=== PATIENT | female | born 1950 | race Caucasian/White ===

== ENCOUNTER 2017-03-19 12:45 | Inpatient (IN) | payer MEDICARE ==
[2017-03-19] MEDS ORDERED: oxyCODONE/Acetamin 5/325 MG* TAB PO ONE (13:41)
--- NOTE | 2017-03-19 14:34 | RAD ---
HISTORY: Bilateral lower extremity cellulitis COMPARISONS: None relevant TECHNIQUE: Multiple transverse and longitudinal ultrasound images were obtained of the bilateral lower extremities from the level of the common femoral vein inferiorly through to the infrapopliteal veins using grayscale, color Doppler, and spectral Doppler imaging with and without compression and with augmentation. FINDINGS: The study is limited by body habitus. This limits evaluation of the calf veins VEINS: The venous system of the bilateral lower extremities is compressible throughout its course, with normal flow on color Doppler imaging and normal response to augmentation on spectral Doppler imaging. SOFT TISSUES: Unremarkable. OTHER FINDINGS: None. IMPRESSION: 1. LIMITED STUDY. 2. NO RIGHT LOWER EXTREMITY DEEP VEIN THROMBOSIS. 3. NO LEFT LOWER EXTREMITY DEEP VEIN THROMBOSIS
[2017-03-19 14:44] LABS: Hematocrit 41 % (35-47); Hemoglobin 13.4 g/dl (12.0-16.0); Mean Corpuscular HGB Conc 33 g/dl (31-36); Mean Corpuscular Hemoglobin 32 pg (27-31); Mean Corpuscular Volume 97 fL (80-97); Mean Platelet Volume 9 um3 (7.4-10.4); Red Blood Count 4.21 10^6/ul (4.0-5.4); Red Cell Distribution Width 17 % (10.5-15); White Blood Count 6.1 10^3/ul (3.5-10.8)
[2017-03-19] MEDS ORDERED: Morphine INJ* 4 MG/ML 1 ML CARPUJECT SUBCUT ONE (14:47)
[2017-03-19] MEDS ORDERED: Morphine INJ* 4 MG/ML 1 ML CARPUJECT ONE (14:49)
[2017-03-19] MEDS ORDERED: Morphine INJ* 4 MG/ML 1 ML CARPUJECT IV ONE ×2 (14:51→16:49)
[2017-03-19 14:55] LABS: Albumin 3.9 g/dL (3.2-5.2); BUN/Creatinine Ratio 14.3 (8-20); C Reactive Protein 19.4 mg/L (< 5.00); Calcium 10.1 mg/dL (8.6-10.3); EGFR Non-African American 62.2 (>60); Potassium 3.3 mmol/L (3.5-5.0); Total Bilirubin 0.8 mg/dL (0.2-1.0); Total Protein 6.9 g/dL (6.4-8.9); Uric Acid 8.2 mg/dL (2.3-6.6)
[2017-03-19] MEDS ORDERED: cefTRIAXone(*) 1 GM in NS 0.9% 50 ML* 50 ML IVPB ONE (16:03)
[2017-03-19] MEDS ORDERED: Potassium Chlor TAB* 20 MEQ TAB.ER PO ONE (16:38)
--- NOTE | 2017-03-19 16:45 | ED ---
Magda Fraga Gabriel scribed for Charly Cm MD on 03/19/17 at 1307 . Complex/Multi-Sys Presentation - HPI Summary HPI Summary: This patient is a 66 year old F BIBA to [facility] with a chief complaint of cellulitis bilateral in both LE. The patient rates the pain 10/10 in severity. Patient reports chronic pain in her upper back, legs, and arms. She also reports SOB while lying down and itching on LE. Patient is able to ambulate with a walker. - History Of Current Complaint Time Seen by Provider: 03/19/17 12:53 Hx Obtained From: Patient Onset/Duration: Still Present Timing: Constant Associated Signs And Symptoms: Positive: SOB, Other - chronic pain in her upper back, legs, and arms. Itching in LE - Allergies/Home Medications Allergies/Adverse Reactions: Allergies Allergy/AdvReac Type Severity Reaction Status Date / Time Iodine Allergy Rash Verified 02/22/17 12:35 Povidone Iodine Allergy Rash Verified 02/22/17 12:35 [From Betadine] hormones Allergy See Comment Uncoded 02/22/17 12:35 PMH/Surg Hx/FS Hx/Imm Hx Previously Healthy: No Cardiovascular History: Reports: Hx Deep Vein Thrombosis, Hx Hypertension Respiratory History: Reports: Hx Chronic Bronchitis, Hx Pulmonary Embolism - 2X Musculoskeletal History: Reports: Hx Back Problems Sensory History: Reports: Hx Contacts or Glasses Denies: Hx Hearing Aid Opthamlomology History: Reports: Hx Contacts or Glasses Psychiatric History: Reports: Hx Anxiety, Hx Eating Disorder, Hx Depression - Cancer History Cancer Type, Location and Year: breast ca Hx Chemotherapy: - unk Hx Radiation Therapy: - unk - Surgical History Surgery Procedure, Year, and Place: hysterectomy, "chest wall replacement," bilateral mastectomy - Family History Known Family History: Positive: Blood Disorder - myelodysplasia (father) - Social History Alcohol Use: None Hx Substance Use: No Substance Use Type: Reports: None Smoking Status (MU): Heavy Every Day Tobacco Smoker Type: Cigarettes Amount Used/How Often: 1 ppd Have You Smoked in the Last Year: Yes Review of Systems Positive: Shortness Of Breath - while lying Positive: Other - chronic pain in her upper back, legs, and arms Positive: Other - Itching in LE All Other Systems Reviewed And Are Negative: Yes Physical Exam - Summary Physical Exam Summary: VITAL SIGNS: Reviewed. GENERAL: ~Patient is an obese female who is lying comfortable in the stretcher with no distress. ~Patient is not in any acute respiratory distress. HEAD AND FACE: No signs of trauma. ~No ecchymosis, hematomas or skull depressions. No sinus tenderness. EYES: PERRLA, EOMI x 2, No injected conjunctiva, no nystagmus. EARS: Hearing grossly intact. Ear canals and tympanic membranes are within normal limits. MOUTH: Oropharynx within normal limits. NECK: Supple, trachea is midline, no adenopathy, no JVD, no carotid bruit, no c- spine tenderness, neck with full ROM. CHEST: Symmetric, no tenderness at palpation LUNGS: Clear to auscultation bilaterally. No wheezing or crackles. CVS: Regular rate and rhythm, S1 and S2 present, no murmurs or gallops appreciated. ABDOMEN: Soft, non-tender. No signs of distention. No rebound no guarding, and no masses palpated. Bowel sounds are normal. EXTREMITIES: FROM in all major joints, no cyanosis or clubbing. There is bilateral 2+ edema extending from her pelvis to her feet. There is also bilateral LE erythema with a wound on her right lemus NEURO: Alert and oriented x 3. No acute neurological deficits. Speech is normal and follows commands. SKIN: Dry and warm Triage Information Reviewed: Yes Vital Signs On Initial Exam: Initial Vitals Temp Pulse Resp BP Pulse Ox 97.6 F 80 14 106/61 98 03/19/17 12:58 03/19/17 12:58 03/19/17 12:58 03/19/17 12:58 03/19/17 12:58 Vital Signs Reviewed: Yes Diagnostics - Vital Signs Vital Signs Temp Pulse Resp BP Pulse Ox 03/19/17 14:53 20 03/19/17 14:33 20 03/19/17 14:20 86 21 106/84 97 03/19/17 14:00 94 19 65/50 86 03/19/17 13:30 82 16 98/64 99 03/19/17 13:03 87 14 98 03/19/17 13:01 106/61 03/19/17 12:58 97.6 F 80 14 106/61 98 - Laboratory Lab Results: Lab Results 03/19/17 03/19/17 03/19/17 Range/Units 14:31 14:31 14:31 WBC 6.1 (3.5-10.8) 10^3/ul RBC 4.21 (4.0-5.4) 10^6/ul Hgb 13.4 (12.0-16.0) g/dl Hct 41 (35-47) % MCV 97 (80-97) fL MCH 32 H (27-31) pg MCHC 33 (31-36) g/dl RDW 17 H (10.5-15) % Plt Count 177 (150-450) 10^3/ul MPV 9 (7.4-10.4) um3 Neut % (Auto) 65.4 (38-83) % Lymph % (Auto) 18.6 L (25-47) % Porter % (Auto) 10.0 H (1-9) % Eos % (Auto) 4.8 (0-6) % Baso % (Auto) 1.2 (0-2) % Absolute Neuts (auto) 4.0 (1.5-7.7) 10^3/ul Absolute Lymphs (auto) 1.1 (1.0-4.8) 10^3/ul Absolute Monos (auto) 0.6 (0-0.8) 10^3/ul Absolute Eos (auto) 0.3 (0-0.6) 10^3/ul Absolute Basos (auto) 0.1 (0-0.2) 10^3/ul Absolute Nucleated RBC 0 10^3/ul Nucleated RBC % 0.1 Sodium 142 (133-145) mmol/L Potassium 3.3 L (3.5-5.0) mmol/L Chloride 105 (101-111) mmol/L Carbon Dioxide 30 (22-32) mmol/L Anion Gap 7 (2-11) mmol/L BUN 13 (6-24) mg/dL Creatinine 0.91 (0.51-0.95) mg/dL Est GFR ( Amer) 80.0 (>60) Est GFR (Non-Af Amer) 62.2 (>60) BUN/Creatinine Ratio 14.3 (8-20) Glucose 93 (70-100) mg/dL Lactic Acid 1.2 (0.5-2.0) mmol/L Uric Acid 8.2 H (2.3-6.6) mg/dL Calcium 10.1 (8.6-10.3) mg/dL Total Bilirubin 0.80 (0.2-1.0) mg/dL AST 15 (13-39) U/L ALT 7 (7-52) U/L Alkaline Phosphatase 126 H (34-104) U/L C-Reactive Protein 19.40 H (< 5.00) mg/L B-Natriuretic Peptide ( - 100) pg/mL Total Protein 6.9 (6.4-8.9) g/dL Albumin 3.9 (3.2-5.2) g/dL Globulin 3.0 (2-4) g/dL Albumin/Globulin Ratio 1.3 (1-3) // Range/Units 14:31 WBC (3.5-10.8) 10^3/ul RBC (4.0-5.4) 10^6/ul Hgb (12.0-16.0) g/dl Hct (35-47) % MCV (80-97) fL MCH (27-31) pg MCHC (31-36) g/dl RDW (10.5-15) % Plt Count (150-450) 10^3/ul MPV (7.4-10.4) um3 Neut % (Auto) (38-83) % Lymph % (Auto) (25-47) % Porter % (Auto) (1-9) % Eos % (Auto) (0-6) % Baso % (Auto) (0-2) % Absolute Neuts (auto) (1.5-7.7) 10^3/ul Absolute Lymphs (auto) (1.0-4.8) 10^3/ul Absolute Monos (auto) (0-0.8) 10^3/ul Absolute Eos (auto) (0-0.6) 10^3/ul Absolute Basos (auto) (0-0.2) 10^3/ul Absolute Nucleated RBC 10^3/ul Nucleated RBC % Sodium (133-145) mmol/L Potassium (3.5-5.0) mmol/L Chloride (101-111) mmol/L Carbon Dioxide (22-32) mmol/L Anion Gap (2-11) mmol/L BUN (6-24) mg/dL Creatinine (0.51-0.95) mg/dL Est GFR ( Amer) (>60) Est GFR (Non-Af Amer) (>60) BUN/Creatinine Ratio (8-20) Glucose (70-100) mg/dL Lactic Acid (0.5-2.0) mmol/L Uric Acid (2.3-6.6) mg/dL Calcium (8.6-10.3) mg/dL Total Bilirubin (0.2-1.0) mg/dL AST (13-39) U/L ALT (7-52) U/L Alkaline Phosphatase (34-104) U/L C-Reactive Protein (< 5.00) mg/L B-Natriuretic Peptide 60 ( - 100) pg/mL Total Protein (6.4-8.9) g/dL Albumin (3.2-5.2) g/dL Globulin (2-4) g/dL Albumin/Globulin Ratio (1-3) Result Diagrams: 03/19/17 14:31 03/19/17 14:31 Lab Statement: Any lab studies that have been ordered have been reviewed, and results considered in the medical decision making process. - Additional Comments Diagnostic Additional Comments: Venous Doppler study reveals, per radiologist, 1. LIMITED STUDY. 2. NO RIGHT LOWER EXTREMITY DEEP VEIN THROMBOSIS. 3. NO LEFT LOWER EXTREMITY DEEP VEIN THROMBOSIS ED physician has reviewed this radiology report and agrees Complex Multi-Symp Course/Dx Assessment/Plan: In the ED course an IV access was obtained. Patient was placed in a threat monitoring analyst. Labs without any significant abnormality except for K+ 33 for which she was given potassium chloride. CRP is 19.4. Troponin #1: and Troponin # 2 (4 hours later): EKG shows a NSR at w/o ST elevations. CXR impression: No acute pathology. B/L LE U/S impression: 1. LIMITED STUDY. 2. NO RIGHT LOWER EXTREMITY DEEP VEIN THROMBOSIS. 3. NO LEFT LOWER EXTREMITY DEEP VEIN THROMBOSIS. Patient was started in Ceftriaxone for B/L LE cellulitis. I discuss my physical exam, findings and test results with Dr. Mata from the hospitalist services and she agrees to admit patient to his services. Patient is hemodynamically stable alert and oriented x 3. - Diagnoses Provider Diagnoses: Cellulitis of lower extremity, Edema of both lower legs due to peripheral venous insufficiency - Physician Notifications Discussed Care Of Patient With: Meka Mata Time Discussed With Above Provider: 16:16 Instructed by Provider To: Other - Discussed patient care with Dr. Mata, Hopitalist, who agreed to admit the patient Discharge - Discharge Plan Condition: Stable Disposition: ADMITTED TO [facility] Referrals: Dee BANEGAS,Orlando Todd [Primary Care Provider] - The documentation as recorded by the Magda her Gabriel accurately reflects the service I personally performed and the decisions made by me, Charly Cm MD.
[2017-03-19] MEDS ORDERED: Ondansetron INJ* 2 MG/ML VIAL IV PRN (16:53)
[2017-03-19] MEDS ORDERED: oxyCODONE/Acetamin 5/325 MG* TAB PO PRN (16:54)
[2017-03-19] MEDS ORDERED: Furosemide IV* 10 MG/ML VIAL (40 MG) IV SLOW PU ONE (17:01)
[2017-03-19] MEDS ORDERED: oxyCODONE TAB* 5 MG TAB PO PRN (17:03)
[2017-03-19 18:36] LABS: Urine Bacteria Absent (Absent); Urine Bilirubin Negative (Negative); Urine Glucose Negative (Negative); Urine Nitrite Negative (Negative)
--- NOTE | 2017-03-19 19:10 | HP ---
CC: Dr. Orlando Price HISTORY AND PHYSICAL: DATE OF ADMISSION: 03/19/17 TIME OF EVALUATION: 04:30 p.m. PRIMARY CARE PROVIDER: Dr. Orlando Price. CHIEF COMPLAINT: "My legs are swollen and then red." HISTORY OF PRESENT ILLNESS: Mrs. Hutton is a 66-year-old lady with a past medical history of morbid o besity, history of multiple DVTs and PEs, chronically anticoagulated on Coumadin, remote history of b reast cancer, chronic pain, depression, recent admission for right lower extremity cellulitis and acu te diastolic CHF exacerbation that presented to the emergency room with complaints of bilateral lower extremity edema and erythema. The patient was admitted to [facility] from February 22 to February 25. She was discharged home on furose mide 40 mg daily and Keflex. She states that her edema had improved and the right lower extremity er ythema was also improved, although she does have chronic skin changes. She states that she was tryin g to be compliant with medication and diet, but 5 days ago she started to notice worsening of the rashida ateral lower extremity edema with erythema that started on her feet and ascended all the way to mid t high. She denies fever, but she did have some chills and both legs became severely painful to the po int that she was not able to transfer or ambulate with her walker as usual. On her prior admission, the precipitant factor had been a cat scratch to her right leg, but this time she is not aware of any trauma. She actually thought that the right lower extremity wound was much improved from before. PAST MEDICAL HISTORY: 1. Morbid obesity. 2. History of multiple DVTs and PEs, on chronic anticoagulation on warfarin. 3. Remote history of breast cancer, status post bilateral mastectomy. 4. Chronic pain. 5. Depression. 6. Recent admission for right lower extremity cellulitis. 7. Newly diagnosed diastolic heart failure. MEDICATION LIST: 1. Cholecalciferol 50,000 units p.o. weekly. 2. Furosemide 40 mg p.o. b.i.d. 3. Lorazepam 0.5 mg p.o. at bedtime. 4. Mupirocin 2% ointment topical daily. 5. Nystatin powder topical daily p.r.n. for rash. 6. OxyContin 20 mg p.o. q.12 hours. 7. Oxycodone 10/325 mg 1 tablet p.o. t.i.d. p.r.n. pain. 8. Paroxetine 40 mg p.o. q.a.m. 9. Potassium chloride 20 mEq p.o. b.i.d. with meals. 10. Pramipexole 2 mg p.o. at bedtime. 11. Lyrica 75 mg p.o. t.i.d. 12. Warfarin 2.5 mg p.o. daily. ALLERGIES: With IODINE, the patient had the rash and when the patient was on HORMONES, she had a PE. FAMILY HISTORY: Reviewed and noncontributory. SOCIAL HISTORY: The patient smokes half a pack a day. No history of alcohol or drug use. Surrogate decision maker is her sister, Elaine Abel; phone number is [phone]. REVIEW OF SYSTEMS: A 14-point review of systems was performed and all the pertinent negative and pos itive findings are in the HPI. PHYSICAL EXAMINATION GENERAL: The patient is an elderly, morbidly obese lady, sitting up in the ED stretcher, in no acute distress. VITAL SIGNS: Temperature 97.6, heart rate is 86, respiratory rate is 20, oxygen saturation is 97% on room air, blood pressure is 106/84. HEENT: Pupils are equal. Moist mucous membranes. CHEST: Breath sounds present bilaterally with bibasilar rales. The patient is status post bilateral mastectomies. CVS: Normal S1, S2. Regular rate and rhythm. ABDOMEN: Obese with significant pannus and lymphedema, but no erythema. The patient has a moist lizette thematous rash to her inguinal folds. EXTREMITIES: Lower extremity edema. The patient has chronic lymphedema that appears to be worse at this time with edema extending from her feet all the way to mid thigh. This erythema does not extend to her upper thigh or genital/pannus area. NEUROLOGIC: She is alert, awake, and oriented x3. Able to move all 4 extremities. LABORATORY AND IMAGING DATA: Her CBC showed a WBC of 6.1, hemoglobin of 13.4, hematocrit of 41, abdoulaye telets of 177 with 65% neutrophils. INR is 1.8. Chemistry showed sodium of 142, potassium 3.3, chlo ride of 105, bicarb of 30, BUN of 13, creatinine 0.9, glucose of 93, lactic acid of 1.2, uric acid of 8.2, calcium of 10.1. LFTs are normal except for alk phos of 126. Lower extremity Doppler showed no DVT on both lower extremities. ASSESSMENT AND PLAN: Mrs. Hutton is a 66-year-old lady with a past medical history of morbid obesity, history of multiple DVTs and PEs, breast cancer, status post bilateral mastectomy, chronic pain, dep ression, tobacco abuse, who presents to the emergency room with complaints of bilateral lower extremi ty pain, edema, and erythema, found to have acute diastolic congestive heart failure exacerbation and bilateral lower extremity cellulitis. 1. Acute diastolic congestive heart failure exacerbation. This is certainly driving her bilateral l ower extremity edema. We are going to change her furosemide to IV, monitor I's and O's and daily mya ghts. 2. Bilateral lower extremity cellulitis. The patient will be treated with cefepime. She states josé luis t her right lower extremity wound is much improved from before. I am going to request a wound consul t. 3. Intertrigo. We are going to give her nystatin powder. 4. History of PE and DVT. We are going to continue her warfarin. INR is 1.8 at this time. If by t omorrow her INR is still below 2, she may need some bridging with Lovenox. 5. Hypokalemia. We will replete. 6. DVT prophylaxis. The patient has a score of 8 on the DVT Prophylaxis Risk Assessment Guide and s he is already anticoagulated with Coumadin, but SCDs are contraindicated due to her lower extremity i nfection. 7. Code status is full. TIME SPENT: Approximately 65 minutes were spent with the patient interview, medical records review, physical examination to complete this admission; more than half of this time was spent [id number] with the patient in coordination of care. [id number]/[facility] #: [id number]
[2017-03-19] MEDS: Warfarin TAB(*) 2.5 MG PO SCH (19:23)
[2017-03-19] MEDS: Potassium Chlor TAB* 20 MEQ TAB.ER PO SCH (19:25)
[2017-03-19] MEDS: Cefepime(*) 1 GM in NS 0.9% 50 ML* 50 ML IVPB SCH (19:25)
[2017-03-19] MEDS: Nystatin TOP POWDER* 15 GM BTL TOPICAL SCH (21:12)
[2017-03-19] MEDS: oxyCODONE SR TAB(*) 20 MG TAB.SR PO SCH (21:17)
[2017-03-19] MEDS: Pregabalin CAP(*) 25 MG PO SCH (21:17)
[2017-03-19] MEDS: Acetaminophen TAB* 325 MG PO PRN (21:18)
[2017-03-19] MEDS: Pramipexole TAB* 0.5 MG PO SCH (21:19)
[2017-03-19] MEDS: LORazepam TAB(*) 0.5 MG PO SCH (21:20)
[2017-03-20] MEDS: Acetaminophen TAB* 325 MG PO PRN (05:43)
[2017-03-20] MEDS: Cefepime(*) 1 GM in NS 0.9% 50 ML* 50 ML IVPB SCH (06:00)
[2017-03-20] MEDS: oxyCODONE TAB* 5 MG TAB PO PRN ×4 (06:07→22:44)
[2017-03-20] MEDS: oxyCODONE/Acetamin 5/325 MG* TAB PO PRN ×3 (06:07→22:45)
[2017-03-20 07:31] LABS: Calcium 9.2 mg/dL (8.6-10.3); EGFR Non-African American 61.5 (>60); Potassium 3.7 mmol/L (3.5-5.0)
[2017-03-20] MEDS ORDERED: Furosemide IV* 10 MG/ML VIAL (40 MG) IV SLOW PU ONE (07:37)
[2017-03-20] MEDS ORDERED: Furosemide IV* 10 MG/ML VIAL (40 MG) ONE (07:41)
[2017-03-20] MEDS: Potassium Chlor TAB* 20 MEQ TAB.ER PO SCH ×2 (07:44→17:04)
[2017-03-20] MEDS: Pregabalin CAP(*) 25 MG PO SCH ×3 (07:45→22:46)
[2017-03-20] MEDS: PARoxetine HCL TAB* 40 MG PO SCH (07:45)
[2017-03-20] MEDS: oxyCODONE SR TAB(*) 20 MG TAB.SR PO SCH ×2 (07:45→22:45)
[2017-03-20 08:28] LABS: Hematocrit 36 % (35-47); Hemoglobin 11.6 g/dl (12.0-16.0); Mean Corpuscular HGB Conc 33 g/dl (31-36); Mean Corpuscular Hemoglobin 32 pg (27-31); Mean Corpuscular Volume 98 fL (80-97); Mean Platelet Volume 9 um3 (7.4-10.4); Red Blood Count 3.64 10^6/ul (4.0-5.4); Red Cell Distribution Width 16 % (10.5-15); White Blood Count 5.2 10^3/ul (3.5-10.8)
[2017-03-20] MEDS ORDERED: Cefepime(*) 1 GM in D5W 50 ML BAG* 50 ML IVPB SCH (08:45)
--- NOTE | 2017-03-20 09:56 | PN ---
Subjective Date of Service: 03/20/17 Interval History: HOSPITALIST PROGRESS NOTE Patient seen and examined at bedside. She offers no new complaints today, getting ready to work with PT. Family History: Unchanged from Admission Social History: Unchanged from Admission Past Medical History: Unchanged from Admission Objective Active Medications: Acetaminophen (Tylenol Tab*) 650 mg PO Q6H PRN PRN Reason: pain/fever Last Admin: 03/20/17 05:43 Dose: 650 mg Cefepime HCl 1 gm/ Dextrose 50 mls @ 100 mls/hr IVPB 0600,1800 [facility] Lorazepam (Ativan Tab(*)) 0.5 mg PO BEDTIME [facility] Last Admin: 03/19/17 21:20 Dose: 0.5 mg Nystatin (Nystatin Top Powder*) 1 applic TOPICAL TID [facility] Last Admin: 03/19/17 21:12 Dose: 1 applic Ondansetron HCl (Zofran Inj*) 4 mg IV Q6H PRN PRN Reason: NAUSEA Oxycodone HCl (Oxycontin(*)) 20 mg PO Q12HR [facility] Last Admin: 03/20/17 07:45 Dose: 20 mg Oxycodone HCl (Roxycodone Tab*) 5 mg PO Q6H PRN PRN Reason: PAIN Last Admin: 03/20/17 06:07 Dose: 5 mg Oxycodone/Acetaminophen (Percocet 5/325 Tab*) 1 tab PO Q6H PRN PRN Reason: PAIN Last Admin: 03/20/17 06:07 Dose: 1 tab Paroxetine HCl (Paxil Tab*) 40 mg PO QAM [facility] Last Admin: 03/20/17 07:45 Dose: 40 mg Potassium Chloride (Klor Con Er Tab*) 20 meq PO BID WITH MEALS [facility] Last Admin: 03/20/17 07:44 Dose: 20 meq Pramipexole Dihydrochloride (Mirapex Tab*) 2 mg PO BEDTIME [facility] Last Admin: 03/19/17 21:19 Dose: 2 mg Pregabalin (Lyrica Cap(*)) 75 mg PO TID [facility] Last Admin: 03/20/17 07:45 Dose: 75 mg Warfarin Sodium (Coumadin Tab(*)) 2.5 mg PO DAILY@1700 [facility] PRN Reason: Protocol Last Admin: 03/19/17 19:23 Dose: 2.5 mg Vital Signs 03/19/17 03/20/17 03/20/17 23:51 00:09 03:53 Temperature 98.5 F 98.7 F Pulse Rate 92 91 Respiratory 20 18 20 Rate Blood Pressure 94/54 92/56 (mmHg) O2 Sat by Pulse 92 93 Oximetry Oxygen Devices in Use Now: None Appearance: Elderly morbid obese lady sitting up in bed in NAD. Eyes: No Scleral Icterus Ears/Nose/Mouth/Throat: Mucous Membranes Moist Neck: Trachea Midline Respiratory: Symmetrical Chest Expansion and Respiratory Effort, - - BS+ bilaterally with bibasilar rales Cardiovascular: RRR - Normal S1 and S2 Extremities: - - Bilateral LE edema chronic lymphedema, with erythema, less intense than yesterday Neurological: Alert and Oriented x 3, NL Muscle Strength and Tone Result Diagrams: 03/20/17 08:20 03/20/17 05:51 Assess/Plan/Problems-Billing Assessment: Mrs. Hutton is a 66yo F with PMH of morbid obesity with BMI 44, multiple PE/DVTs , remote h/o breast CA s/p bilateral mastectomies, chronic pain, depression, diastolic CHF, who presented to ED with worsening edema/erythema of bilateral LE , found to have bilateral LE cellulitis and CHF exacerbation. - Patient Problems (1) Acute diastolic CHF (congestive heart failure) Comment: - Continue diuresis with Furosemide, monitor I/Os and daily weights. (2) Cellulitis Comment: - No purulence, probable strep infection. - Continue Cefepime. - Wound consult requested. (3) Intertrigo Comment: - Continue Nystatin powder. (4) History of pulmonary embolus (PE) Comment: - INR is 2.2. - Continue Warfarin. (5) DVT prophylaxis Comment: - Warfarin. (6) Full code status (7) Physical deconditioning Comment: - PT evaluation. Status and Disposition: Inpatient.
[2017-03-20] MEDS: Nystatin TOP POWDER* 15 GM BTL TOPICAL SCH ×3 (11:20→23:28)
[2017-03-20] MEDS: Cefepime(*) 1 GM in D5W 50 ML BAG* 50 ML IVPB SCH (17:04)
[2017-03-20] MEDS: Lidocaine PATCH 5%* 1 PATCH TRANSDERM SCH (17:04)
[2017-03-20] MEDS: Warfarin TAB(*) 2.5 MG PO SCH (17:05)
[2017-03-20] MEDS: Pramipexole TAB* 0.5 MG PO SCH (22:46)
[2017-03-20] MEDS: LORazepam TAB(*) 0.5 MG PO SCH (22:46)
[2017-03-20] MEDS: Lidocaine Patch REMOVE* 1 NOTE MISC SCH (22:47)
[2017-03-21] MEDS: Cefepime(*) 1 GM in D5W 50 ML BAG* 50 ML IVPB SCH ×2 (06:55→17:20)
[2017-03-21] MEDS: Lidocaine PATCH 5%* 1 PATCH TRANSDERM SCH (07:55)
[2017-03-21] MEDS: Pregabalin CAP(*) 25 MG PO SCH ×3 (07:56→22:18)
[2017-03-21] MEDS: oxyCODONE/Acetamin 5/325 MG* TAB PO PRN ×2 (07:56→14:41)
[2017-03-21] MEDS: oxyCODONE TAB* 5 MG TAB PO PRN ×2 (07:56→14:41)
[2017-03-21] MEDS: PARoxetine HCL TAB* 40 MG PO SCH (07:57)
[2017-03-21] MEDS: oxyCODONE SR TAB(*) 20 MG TAB.SR PO SCH ×2 (07:57→22:18)
[2017-03-21] MEDS: Potassium Chlor TAB* 20 MEQ TAB.ER PO SCH ×2 (07:57→17:20)
[2017-03-21 08:09] LABS: BUN/Creatinine Ratio 15.4 (8-20); Calcium 8.9 mg/dL (8.6-10.3); EGFR African American 68.6 (>60); EGFR Non-African American 53.3 (>60)
[2017-03-21] MEDS ORDERED: Furosemide IV* 10 MG/ML VIAL (40 MG) IV SLOW PU ONE (09:09)
[2017-03-21] MEDS: Nystatin TOP POWDER* 15 GM BTL TOPICAL SCH ×3 (11:40→22:16)
--- NOTE | 2017-03-21 14:45 | PN ---
Subjective Date of Service: 03/21/17 Interval History: HOSPITALIST PROGRESS NOTE Patient seen and examined at bedside. She offers no new complaints today. Breathing is easier, legs are less swollen and red. Family History: Unchanged from Admission Social History: Unchanged from Admission Past Medical History: Unchanged from Admission Objective Active Medications: Acetaminophen (Tylenol Tab*) 650 mg PO Q6H PRN PRN Reason: pain/fever Last Admin: 03/20/17 05:43 Dose: 650 mg Cefepime HCl 1 gm/ Dextrose 50 mls @ 100 mls/hr IVPB 0600,1800 REPLACED BY [facility] Last Admin: 03/21/17 06:55 Dose: 100 mls/hr Lidocaine (Lidoderm 5% Patch*) 1 patch TRANSDERM DAILY REPLACED BY [facility] Last Admin: 03/21/17 07:55 Dose: 1 patch Lorazepam (Ativan Tab(*)) 0.5 mg PO BEDTIME REPLACED BY [facility] Last Admin: 03/20/17 22:46 Dose: 0.5 mg Nystatin (Nystatin Top Powder*) 1 applic TOPICAL TID REPLACED BY [facility] Last Admin: 03/21/17 11:40 Dose: 1 applic Ondansetron HCl (Zofran Inj*) 4 mg IV Q6H PRN PRN Reason: NAUSEA Oxycodone HCl (Oxycontin(*)) 20 mg PO Q12HR REPLACED BY [facility] Last Admin: 03/21/17 07:57 Dose: 20 mg Oxycodone HCl (Roxycodone Tab*) 10 mg PO Q6H PRN PRN Reason: PAIN Last Admin: 03/21/17 07:56 Dose: 10 mg Oxycodone/Acetaminophen (Percocet 5/325 Tab*) 1 tab PO Q6H PRN PRN Reason: PAIN Last Admin: 03/21/17 07:56 Dose: 1 tab Paroxetine HCl (Paxil Tab*) 40 mg PO QAM REPLACED BY [facility] Last Admin: 03/21/17 07:57 Dose: 40 mg Pharmacy Profile Note (Lidocaine Patch Remove*) 1 note N/A 2100 REPLACED BY [facility] Last Admin: 03/20/17 22:47 Dose: 1 note Potassium Chloride (Klor Con Er Tab*) 20 meq PO BID WITH MEALS REPLACED BY [facility] Last Admin: 03/21/17 07:57 Dose: 20 meq Pramipexole Dihydrochloride (Mirapex Tab*) 2 mg PO BEDTIME REPLACED BY [facility] Last Admin: 03/20/17 22:46 Dose: 2 mg Pregabalin (Lyrica Cap(*)) 75 mg PO TID REPLACED BY [facility] Last Admin: 03/21/17 07:56 Dose: 75 mg Warfarin Sodium (Coumadin Tab(*)) 2.5 mg PO DAILY@1700 REPLACED BY [facility] PRN Reason: Protocol Last Admin: 03/20/17 17:05 Dose: 2.5 mg Vital Signs 03/21/17 03/21/17 03/21/17 07:57 08:00 08:11 Temperature 98.1 F Pulse Rate 86 Respiratory 16 16 16 Rate Blood Pressure 103/58 (mmHg) O2 Sat by Pulse 94 Oximetry Oxygen Devices in Use Now: None Appearance: Morbid obese lady sitting up in a recliner in NAD. Eyes: No Scleral Icterus Ears/Nose/Mouth/Throat: Mucous Membranes Moist Neck: Trachea Midline Respiratory: Symmetrical Chest Expansion and Respiratory Effort, - - BS+ bialterally decreased in bases Cardiovascular: RRR - Normal S1 and s2 Abdominal: NL Sounds; No Tenderness; No Distention - large pannus, but with no erythema Extremities: - - Bilateral LE lymphedema with chronic skin changes, erythema is improving Neurological: Alert and Oriented x 3, NL Muscle Strength and Tone Result Diagrams: 03/20/17 08:20 03/21/17 05:39 Assess/Plan/Problems-Billing Assessment: Mrs. Hutton is a 66yo F with PMH of morbid obesity with BMI 44, multiple PE/DVTs , remote h/o breast CA s/p bilateral mastectomies, chronic pain, depression, diastolic CHF, who presented to ED with worsening edema/erythema of bilateral LE , found to have bilateral LE cellulitis and CHF exacerbation. - Patient Problems (1) Acute diastolic CHF (congestive heart failure) Comment: - Continue diuresis with Furosemide, monitor I/Os and daily weights. (2) Cellulitis Comment: - No purulence, probable strep infection. - Continue Cefepime. - Wound consult requested. (3) Intertrigo Comment: - Continue Nystatin powder. (4) History of pulmonary embolus (PE) Comment: - INR is 2.2. - Continue Warfarin. (5) DVT prophylaxis Comment: - Warfarin. (6) SMILEY (obstructive sleep apnea) Comment: - Non compliant with CPAP at home, but willing to try it again in the hospital. (7) Full code status (8) Physical deconditioning Comment: - PT evaluation. Status and Disposition: Inpatient.
[2017-03-21] MEDS: Warfarin TAB(*) 2.5 MG PO SCH (17:20)
[2017-03-21] MEDS: LORazepam TAB(*) 0.5 MG PO SCH (22:17)
[2017-03-21] MEDS: Lidocaine Patch REMOVE* 1 NOTE MISC SCH (22:19)
[2017-03-21] MEDS: Pramipexole TAB* 0.5 MG PO SCH (22:19)
[2017-03-22] MEDS: oxyCODONE TAB* 5 MG TAB PO PRN ×4 (01:10→23:06)
[2017-03-22] MEDS: oxyCODONE/Acetamin 5/325 MG* TAB PO PRN ×3 (01:12→17:04)
[2017-03-22] MEDS: Cefepime(*) 1 GM in D5W 50 ML BAG* 50 ML IVPB SCH ×2 (05:19→17:04)
[2017-03-22 06:42] LABS: Hematocrit 35 % (35-47); Hemoglobin 11.6 g/dl (12.0-16.0); Mean Corpuscular HGB Conc 33 g/dl (31-36); Mean Corpuscular Hemoglobin 33 pg (27-31); Mean Corpuscular Volume 98 fL (80-97); Mean Platelet Volume 9 um3 (7.4-10.4); Red Blood Count 3.56 10^6/ul (4.0-5.4); Red Cell Distribution Width 16 % (10.5-15); White Blood Count 5.8 10^3/ul (3.5-10.8)
[2017-03-22 06:55] LABS: BUN/Creatinine Ratio 16.3 (8-20); Calcium 9.2 mg/dL (8.6-10.3); EGFR African American 68.6 (>60); EGFR Non-African American 53.3 (>60)
[2017-03-22] MEDS: Lidocaine PATCH 5%* 1 PATCH TRANSDERM SCH (08:08)
[2017-03-22] MEDS: Pregabalin CAP(*) 25 MG PO SCH ×3 (08:09→22:24)
[2017-03-22] MEDS: PARoxetine HCL TAB* 40 MG PO SCH (08:09)
[2017-03-22] MEDS: oxyCODONE SR TAB(*) 20 MG TAB.SR PO SCH ×2 (08:09→22:21)
[2017-03-22] MEDS: Potassium Chlor TAB* 20 MEQ TAB.ER PO SCH ×2 (08:10→17:03)
[2017-03-22] MEDS: Nystatin TOP POWDER* 15 GM BTL TOPICAL SCH ×3 (10:55→22:26)
[2017-03-22] MEDS ORDERED: Furosemide IV* 10 MG/ML 2 ML VIAL (20 MG) IV SLOW PU ONE (11:40)
--- NOTE | 2017-03-22 14:46 | PN ---
Subjective Date of Service: 03/22/17 Interval History: HOSPITALIST PROGRESS NOTE Patient seen and examined at bedside. She offers no new complaints today. Breathing is improved, but could not tolerated CPAP overnight. Family History: Unchanged from Admission Social History: Unchanged from Admission Past Medical History: Unchanged from Admission Objective Active Medications: Acetaminophen (Tylenol Tab*) 650 mg PO Q6H PRN PRN Reason: pain/fever Last Admin: 03/20/17 05:43 Dose: 650 mg Cefepime HCl 1 gm/ Dextrose 50 mls @ 100 mls/hr IVPB 0600,1800 [facility] Last Admin: 03/22/17 05:19 Dose: 100 mls/hr Lidocaine (Lidoderm 5% Patch*) 1 patch TRANSDERM DAILY [facility] Last Admin: 03/22/17 08:08 Dose: 1 patch Lorazepam (Ativan Tab(*)) 0.5 mg PO BEDTIME [facility] Last Admin: 03/21/17 22:17 Dose: 0.5 mg Nystatin (Nystatin Top Powder*) 1 applic TOPICAL TID [facility] Last Admin: 03/22/17 12:39 Dose: Not Given Ondansetron HCl (Zofran Inj*) 4 mg IV Q6H PRN PRN Reason: NAUSEA Oxycodone HCl (Oxycontin(*)) 20 mg PO Q12HR [facility] Last Admin: 03/22/17 08:09 Dose: 20 mg Oxycodone HCl (Roxycodone Tab*) 10 mg PO Q6H PRN PRN Reason: PAIN Last Admin: 03/22/17 08:09 Dose: 10 mg Oxycodone/Acetaminophen (Percocet 5/325 Tab*) 1 tab PO Q6H PRN PRN Reason: PAIN Last Admin: 03/22/17 08:10 Dose: 1 tab Paroxetine HCl (Paxil Tab*) 40 mg PO QAM [facility] Last Admin: 03/22/17 08:09 Dose: 40 mg Pharmacy Profile Note (Lidocaine Patch Remove*) 1 note N/A 2100 [facility] Last Admin: 03/21/17 22:19 Dose: 1 note Potassium Chloride (Klor Con Er Tab*) 20 meq PO BID WITH MEALS [facility] Last Admin: 03/22/17 08:10 Dose: 20 meq Pramipexole Dihydrochloride (Mirapex Tab*) 2 mg PO BEDTIME [facility] Last Admin: 03/21/17 22:19 Dose: 2 mg Pregabalin (Lyrica Cap(*)) 75 mg PO TID [facility] Last Admin: 03/22/17 12:39 Dose: 75 mg Warfarin Sodium (Coumadin Tab(*)) 2.5 mg PO DAILY@1700 [facility] PRN Reason: Protocol Last Admin: 03/21/17 17:20 Dose: 2.5 mg Vital Signs 03/22/17 03/22/17 03/22/17 04:41 07:56 08:00 Temperature 97.7 F Pulse Rate 68 Respiratory 18 20 16 Rate Blood Pressure 95/51 (mmHg) O2 Sat by Pulse 96 Oximetry Oxygen Devices in Use Now: None Appearance: Morbid obese lady sitting up in a recliner in NAD. Eyes: No Scleral Icterus Ears/Nose/Mouth/Throat: Mucous Membranes Moist Neck: Trachea Midline Respiratory: Symmetrical Chest Expansion and Respiratory Effort, - - BS+ bilaterally with bibasilar rales Cardiovascular: RRR - Normal S1 and S2 Abdominal: NL Sounds; No Tenderness; No Distention - with large pannus Extremities: - - Bilateral LE edema, with improvement of erythema Neurological: Alert and Oriented x 3, NL Muscle Strength and Tone Result Diagrams: 03/22/17 06:24 03/22/17 06:25 Assess/Plan/Problems-Billing Assessment: Mrs. Hutton is a 66yo F with PMH of morbid obesity with BMI 44, multiple PE/DVTs , remote h/o breast CA s/p bilateral mastectomies, chronic pain, depression, diastolic CHF, who presented to ED with worsening edema/erythema of bilateral LE , found to have bilateral LE cellulitis and CHF exacerbation. - Patient Problems (1) Acute diastolic CHF (congestive heart failure) Comment: - Continue diuresis with Furosemide, monitor I/Os and daily weights. (2) Cellulitis Comment: - No purulence, probable strep infection. - Continue Cefepime. - Wound consult requested. (3) Intertrigo Comment: - Continue Nystatin powder. (4) History of pulmonary embolus (PE) Comment: - INR is 3.05. - Hold Warfarin tonight. (5) DVT prophylaxis Comment: - Warfarin. (6) SMILEY (obstructive sleep apnea) Comment: - Non compliant with CPAP at home, but willing to try it again in the hospital. (7) Full code status (8) Physical deconditioning Comment: - PT evaluation appreciated. - Lengthy conversation with patient about SNF placement for rehab. She states she had bad experiences in SNFs before and will never go again. Her plan is to go home with assistance. Status and Disposition: Inpatient.
[2017-03-22] MEDS: LORazepam TAB(*) 0.5 MG PO SCH (22:20)
[2017-03-22] MEDS: Pramipexole TAB* 0.5 MG PO SCH (22:22)
[2017-03-22] MEDS: Lidocaine Patch REMOVE* 1 NOTE MISC SCH (22:26)
[2017-03-23] MEDS: oxyCODONE/Acetamin 5/325 MG* TAB PO PRN ×2 (04:09→16:07)
[2017-03-23 04:19] VITALS: BP 97/60
[2017-03-23] MEDS: Cefepime(*) 1 GM in D5W 50 ML BAG* 50 ML IVPB SCH (05:13)
[2017-03-23 06:44] LABS: BUN/Creatinine Ratio 18.5 (8-20); Calcium 9.1 mg/dL (8.6-10.3); EGFR Non-African American 61.5 (>60)
[2017-03-23] MEDS: Potassium Chlor TAB* 20 MEQ TAB.ER PO SCH (08:21)
[2017-03-23] MEDS: Lidocaine PATCH 5%* 1 PATCH TRANSDERM SCH (08:24)
[2017-03-23] MEDS: Nystatin TOP POWDER* 15 GM BTL TOPICAL SCH (08:25)
[2017-03-23] MEDS: oxyCODONE SR TAB(*) 20 MG TAB.SR PO SCH (08:25)
[2017-03-23] MEDS: PARoxetine HCL TAB* 40 MG PO SCH (08:27)
[2017-03-23] MEDS: Pregabalin CAP(*) 25 MG PO SCH ×2 (08:27→16:07)
[2017-03-23] MEDS: oxyCODONE TAB* 5 MG TAB PO PRN (16:08)
--- NOTE | 2017-03-24 02:09 | DS ---
DISCHARGE SUMMARY: DATE OF ADMISSION: 03/19/17 DATE OF DISCHARGE: 03/23/17 ADMITTING PROVIDER: Meka Luu MD ATTENDING PHYSICIANS: Meka Luu MD and Kaushik Godoy MD PRIMARY CARE PROVIDER: Dr. Orlando Price. CHIEF COMPLAINT: Swollen red legs. PRINCIPAL DIAGNOSIS: Congestive heart failure exacerbation and concern for cellulitis. PAST MEDICAL HISTORY: Morbid obesity, multiple DVT's and PE's on chronic anticoagulation with warfarin, breast cancer status post bilateral mastectomies , chronic pain, depression, diastolic heart failure (recently diagnosed), recent right lower extremity cellulitis. HISTORY OF PRESENT ILLNESS AND HOSPITAL COURSE: Mrs. Elidia Hutton is a 66-year- old female with PMH as above, recent admission for right lower extremity cellulitis and an acute diastolic CHF exacerbation, who presented with bilateral lower extremity edema and erythema. She was recently discharged on after admitted on 02/22/17 and discharged on Lasix 40 mg. She states that her edema and erythema on the right leg improved, stated that she is trying to be compliant with her medications and diet, but 5 days prior to admission, noticed worsening bilateral lower extremity edema and erythema, starting on the feet and ascending up to the mid thigh, denied any fevers. Did have some chills and both legs were extremely painful with any transfers or ambulation with her baseline walker. The patient was admitted for diastolic CHF exacerbation causing lower extremity edema and also treated for potential cellulitis bilaterally, although likely more related to her volume overload. She was started on cefepime 4 doses here, will be discharged on Keflex 5 additional days. She was diuresed with Lasix 40 mg IV for the first 2 days and 20 mg IV. She is unclear exactly what her diuretic dose is, states she has been taking it mostly, but has been having trouble going to the bathroom and planning on moving her bedside commode closer to her rising chair. We will be discharging her with Lasix, increasing Lasix to 40 mg p.o. twice a day from once a day and setting her up with tele medicine support, sending her weights daily to Dr. Price. Of note, she has had previous experience at [facility] facility ([facility]) and is absolutely refusing to go to any other [facility] facility, insisting on going home with home services. She does complain of baseline orthopnea, but is on room air here and insistent that she is leaving today. Documented weight on admission was 119.84 kilograms and on discharge 119.66 kilograms. The patient does not know her dry weight. BNP on admission was 60, very similar to the prior admission of 58. MEDICATIONS ON DISCHARGE: Include: 1. Keflex 500 mg p.o. b.i.d. 10 capsules. 2. Lasix 40 mg p.o. b.i.d. (increased from prior daily). 3. Warfarin 2.5 mg daily. 4. Nystatin topical b.i.d. p.r.n. 5. Mupirocin (Bactroban 2% ointment topical daily). 6. Cholecalciferol 5000 units p.o. weekly. 7. Lyrica 75 mg p.o. t.i.d. 8. Mirapex 2 mg p.o. q.h.s. 9. Potassium chloride 20 mEq p.o. b.i.d. with meals. 10. Paxil 40 mg p.o. q.a.m. 11. Percocet 1 tab p.o. t.i.d. p.r.n. 12. OxyContin 20 mg p.o. q.12 hours. 13. Ativan 0.5 mg p.o. q.h.s. DIET: Heart healthy, unchanged. ACTIVITY LEVEL: No changes at baseline, requiring walker. He is getting PT and OT as an outpatient. FOLLOWUP: Please follow up with Dr. Orlando Price within 3 to 5 days of discharge for evaluation and management of her CHF and bilateral lower extremity erythema. TIME SPENT: Time spent on discharge was 35 minutes. [id number]/[facility] #: [id number] [facility]OSPITALSandy
== END 2017-03-23 16:44 | disposition home or self-care (01) | DRG 602 ==
LOC: ED 12:45 → MEDTELE 16:49
PROVIDERS: ADMIT Internal Medicine; ATTEND Internal Medicine
PROC: 5A09357 Assistance with Respiratory Ventilation, Less than 24 Consecutive Hours, Continuous Positive Airway Pressure (ICD-10-PCS; principal; 2017-03-19)
DX: L03.115 Cellulitis of right lower limb (principal); I50.33 Acute on chronic diastolic (congestive) heart failure; E66.01 Morbid (severe) obesity due to excess calories; E11.610 Type 2 diabetes mellitus with diabetic neuropathic arthropathy; Z68.41 Body mass index [BMI] 40.0-44.9, adult; L03.116 Cellulitis of left lower limb; G89.29 Other chronic pain; F32.9 Major depressive disorder, single episode, unspecified; Z86.718 Personal history of other venous thrombosis and embolism; Z79.01 Long term (current) use of anticoagulants; Z86.711 Personal history of pulmonary embolism; Z85.3 Personal history of malignant neoplasm of breast; Z79.891 Long term (current) use of opiate analgesic; Z79.899 Other long term (current) drug therapy; Z88.8 Allergy status to other drugs, medicaments and biological substances; Z91.048 Other nonmedicinal substance allergy status; F17.210 Nicotine dependence, cigarettes, uncomplicated; E87.6 Hypokalemia; L30.4 Erythema intertrigo; G47.33 Obstructive sleep apnea (adult) (pediatric)
CPT/HCPCS: 36415; 80048; 80053; 81003; 81015; 83605; 83880; 84550; 85025; 85610; 86140; 87040; 87070; 87077; 87205; 87640; 87641; 93970; 94660; A9270-GY; J0692; J0696; J1940; J2270

== ENCOUNTER 2017-05-27 16:11 | Inpatient (IN) | payer MEDICARE ==
[2017-05-27] MEDS ORDERED: NS 0.9% 1000 ML* 2,000 ML IV ONE (16:57)
[2017-05-27] MEDS ORDERED: Ondansetron INJ* 2 MG/ML VIAL IV ONE (16:57)
[2017-05-27] MEDS ORDERED: Pramipexole TAB* 0.5 MG PO ONE (17:07)
[2017-05-27] MEDS ORDERED: NS 0.9% 1000 ML* 1,000 ML IV ONE (17:08)
[2017-05-27 18:03] LABS: ABS Basophils 0 10^3/ul (0-0.2); ABS Eosinophils 0 10^3/ul (0-0.6); ABS Lymphocytes 0.6 10^3/ul (1.0-4.8); ABS Monocytes 0.4 10^3/ul (0-0.8); ABS Neutrophils 4.8 10^3/ul (1.5-7.7); ABS Nucleated RBC 0 10^3/ul; Eosinophil % 0.5 % (0-6); Hematocrit 41 % (35-47); Hemoglobin 13.4 g/dl (12.0-16.0); Lymphocyte % 9.5 % (25-47); Mean Corpuscular HGB Conc 33 g/dl (31-36); Mean Corpuscular Hemoglobin 31 pg (27-31); Mean Corpuscular Volume 94 fL (80-97); Mean Platelet Volume 8 um3 (7.4-10.4); Nucleated Red Blood Cells % 0.1; Platelet Count 187 10^3/ul (150-450); Red Cell Distribution Width 17 % (10.5-15); White Blood Count 5.9 10^3/ul (3.5-10.8)
[2017-05-27 18:14] LABS: EGFR Non-African American 43.1 (>60)
--- NOTE | 2017-05-27 18:23 | RAD ---
INDICATION: Weakness. COMPARISON: Comparison is made with a prior chest x-ray study from February 22, 2017. TECHNIQUE: A portable view of the chest was obtained. FINDINGS: The heart appears mildly enlarged and unchanged from the prior exam. The lungs are underinflated. There is mild prominence of the interstitial markings which are unchanged. No focal infiltrate is seen. IMPRESSION: NO EVIDENCE FOR ACUTE FINDING.
[2017-05-27] MEDS ORDERED: IVPREMIX ONE (18:35)
[2017-05-27] MEDS ORDERED: KCL 10 MEQ/50 ML ONE (18:35)
[2017-05-27] MEDS: KCL 20 MEQ/100 ML IVPREMIX* 20 MEQ/100 ML BAG IV SCH ×2 (18:40→22:41)
--- NOTE | 2017-05-27 20:39 | RAD ---
INDICATION: Abdominal distention and vomiting. COMPARISON: Comparison is made with a prior study from February 22, 2016. TECHNIQUE: A CT scan of the abdomen and pelvis was performed without intravenous or oral contrast. Contiguous axial sections were obtained from the lung bases through the symphysis pubis. Images were reconstructed in the coronal and sagittal planes. The exam is limited due to noncontrast technique and the patient's arms by her sides which causes artifact in the upper abdomen. FINDINGS: There is mild dependent bilateral lower lobe subsegmental atelectasis. No pleural effusion is present. The liver and spleen are normal in size without significant focal abnormality on this noncontrast study. Note is made of multiple gallstones. No inflammatory changes are noted around the gallbladder. The pancreas appears atrophic and otherwise unremarkable. The adrenal glands and kidneys are normal in size. No renal calculi or hydronephrosis is seen. The aorta is normal in caliber with moderate calcific plaque present. No significant enlarged retroperitoneal lymph nodes are seen. The stomach, small and large bowel appear nondistended. The appendix appears within normal limits. There is mild descending and sigmoid diverticulosis without evidence for diverticulitis. The patient is status post hysterectomy. No free intraperitoneal air or fluid is seen. There is diffuse edema along the abdominal wall and pannus. The bones appear osteoporotic. The hips and acetabula appear dysplastic with bilateral erosive changes which appears similar to the prior exam. IMPRESSION: 1. NO EVIDENCE FOR ACUTE FINDING OR CAUSE FOR THE PATIENT'S ABDOMINAL PAIN IS SEEN. 2. CHOLELITHIASIS. 3. EDEMA IN THE ANTERIOR ABDOMINAL WALL AND PANNUS SIMILAR TO THE PRIOR STUDY. 4. BILATERAL DYSPLASTIC HIPS WITH SEVERE EROSIVE CHANGES. 5. LIMITED STUDY.
[2017-05-27] MEDS ORDERED: oxyCODONE/Acetamin 5/325 MG* TAB PO ONE (22:49)
[2017-05-28] MEDS: KCL premix 10MEQ/50 ML x 6 RUNS IV SCH ×4 (01:46→03:04)
[2017-05-28] MEDS: KCL 20 MEQ/100 ML IVPREMIX* 20 MEQ/100 ML BAG IV SCH (01:47)
[2017-05-28] MEDS ORDERED: Ondansetron INJ* 2 MG/ML VIAL IV PRN (03:17)
[2017-05-28] MEDS ORDERED: Mouth Piece, Nicotine* 1 EACH CARTRIDGE INH ONE (03:17)
[2017-05-28] MEDS ORDERED: Nicotine Inhaler* 10 MG AMP INH PRN (03:17)
[2017-05-28] MEDS ORDERED: CMCS: Melatonin (NF) 3 MG TAB PO PRN (03:17)
[2017-05-28] MEDS ORDERED: Albuterol 2.5 MG/3 ML NEB.SOL* (0.083%) INH PRN (03:17)
[2017-05-28] MEDS ORDERED: oxyCODONE/Acetamin 10/325(NF) TAB PO PRN (03:18)
[2017-05-28] MEDS ORDERED: NS 0.9% 1000 ML* 1,000 ML IV SCH (03:30)
[2017-05-28] MEDS ORDERED: oxyCODONE/Acetamin 5/325 MG* TAB PO PRN (03:42)
[2017-05-28] MEDS ORDERED: Metolazone TAB* 5 MG PO SCH (04:00)
--- NOTE | 2017-05-28 04:28 | ED ---
Brady Fraga Angela, scribed for Glen Peters MD on 05/27/17 at 2043 . Progress - Progress Note Progress Note: This pt was signed out by Dr. Black, pending disposition, awaiting CT abdomen/ pelvis. Pt is a 66 y/o female presenting to [facility] c/o abd pain, nausea, and vomiting that began yesterday. Pt states she was in [facility] yesterday and was given [address] Abdomen/Pelvis, as read by radiologist: IMPRESSION: 1. No evidence for acute finding or cause for the patient's abdominal pain is seen. 2. Cholelithiasis. 3. Edema in the anterior abdominal wall and pannus similar to the prior study. 4. 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 5. Limited study. Dr. Peters has reviewed this radiology report. Re-Evaluation - Re-Evaluation Second Eval Re-Evaluation Time: 23:11 Comment: Pt reports she is not feeling well with abd pain. Course/Dx - Diagnoses Provider Diagnoses: Vomiting, Hypokalemia - Provider Notifications Discussed Care Of Patient With: Jake Mathew Time Discussed With Above Provider: 23:29 Instructed by Provider To: Other - I discussed pt care with Dr. Mathew, hospitalist, who reports he will see the pt in the ED. The documentation as recorded by the Brady her Angela accurately reflects the service I personally performed and the decisions made by me, Glen Peters MD.
--- NOTE | 2017-05-28 05:27 | HP ---
H&P (Free Text) History and Physical: PCP: Ysabel Price MD Date/Time: 05/28/2017 0330 CC: fatigue, generalized weakness HPI: Mrs Hutton is a 66YO morbidly obese female HX multiple DVT/PE, diastolic HF , & breast CA presents with onset 05/27/2017 AM of abdominal discomfort associated with N/V and loose stools, but no chest pain, palpitations, black/ blood stool/emesis, F/C, sweats, B/U/F of urine, focal W/N/T, change in speech/ swallow, or other issues. She was seen yesterday at [place] [facility] where her potassium was found to be low and given PO replacement, but does not feel better. PMedHx diastolic HF HTN recurrent DVT/PEs on warfarin remote HX breast CA s/p B mastectomy chronic pain restless leg syndrome depression Ambulatory Orders oxyCODONE/Acetamin 10/325(NF) [Percocet 10/325 (NF)] 1 tab PO TID PRN MDD 3 tabs 02/22/16 Furosemide TAB* [Lasix TAB*] 40 mg PO BID 02/22/17 PARoxetine HCL TAB* [Paxil TAB*] 40 mg PO QAM 02/22/17 Potassium Chlor TAB* [Potassium Chlor TAB 20 MEQ*] 20 meq PO BID 02/22/17 Pramipexole TAB* [Mirapex TAB*] 2 mg PO BEDTIME 02/22/17 Pregabalin CAP(*) [Lyrica CAP(*)] 75 mg PO TID MDD 225 mg 02/22/17 oxyCODONE SR TAB(*) [Oxycontin 20 mg (*)] 20 mg PO Q12HR MDD 40 mg 02/22/17 Nystatin TOP POWDER* 1 applic TOPICAL BID PRN #1 btl 02/25/17 LORazepam TAB(*) [Ativan 0.5 MG TAB (*)] 0.5 mg PO BEDTIME 03/19/17 Warfarin TAB(*) [Coumadin TAB(*)] 1 mg PO DAILY 03/19/17 Cholecalciferol TAB* [Vitamin D TAB*] 50,000 unit PO WEEKLY 05/27/17 Losartan TAB* [Cozaar TAB*] 37.5 mg PO DAILY 05/27/17 Metolazone TAB* [Zaroxolyn TAB*] 5 mg PO MOTUWETHFR 05/27/17 Nystatin SUSPENSION* [Nystatin*] 4 ml PO TID 05/27/17 Allergies MS Iodine [Iodine] Allergy (Verified 02/22/17 12:35) Rash MS Povidone Iodine [From Betadine] Allergy (Verified 02/22/17 12:35) Rash hormones Allergy (Uncoded 02/22/17 12:35) See Comment PE SocHx: 1/2 PPD hand-rolled cigarettes, denies alcohol & recreational drugs; lives alone; full code status FamHx: reviewed, non-contributory to presentation ROS: as above, otherwise reviewed and all were negative vitals: Vital Signs Temp 37.1 C 05/28/17 05:01 Pulse 95 05/28/17 05:01 Resp 18 05/28/17 05:01 BP 135/75 05/28/17 05:01 Pulse Ox 93 05/28/17 05:01 Intake & Output 05/27/17 05/27/17 05/28/17 11:59 23:59 11:59 Intake Total 100 100 Balance 100 100 Weight 104.326 kg Intake: IV Fluids 100 100 Constitutional: NAD, normally developed, morbidly obese elderly white female appearing much older than her reported age HEENM: atraumatic; sclera/conjunctiva: anicteric/clear; hearing: clinically intact; oropharynx: clear, mucosa tacky Neck: soft tissue: no nuchal rigidity; thyroid: normal Pulmonary: scant scattered crackles, no wheeze, fair to good aeration, no accessory muscle use CV: RR/RR, normal S1S2, no carotid bruit, no jugular venous distention, 2+ B DP/ PT, 1+ BLE edema Abdominal: soft, non-distended, non-tender, no rebound/guarding/rigidity, normoactive bowel sounds, no hepatosplenomegaly or masses, no costovertebral angle tenderness Musculoskeletal: general: grossly intact, non-tender with palpation Integumental: purplish venous stasis BLE Psychiatric orientation: AA&O to PPS affect: calm mood: cooperative eye contact: fair content: reliable responses: timely insight: fair Testing: Lab Results 05/27/17 05/27/17 05/27/17 Range/Units 17:20 17:20 17:20 WBC 5.9 (3.5-10.8) 10^3/ul RBC 4.30 (4.0-5.4) 10^6/ul Hgb 13.4 (12.0-16.0) g/dl Hct 41 (35-47) % MCV 94 (80-97) fL MCH 31 (27-31) pg MCHC 33 (31-36) g/dl RDW 17 H (10.5-15) % Plt Count 187 (150-450) 10^3/ul MPV 8 (7.4-10.4) um3 Neut % (Auto) 81.7 (38-83) % Lymph % (Auto) 9.5 L (25-47) % Brantley % (Auto) 7.6 (1-9) % Eos % (Auto) 0.5 (0-6) % Baso % (Auto) 0.7 (0-2) % Absolute Neuts (auto) 4.8 (1.5-7.7) 10^3/ul Absolute Lymphs (auto) 0.6 L (1.0-4.8) 10^3/ul Absolute Monos (auto) 0.4 (0-0.8) 10^3/ul Absolute Eos (auto) 0 (0-0.6) 10^3/ul Absolute Basos (auto) 0 (0-0.2) 10^3/ul Absolute Nucleated RBC 0 10^3/ul Nucleated RBC % 0.1 Sodium 145 (133-145) mmol/L Potassium 2.7 L* (3.5-5.0) mmol/L Chloride 102 (101-111) mmol/L Carbon Dioxide 32 (22-32) mmol/L Anion Gap 11 (2-11) mmol/L BUN 33 H (6-24) mg/dL Creatinine 1.25 H (0.51-0.95) mg/dL Est GFR ( Amer) 55.5 (>60) Est GFR (Non-Af Amer) 43.1 (>60) BUN/Creatinine Ratio 26.4 H (8-20) Glucose 112 H (70-100) mg/dL Lactic Acid 1.4 (0.5-2.0) mmol/L Calcium 10.2 (8.6-10.3) mg/dL Magnesium 2.6 (1.9-2.7) mg/dL Total Bilirubin 0.90 (0.2-1.0) mg/dL AST 15 (13-39) U/L ALT 9 (7-52) U/L Alkaline Phosphatase 90 (34-104) U/L Troponin I 0.03 (<0.04) ng/mL Total Protein 7.1 (6.4-8.9) g/dL Albumin 3.9 (3.2-5.2) g/dL Globulin 3.2 (2-4) g/dL Albumin/Globulin Ratio 1.2 (1-3) TSH 3.05 (0.34-5.60) mcIU/mL ECG, personally reviewed: NSR rate 85, no ischemia, QTc 507 CXR, personally reviewed: IMPRESSION: NO EVIDENCE FOR ACUTE FINDING. CT abd/pel WO, personally reviewed: IMPRESSION: 1. NO EVIDENCE FOR ACUTE FINDING OR CAUSE FOR THE PATIENT'S ABDOMINAL PAIN IS SEEN. 2. CHOLELITHIASIS. 3. EDEMA IN THE ANTERIOR ABDOMINAL WALL AND PANNUS SIMILAR TO THE PRIOR STUDY. 4. BILATERAL DYSPLASTIC HIPS WITH SEVERE EROSIVE CHANGES. 5. LIMITED STUDY. Impression: 66F presenting with fatigue found to be dehydrated with an early CINTHYA & hypoKalemia DIAGNOSIS & PLAN Primary CINTHYA 2nd dehydration : IVFs, monitor hypoKalemia : replace & recheck : given 30mEQ IV in ED N/V : antiemetics : supportive care fatigue/generalized weakness : PT evaluation Secondary diastolic HF : hold furosemide & metolazone for now : strict I&Os : daily weights HTN : hold losartan in setting of dehydration/early CINTHYA recurrent DVT/PEs : continue warfarin remote HX breast CA s/p B mastectomy : no acute issues chronic pain : continue oxycodoneAPAP, oxycodone SR, & pregabalin restless leg syndrome : continue pramipexole depression : continue lorazepam & paroxetine Admission Rational: observation for CINTHYA, dehydration, & hypoKalemia DVTp: SCDs & warfarin Code Status: full HCP: sisterElaine [phone]
[2017-05-28] MEDS: oxyCODONE TAB* 5 MG TAB PO PRN ×3 (06:22→19:59)
[2017-05-28] MEDS: Omeprazole CAP* 20 MG PO SCH (06:22)
[2017-05-28 06:45] LABS: Urine Appearance Clear; Urine Blood Negative (Negative); Urine Color Yellow; Urine Ketones Trace (Negative); Urine Protein Negative (Negative); Urine Specific Gravity 1.011 (1.010-1.030); Urine Urobilinogen Negative (Negative)
[2017-05-28] MEDS: Potassium Chlor TAB* 20 MEQ TAB.ER PO SCH ×2 (07:33→19:59)
[2017-05-28] MEDS: Docusate CAP* 100 MG PO SCH ×2 (07:33→19:59)
[2017-05-28] MEDS: PARoxetine HCL TAB* 40 MG PO SCH (07:33)
[2017-05-28] MEDS: oxyCODONE SR TAB(*) 20 MG TAB.SR PO SCH ×2 (07:34→20:00)
[2017-05-28] MEDS: Pregabalin CAP(*) 25 MG PO SCH ×3 (07:34→20:00)
[2017-05-28 08:17] LABS: Hematocrit 37 % (35-47); Hemoglobin 12.4 g/dl (12.0-16.0); Mean Corpuscular HGB Conc 33 g/dl (31-36); Mean Corpuscular Hemoglobin 31 pg (27-31); Mean Corpuscular Volume 95 fL (80-97); Mean Platelet Volume 8 um3 (7.4-10.4); Platelet Count 156 10^3/ul (150-450); Red Blood Count 3.96 10^6/ul (4.0-5.4); Red Cell Distribution Width 17 % (10.5-15); White Blood Count 5.9 10^3/ul (3.5-10.8)
[2017-05-28 08:39] LABS: EGFR Non-African American 52.2 (>60)
[2017-05-28] MEDS ORDERED: Losartan TAB* 25 MG PO SCH (09:00)
[2017-05-28] MEDS ORDERED: KCL 10 MEQ/50 ML IV ONE (11:00)
[2017-05-28] MEDS ORDERED: IVPREMIX IV ONE (11:00)
--- NOTE | 2017-05-28 11:02 | PN ---
Hospitalist Progress Note Date of Service: 05/28/17 I have seen and examined Ms. Hutton and assume her care today. She was admitted for "dehydration" and hypokalemia, but upon detailed conversation with her, she has gained 12 pounds in the past month. She records her weights daily and reports them to [facility], and they just increased her metolazone to every day 4 days ago. She has JVP elevation with abdominal wall edema, and I believe she is actually in decompensated heart failure and needs diuresis. The hypokalemia can be explained by recent increases in her diuretic. I am repleting her K+, stopping her IVF, and increasing her lasix.
[2017-05-28] MEDS: KCL 10 MEQ/50 ML IVPREMIX* 10 MEQ/50 ML BAG IV SCH ×4 (11:54→18:08)
[2017-05-28] MEDS: Acetaminophen TAB* 325 MG PO PRN (12:05)
[2017-05-28 12:48] LABS: EGFR Non-African American 49.5 (>60)
[2017-05-28] MEDS: Furosemide IV* 10 MG/ML VIAL (40 MG) IV SLOW PU SCH (18:08)
[2017-05-28] MEDS: Pramipexole TAB* 0.5 MG PO SCH (19:58)
[2017-05-29] MEDS: Acetaminophen TAB* 325 MG PO PRN ×4 (00:55→21:43)
[2017-05-29] MEDS: Omeprazole CAP* 20 MG PO SCH (06:01)
[2017-05-29] MEDS: Furosemide IV* 10 MG/ML VIAL (40 MG) IV SLOW PU SCH (08:08)
[2017-05-29] MEDS: oxyCODONE SR TAB(*) 20 MG TAB.SR PO SCH ×2 (08:11→21:45)
[2017-05-29] MEDS: Pregabalin CAP(*) 25 MG PO SCH ×3 (08:25→21:44)
[2017-05-29] MEDS: PARoxetine HCL TAB* 40 MG PO SCH (08:25)
[2017-05-29] MEDS: Docusate CAP* 100 MG PO SCH ×2 (08:25→21:45)
[2017-05-29] MEDS: Potassium Chlor TAB* 20 MEQ TAB.ER PO SCH ×2 (08:25→21:46)
[2017-05-29 08:50] LABS: Hematocrit 35 % (35-47); Hemoglobin 11.6 g/dl (12.0-16.0); Mean Corpuscular HGB Conc 33 g/dl (31-36); Mean Corpuscular Hemoglobin 32 pg (27-31); Mean Corpuscular Volume 96 fL (80-97); Mean Platelet Volume 9 um3 (7.4-10.4); Platelet Count 132 10^3/ul (150-450); Red Blood Count 3.67 10^6/ul (4.0-5.4); Red Cell Distribution Width 17 % (10.5-15); White Blood Count 4.8 10^3/ul (3.5-10.8)
[2017-05-29 08:51] LABS: INR 2.89 (0.77-1.02)
[2017-05-29] MEDS ORDERED: NS 0.9% 500 ML* 500 ML IV ONE (09:10)
--- NOTE | 2017-05-29 09:12 | PN ---
Subjective Interval History: pain in right ankle and thigh. very tired BP down, MAP to 58. diuretics stopped, 500cc bolus with improved pressures. was never given a "dry weight" with PCP. has barely urinated since yesterday. bladder scan with 70cc. later ambulated on RA. Objective Active Medications: Acetaminophen (Tylenol Tab*) 650 mg PO Q6H PRN PRN Reason: FEVER/PAIN Last Admin: 05/29/17 06:01 Dose: 650 mg Albuterol (Ventolin 2.5 Mg/3 Ml Neb.Grace*) 2.5 mg INH Q2H PRN PRN Reason: SOB/WHEEZING Docusate Sodium (Colace Cap*) 200 mg PO BID [facility] Last Admin: 05/29/17 08:25 Dose: 200 mg Melatonin (Melatonin (Nf)) 3 mg PO BEDTIME PRN; Protocol PRN Reason: Sleep Nicotine (Nicotine Inhaler*) 10 mg INH Q2H PRN PRN Reason: CRAVING Omeprazole (Prilosec Cap*) 20 mg PO DAILY@0600 [facility] Last Admin: 05/29/17 06:01 Dose: 20 mg Ondansetron HCl (Zofran Inj*) 4 mg IV Q6H PRN PRN Reason: NAUSEA Oxycodone HCl (Oxycontin(*)) 20 mg PO Q12HR [facility] Last Admin: 05/29/17 08:11 Dose: Not Given Oxycodone HCl (Roxycodone Tab*) 5 mg PO TID PRN PRN Reason: PAIN Last Admin: 05/28/17 19:59 Dose: 5 mg Paroxetine HCl (Paxil Tab*) 40 mg PO QAM [facility] Last Admin: 05/29/17 08:25 Dose: 40 mg Potassium Chloride (Klor Con Er Tab*) 20 meq PO BID [facility] Last Admin: 05/29/17 08:25 Dose: 20 meq Pramipexole Dihydrochloride (Mirapex Tab*) 2 mg PO BEDTIME [facility] Last Admin: 05/28/17 19:58 Dose: 2 mg Pregabalin (Lyrica Cap(*)) 75 mg PO TID [facility] Last Admin: 05/29/17 08:25 Dose: 75 mg Warfarin Sodium (Coumadin Tab(*)) 1 mg PO 1700 [facility] PRN Reason: Protocol Vital Signs - 8 hr 05/29/17 05/29/17 05/29/17 02:38 07:36 08:23 Temperature 98.5 F 98.0 F Pulse Rate 74 71 Respiratory 16 16 Rate Blood Pressure 92/47 77/48 76/50 (mmHg) O2 Sat by Pulse 92 99 Oximetry 05/29/17 08:25 Temperature Pulse Rate Respiratory 16 Rate Blood Pressure (mmHg) O2 Sat by Pulse Oximetry Oxygen Devices in Use Now: Nasal Cannula Appearance: NAD, chronically ill appearing. Respiratory: Symmetrical Chest Expansion and Respiratory Effort, Clear to Auscultation Cardiovascular: - - JVD angle mandible Abdominal: NL Sounds; No Tenderness; No Distention, No Hepatosplenomegaly Extremities: No Edema Skin: - - hyperpigmentation rigtht lower calf/ankle. not warm Neurological: Alert and Oriented x 3, NL Muscle Strength and Tone Nutrition: Taking PO's Result Diagrams: 05/29/17 08:19 05/29/17 08:19 Additional Lab and Data: Laboratory Results - last 24 hr 05/29/17 05/29/17 05/29/17 08:19 08:19 08:19 WBC 4.8 RBC 3.67 L Hgb 11.6 L Hct 35 MCV 96 MCH 32 H MCHC 33 RDW 17 H Plt Count 132 L MPV 9 INR (Anticoag Therapy) 2.89 H Sodium 143 Potassium 3.8 Chloride 107 Carbon Dioxide 31 Anion Gap 5 BUN 25 H Creatinine 1.35 H Est GFR ( Amer) 50.8 Est GFR (Non-Af Amer) 39.5 BUN/Creatinine Ratio 18.5 Glucose 72 Calcium 9.1 Microbiology and Other Data: Microbiology 05/28/17 06:29 Urine Urine Culture - Final Strep Group B 05/28/17 04:50 Nasopharyngeal Influenza Types A,B Antigen ([facility]) - Final Specimen received for Influenza A/B Molecular testing Assess/Plan/Problems-Billing Assessment: 66 yo female PMH diastolic CHF, MO, DVT/PE on coumading, breast cancer p/w hypokalemia. - Patient Problems (1) Diastolic heart failure Current Visit: No Status: Acute Code(s): I50.30 - UNSPECIFIED DIASTOLIC ( CONGESTIVE) HEART FAILURE SNOMED Code(s): 093097482 Comment: Not clear that she is in acute exacerbation despite what looks like a JVD to [facility]. Her discharge weight 03/23 was 119kg, currently 108.9. LE edema has markedly improved since then. Getting hypotensive seems like every 3rd day on the metolazone. Hypotensive 2/3 needed 500cc bolus back. on room air. (2) Depression Current Visit: No Status: Chronic Priority: Medium Code(s): F32.9 - MAJOR DEPRESSIVE DISORDER, SINGLE EPISODE, UNSPECIFIED SNOMED Code(s): 48396357 Comment: Continue home paroxetine (3) History of pulmonary embolus (PE) Current Visit: No Status: Chronic Priority: Medium Code(s): Z86.711 - PERSONAL HISTORY OF PULMONARY EMBOLISM SNOMED Code(s): 923336659 Comment: INR daily (was 2.89), restart but reduced dose Warfarin to 2mg from home 2.5mg Status and Disposition: medicine, changed to inpatient. likely d/c 2/. Attending: Kaushik Godoy
[2017-05-29 09:52] LABS: EGFR Non-African American 39.5 (>60)
[2017-05-29] MEDS ORDERED: Warfarin TAB(*) 2 MG PO SCH (17:00)
[2017-05-29] MEDS ORDERED: Warfarin TAB(*) 1 MG PO SCH (17:00)
[2017-05-29] MEDS: Pramipexole TAB* 0.5 MG PO SCH (21:44)
[2017-05-29] MEDS: oxyCODONE TAB* 5 MG TAB PO PRN (21:45)
[2017-05-30] MEDS: Acetaminophen TAB* 325 MG PO PRN (04:12)
[2017-05-30] MEDS: Omeprazole CAP* 20 MG PO SCH (05:40)
[2017-05-30 06:31] LABS: INR 3.04 (0.77-1.02)
[2017-05-30] MEDS: Pregabalin CAP(*) 25 MG PO SCH (08:28)
[2017-05-30] MEDS: oxyCODONE SR TAB(*) 20 MG TAB.SR PO SCH (08:28)
[2017-05-30] MEDS: Docusate CAP* 100 MG PO SCH (08:28)
[2017-05-30] MEDS: Potassium Chlor TAB* 20 MEQ TAB.ER PO SCH (08:28)
[2017-05-30] MEDS: PARoxetine HCL TAB* 40 MG PO SCH (08:28)
[2017-05-30 10:21] VITALS: BP 98/56
--- NOTE | 2017-05-30 12:55 | ED ---
Turner Fraga Stephanie, scribed for Madhu Black MD on 05/27/17 at 1737 . Influenza-Like Illness - HPI Summary HPI Summary: The pt is a 66 y/o F presenting to the ED with c/o N/V that began yesterday. Symptoms include abd pain, decreased appetite and chills. The pt denies cough, fever, urinary frequency, hematuria, dysuria, diaphoresis and CP. The pt reports having loose BM throughout the night. The pt denies a hx of bowel obstruction. - History of Current Complaint Chief Complaint: EDFluSymptoms Time Seen by Provider: 05/27/17 16:55 Hx Obtained From: Patient Onset/Duration: Lasting Days - 1, Still Present - Allergy/Home Medications Allergies/Adverse Reactions: Allergies Allergy/AdvReac Type Severity Reaction Status Date / Time MS Iodine [Iodine] Allergy Rash Verified 02/22/17 12:35 MS Povidone Iodine Allergy Rash Verified 02/22/17 12:35 [From Betadine] hormones Allergy See Comment Uncoded 02/22/17 12:35 Home Medications: Home Medications Cholecalciferol TAB* [Vitamin D TAB*] 50,000 unit PO WEEKLY 05/27/17 [History Confirmed 05/27/17] Losartan TAB* [Cozaar TAB*] 37.5 mg PO DAILY 05/27/17 [History Confirmed ] Metolazone TAB* [Zaroxolyn TAB*] 5 mg PO MOTUWETHFR 05/27/17 [History Confirmed 05/27/17] Nystatin SUSPENSION* [Nystatin*] 4 ml PO TID 05/27/17 [History Confirmed ] PMH/Surg Hx/FS Hx/Imm Hx Cardiovascular History: Reports: Hx Deep Vein Thrombosis, Hx Hypertension Respiratory History: Reports: Hx Chronic Bronchitis, Hx Pulmonary Embolism - 2X Musculoskeletal History: Reports: Hx Back Problems Sensory History: Reports: Hx Contacts or Glasses Denies: Hx Hearing Aid Opthamlomology History: Reports: Hx Contacts or Glasses Psychiatric History: Reports: Hx Anxiety, Hx Eating Disorder, Hx Depression - Cancer History Cancer Type, Location and Year: breast ca Hx Chemotherapy: - unk Hx Radiation Therapy: - unk - Surgical History Surgery Procedure, Year, and Place: hysterectomy, "chest wall replacement," bilateral mastectomy - Immunization History Date of Influenza Vaccine: 01/2017 Immunizations Up to Date: Yes Infectious Disease History: No Infectious Disease History: Denies: Traveled Outside the [place] in Last 30 Days - Family History Known Family History: Positive: Blood Disorder - myelodysplasia (father) - Social History Occupation: Retired Lives: Alone Alcohol Use: Rare Hx Substance Use: No Substance Use Type: Reports: None Smoking Status (MU): Light Every Day Tobacco Smoker Type: Cigarettes Amount Used/How Often: 5 cigarettes per day Have You Smoked in the Last Year: Yes Review of Systems Positive: Chills. Negative: Fever Negative: Erythema Negative: Sore Throat Negative: Chest Pain Negative: Shortness Of Breath, Cough Positive: Abdominal Pain, Vomiting, Nausea, Other - decreased appetite. Negative: Diarrhea Negative: dysuria, hematuria Negative: Rash Neurological: Other - Negative: dizziness All Other Systems Reviewed And Are Negative: Yes Physical Exam - Summary Physical Exam Summary: Constitutional: Well-developed, Well-nourished, Alert. (-) Distressed Skin: Warm, Dry HENT: Normocephalic; Atraumatic, mucus membranes dry Eyes: Conjunctiva normal Neck: Musculoskeletal ROM normal neck. (-) JVD, (-) Stridor, (-) Tracheal deviation Cardio: Rhythm regular, rate normal, Heart sounds normal; Intact distal pulses; The pedal pulses are 2+ and symmetric. Radial pulses are 2+ and symmetric. (-) Murmur Pulmonary/Chest wall: Effort normal. (-) Respiratory distress, (-) Wheezes, (-) Rales Abd: mildly distended, (-) Tenderness, (-) Distension, (-) Guarding, (-) Rebound , obese Musculoskeletal: (-) Edema Lymph: (-) Cervical adenopathy Neuro: Alert, Oriented x3 Psych: Mood and affect Normal Triage Information Reviewed: Yes Vital Signs On Initial Exam: Initial Vitals Temp Pulse Resp BP Pulse Ox 98.7 F 87 19 131/77 96 05/27/17 16:19 05/27/17 16:19 05/27/17 16:19 05/27/17 16:19 05/27/17 16:19 Vital Signs Reviewed: Yes Diagnostics - Vital Signs Vital Signs Temp Pulse Resp BP Pulse Ox 05/27/17 16:19 98.7 F 87 19 131/77 96 - Laboratory Result Diagrams: 05/27/17 17:20 05/27/17 17:20 Lab Statement: Any lab studies that have been ordered have been reviewed, and results considered in the medical decision making process. - Radiology CXR Xray Interpretation: No Acute Changes Radiology Interpretation Completed By: Radiologist - NO EVIDENCE FOR ACUTE FINDING. - EKG 17:12 Cardiac Rate: NL EKG Rhythm: Sinus Rhythm - 85 BPM EKG Interpretation: No STEMI Flu Symptom Course/Dx - Course Course Of Treatment: ED physician presented the pt for admission to Dr. Magana. Hospital requests that ED physician reviews CT before admission. The pt will be a sign out to Dr. Peters. - Diagnoses Provider Diagnoses: Vomiting, Hypokalemia Critical Care Time: 30-74 min - 35 min Discharge - Discharge Plan Condition: Stable Disposition: OTHER Discharge Disposition Comment: Signed out to Dr. Peters at shift change. Referrals: Dee BANEGAS,Orlando Todd [Primary Care Provider] - The documentation as recorded by the Turner her Stephanie accurately reflects the service I personally performed and the decisions made by , Madhu Black MD.
--- NOTE | 2017-05-31 11:22 | DS ---
DISCHARGE SUMMARY: DATE OF ADMISSION: 05/28/17 DATE OF DISCHARGE: 05/30/17 ADMITTING PROVIDER: Jake Mathew MD ATTENDING PHYSICIAN: Kaushik Godoy MD and Jeane Lozada DO PRIMARY CARE PHYSICIAN: Dr. Price. CHIEF COMPLAINT: Fatigue, generalized weakness. PRINCIPAL DIAGNOSIS: Hypokalemia in the setting of increased outpatient diuretics for diastolic heart failure. HISTORY OF PRESENT ILLNESS AND HOSPITAL COURSE: Mrs. 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 Of note, she had been seen in the [facility] a day prior, her potassium was found to be low and was given p.o. replacement potassium. It is unclear what level that was. She had a CT of the abdomen and pelvis without contrast in [place] [facility] which showed no evidence for acute findings to cause the patient's abdominal pain; cholelithiasis, some edema in the anterior abdominal wall and pannus similar to prior study. 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 She was found to have a potassium of 2.7, her creatinine was up slightly to 1.25. She was admitted for hypokalemia and CINTHYA thought secondary to dehydration also in the setting of recently increased diuretic for her diastolic heart failure exacerbation to include 40 mg p.o. b.i.d., which has been stable but now increasing metolazone 5 mg daily. She had followed up with Dr. Price, her primary care doctor and additionally a supervisor home economics who she does not remember the name of. The patient's volume status is somewhat difficult given her large morbidly obese abdomen with thick pannus; however, this provider did take care of the patient on discharge back in February 2017 when she presented with cellulitis and diastolic heart failure exacerbation at that time and initial weights at that time had been on discharge 119.7 kg, 264 pounds. The patient actually meticulously had been recording her weights at home since May 05 when they had been 217 pounds but mostly in the mid 220s to low 230s. On presentation here, she was actually 104.3 kg (229 pounds) . She initially got some IV fluids and then some diuretics on hospital day #2 when she was thought to be volume overloaded; however, her pressures fell dramatically where she had been in the 130s to 140s on admission down to systolics 76/50. She got additional 500 cc bolus which improved her pressures to the high 90s over mid 60s where she stayed in this range throughout the duration of her hospital stay. It seems like her dry weight is potentially in the mid 230s and she is not hypoxic or short of breath at this level. Weight on discharge 109 (240 pounds). It was recommended that she continue the Lasix 40 mg p.o. daily but hold off on any metolazone 5 mg daily. Of note, she had been getting hypotensive as an outpatient with systolics in the 90s and had been holding her metolazone approximately every 3rd day as an outpatient. Given the hypotension, hypokalemia, and lack of symptoms of the diastolic heart failure, she is recommended to follow this course and will follow up with Dr. Price as an outpatient. Her Coumadin has been now restarted. Initially, she had been having elevated INRs at home in the 4s. Repeat on hospital day #3 was 2.9 and then 3.1. She is recommended to decrease to 1 mg daily to be started on May 31 and again follow with Dr. Price. She will continue her potassium supplementation. DISCHARGE MEDICATIONS: Include: 1. Warfarin 1 mg p.o. daily (changed). 2. Lyrica 75 mg p.o. t.i.d. 3. Mirapex 2 mg p.o. at bedtime. 4. Potassium chloride 20 mEq p.o. b.i.d. 5. Paxil 40 mg p.o. q.a.m. 6. Percocet 1 tab p.o. t.i.d. 7. Oxycodone sustained release 20 mg p.o. q. 12 hours. 8. Nystatin topical powder p.r.n. 9. Ativan 0.5 mg p.o. at bedtime. 10. Furosemide 40 mg p.o. b.i.d. 11. Cholecalciferol 50,000 units p.o. weekly. Of note, her losartan 37.5 mg p.o. daily was stopped given CINTHYA and low blood pressures. She was advised to continue to take her blood pressures at home. DISCHARGE DIET: Heart healthy. ACTIVITY LEVEL: No restrictions. He uses a walker at baseline. FOLLOWUP: The patient was instructed to follow up with Dr. Price within 5 days of discharge, recording her blood pressures, and home INR checks. She also desires to seek a different supervisor home economics as an outpatient as she was not happy with her previous interactions with the last one, which she cannot recall. TIME SPENT: On discharge, 40 minutes. [id number]/[facility] #: [id number] THANIA
== END 2017-05-30 14:50 | disposition home or self-care (01) | DRG 683 ==
LOC: ED 16:11 → MED 05-28 03:30 → OBSVTOIN 05-29 16:41
PROVIDERS: ADMIT Hospitalist; ATTEND Internal Medicine
DX: N17.9 Acute kidney failure, unspecified (principal); I50.32 Chronic diastolic (congestive) heart failure; I11.0 Hypertensive heart disease with heart failure; I95.9 Hypotension, unspecified; E87.5 Hyperkalemia; E66.01 Morbid (severe) obesity due to excess calories; Z68.42 Body mass index [BMI] 45.0-49.9, adult; E86.0 Dehydration; G89.29 Other chronic pain; G25.81 Restless legs syndrome; F32.9 Major depressive disorder, single episode, unspecified; F17.210 Nicotine dependence, cigarettes, uncomplicated; Z86.718 Personal history of other venous thrombosis and embolism; Z79.01 Long term (current) use of anticoagulants; Z86.711 Personal history of pulmonary embolism; Z85.3 Personal history of malignant neoplasm of breast; Z79.1 Long term (current) use of non-steroidal anti-inflammatories (NSAID); Z79.891 Long term (current) use of opiate analgesic; Z79.899 Other long term (current) drug therapy; Z88.8 Allergy status to other drugs, medicaments and biological substances; Z91.048 Other nonmedicinal substance allergy status
CPT/HCPCS: 36415; 71045; 74176; 80048; 80053; 81003; 81015; 83605; 83735; 84443; 84484; 85025; 85027; 85610; 87077; 87086; 87502; 93005; 94760; 96365; 96366; 99283; 99406; A9270-GY; G0378; G8978-GP-CK; G8979-GP-CI; G8990-GO-CK; G8991-GO-CI; G8992-GO-CI; J1940; J2405; J3480

== ENCOUNTER 2017-12-08 15:36 | Inpatient (IN) | payer MEDICARE ==
[2017-12-08] MEDS ORDERED: NS 0.9% 500 ML* 500 ML IV ONE ×2 (18:23→19:09)
--- NOTE | 2017-12-08 18:49 | HP ---
H&P (Free Text) History and Physical: History and Physical -- Critical Care HPI: 67y F w/pmhx of morbid obesity, multiple DVT/Pes on warfarin, LV diastolic heart failure, breast Ca, Depression, CKD4 (baseline low 1s); prior hospitalizations secondary to CHF exacerbation and cellulitis of LE; now presents to [facility] for complaints of right leg infection and drainage. She states she hurt her right leg 1 week ago, kept it dressed and with topical antibiotic coverage. Then two days ago it started draining more foul smelling and green material. She went to [facility]. She was being treated for cellulitus with IV zosyn. She developed hypotension to 60s today in the morning, responded to fluids initially. Temp was 94.6, tachycardia to 120s, increased shortness of breath+ and oxygen requirements, sats dropped to 88% on RA. Documented chest pain. She was also more confused as per records. She had a duplex of right lower ext which was negative for DVT. A CTA of chest was not performed due to Acute renal insufficiency with Cr 2.1. Her WBC was 6, negative LA, INR 2.2 She was deemed in more critical condition and transferred to [facility] [place] higher level of care. She is now in ICU, awake/alert. Able to give history, sometimes seems a bit confused as to time period but able to orient x3. Current vitals RR 20s, on 2 L NC sat 97%, HR 100s sinus, BP 70/40s MAP 50s, temp 98.6. Denies SOB now but did have some yesterday as per her. No chest pain. Chills+. No n/v/abd pain. LE swelling on and off. Takes Coumadin at home. Meds at [facility] vanco 1 gm q36h, zosyn 3.375 q8h, oxycodone, pregabalin 75 q6h, lovenox 120mg q12h SC, paroxetine 40mg qdaily, CXR 12/08 clear lungs, no congestion, cxr 12/07 mild pulm congestion ROS: negative except for pertinent positives mentioned above. PMHx/PSHx: morbid obesity, multiple DVT/Pes on warfarin, LV diastolic heart failure, breast Ca, Depression, bilateral dysplastic hips/erosive changes Family History: non-contributory Social History: Alcohol-none, Smoking-1/2 ppd, Drug use-none Allergies: Allergies Allergy/AdvReac Type Severity Reaction Status Date / Time iodine Allergy Rash Verified 12/08/17 18:34 povidone-iodine Allergy Rash Verified 12/08/17 18:34 hormones Allergy See Comment Uncoded 02/22/17 12:35 Home Medications: kcl 20meq daily, Lasix 40mg daily, lyrica 75mg qid, warfarin 1.5mg po qhs, Percocet 10/325 q6h prn pain, paroxetine 40mg daily, metolazone 5mg qud, losartan 12.5mg daily, Ativan 0.5mg pot id prn anxiety, oxycontin 20mg bid Tele: sinus tachy Vitals: Vital Signs Temp 98.5 F 12/08/17 17:30 Pulse 107 12/08/17 18:15 Resp 19 12/08/17 18:15 BP 75/58 12/08/17 18:15 Pulse Ox 96 12/08/17 18:15 Intake & Output 12/07/17 12/08/17 12/08/17 18:59 06:59 18:59 Weight 120.9 kg O2/Vent: 2 L NC Infusions: NS bolus Current Medications: Sodium Chloride (Ns 0.9% 500 Ml*) 500 mls @ 1,000 mls/hr IV ONCE ONE Stop: 12/08/17 18:52 Piperacillin Sod/Tazobactam (Sod 3.375 gm/ Sodium Chloride) 100 mls @ 25 mls/ hr IVPB Q8H [facility] Oxycodone/Acetaminophen (Percocet 5/325 Tab*) 1 tab PO Q6H PRN PRN Reason: PAIN Paroxetine HCl (Paxil Tab*) 40 mg PO DAILY [facility] Pharmacy Consult (Vancomycin Per Pharmacy*) 1 note FOLLOW UP .VANC PER PHARMACY [facility] Pharmacy Consult (Zosyn Per Pharmacy*) 1 note FOLLOW UP .ZOSYN PER PHARMACY [facility] Pramipexole Dihydrochloride (Mirapex Tab*) 2 mg PO QPM [facility] Pregabalin (Lyrica Cap(*)) 75 mg PO TID [facility] Physical Exam: General: awake, alert, no distress, no diaphoresis Head: normocephalic, atraumatic HEENT: no pallor, no icterus, moist mucous membranes Neck: soft, supple, no jvd, no stridor CVS: tachy, regular, no murmur Resp: bilateral air entry, no rhales, no wheeze, no rhonchi, no acc muscle use Abdomen: soft, obese, nontender, nondistended, chronic skin changes+, BS+; areas of redness under abd panus Ext: pulses+, warm; bilateral LE edema+; Right leg 3x3cm wound, dry appearing with scab, erythema+, no found drainage noted now, no crepitus noted Skin: intact, no breakdown, no dryness Neuro: awake, alert, orientedx3, moving all extremities, no gross focal deficit Labs: pending Imaging: pending Assessment: 67y F w/pmhx of morbid obesity, multiple DVT/PEs on warfarin, LV diastolic heart failure, breast Ca, Depression, CKD4 (baseline low 1s); prior hospitalizations secondary to CHF exacerbation and cellulitis of LE; now presents to [facility] for complaints of right leg infection and drainage. She states she hurt her right leg 1 week ago, kept it dressed and with topical antibiotic coverage. Then two days ago it started draining more foul smelling and green material. She went to [facility]. She was being treated for cellulitus with IV zosyn. She developed hypotension to 60s today in the morning, responded to fluids initially. Temp was 94.6, tachycardia to 120s, increased shortness of breath+ and oxygen requirements, sats dropped to 88% on RA. Documented chest pain. She was also more confused as per records. She had a duplex of right lower ext which was negative for DVT. Transferred to [facility] for higher level care. In ICU, on arrival, tachycardic, BP 70s, on 2 L NC, sats 97%, RR 20s. -Severe Sepsis -Right leg cellulitus -Acute hypoxic respiratory failure -?pulm congestion -CINTHYA on CKD4 h/o DVT/PE, on warfarin Diastolic CHF, stable Plan: Neuro- awake, alert. tired though. delirium prec. asp prec. CVS- hypotensive on arrival 70s, responding to IVF bolus, 500cc NS, repeat 500cc now x1. LE edema+, upper ext skin dry, lungs clear. Check BNP. IVF as needed. will hold full sepsis protocl IVF bolus given h/o recurrent CHF exaccerbation. check LA/procal. IV abx. would change lovenox to IV heparin given renal function, check INR first now. Resp- on 2 L NC, no distress now. CHeck CXR. IVF as needed. no cough. sputum culture if able. bronchodilators prn. ID- hypothermic, wbc normal. sepsis criteria+. Right leg cellulitus+. Started on Zosyn IV q8h (day#2), Vanco (day#1). check vanco random level now first. will f/u with miller about blood cultures. GI- cardiac diet. GI proph as needed. Renal- CINTHYA on CKD4; check CMP now. IVF as needed. george+ on arrival, check urinalysis. Heme- anemia baseline, 9s. check cbc now. will change to IV heparin for AC, check INR, will bridge back to warfarin. Endo- check hba1c and tsh. fingerstick achs. Musculsk- pressure ulcer prophylaxis. Bedrest. Wounds- none Nutrition- cardiac diet DVT prophylaxis: IV heparin GI prophylaxis: pepcid Central Line: no Arterial Line: no George Cathetor: yes, present on admission; keep for strict I/O Disposition: ICU Code Status: full code Total Critical Care time is 45 minutes, excluding procedures/teaching Vishnu Parsons MD Private Branch Exchange Service Adviser (Electronically Signed)
[2017-12-08] MEDS ORDERED: Vancomycin per Pharmacy* NOTE FOLLOW UP SCH (19:00)
[2017-12-08] MEDS ORDERED: Zosyn per Pharmacy* NOTE FOLLOW UP SCH (19:00)
[2017-12-08] MEDS ORDERED: NS 0.9% 1000 ML* 1,000 ML IV ONE (19:03)
--- NOTE | 2017-12-08 19:06 | RAD ---
INDICATION: Hypoxia COMPARISON: May 27, 2017 TECHNIQUE: An AP portable view obtained at 1845 hours is submitted. FINDINGS: Bones/Soft Tissues: There are no acute bony findings. Cardiomediastinal: The heart is normal in size. Central pulmonary vessels are prominent. Lungs: There are no acute infiltrates. There is diffuse interstitial prominence with vascular crowding due to the expiratory nature of the examination. Pleura: Small bilateral pleural effusions are suspected. Other: None IMPRESSION: SUSPECT MILD INTERSTITIAL CONGESTION
--- NOTE | 2017-12-08 19:07 | PN ---
Sepsis Event Evaluation Date of Evaluation: 12/08/17 Time of Evaluation: 19:00 Current Stage of Sepsis: Severe Sepsis Vital Signs - Last 12 Hours: Vital Signs - 12 hr Temp Pulse Resp BP Pulse Ox 12/08/17 18:15 107 19 75/58 96 12/08/17 18:05 109 9 86/57 98 12/08/17 18:01 108 30 96 12/08/17 18:00 107 16 96 12/08/17 17:56 112 18 73/34 96 12/08/17 17:54 110 31 79/55 95 12/08/17 17:49 111 27 73/48 95 12/08/17 17:46 110 16 216/189 94 12/08/17 17:43 110 18 200/165 96 12/08/17 17:35 16 12/08/17 17:30 98.5 F 105 8 191/167 95 12/08/17 17:27 16 - Cardiopulmonary Exam Capillary Refill: Immediate Respiratory: Symmetrical Chest Expansion and Respiratory Effort, Clear to Auscultation Cardiovascular: NL Sounds; No Murmurs; No JVD, - - edema+, tachycardic+ - Peripheral Pulse Exam Radial Pulses: Bilateral Normal - Skin Exam Skin Exam: Normal Turgor - dry skin upper ext, [place] Coma Scale Best Eye Response: 4 - Spontaneous Best Motor Response: 6 - Obeys Commands Best Verbal Response: 5 - Oriented Coma Scale Total: 15 Assess/Plan/Problems-Billing Assessment:
[2017-12-08] MEDS: Norepinephrine 16MCG/ML IVPRE* 4,000 MCG/250 ML BAG IV SCH (19:50)
--- NOTE | 2017-12-08 19:55 | PN ---
Progress Note - Progress Note Date of Service: 12/08/17 Note: Central Line Procedure Note Indication: venous access Diagnosis: severe sepsis, cellulitus Performed by: Vishnu Parsons MD Consent: Informed ; placed in bedside chart Risks of procedure were explained if possible, all risks of pain/discomfort, bleeding, infection, PTX, Hemotx, need for chest tube, air/wire embolism, vessel injury, , and failed procedure disclosed and understanding verbalized [place] Protocol: Time-out was performed and the correct patient and site were verified - Prior labs/history was reviewed prior to procedure - Full sterile precautions with chlorhexidine/full drapes/gowns/gloves utilized - Right Internal jugular vein visualized with ultrasound - Vessel accessed under ultrasound guidance with return of nonpulsatile blood. A guidewire was passed into vessel and confirmed in vessel with ultrasound. 1 attempt was made to access vessel. Vessel was dilated and cathetor was passed over wire into vessel. All ports demonstrated good blood return and flushed. Catheter was sutured to site and dressing applied. Adequate hemostasis was achieved EBL <5 cc No immediate complications noted, patient tolerated procedure well. Post Procedure CXR: Pending Vishnu Parsons MD Risk Management Director (Electronically Signed)
--- NOTE | 2017-12-08 19:57 | PN ---
Progress Note - Progress Note Date of Service: 12/08/17 Note: patient has pulm congestion on CXR, will limit IVF bolus as per sepsis protocol given CHF exaccerbation central line placed IV pressors levophed as needed to maintian SBP>90 and MAP>65 blood cultures x1
[2017-12-08 20:14] LABS: INR 3.42 (0.77-1.02)
[2017-12-08 20:26] LABS: Hematocrit 15 % (35-47); Mean Corpuscular HGB Conc 32 g/dl (31-36); Mean Corpuscular Hemoglobin 30 pg (27-31); Mean Corpuscular Volume 93 fL (80-97); Mean Platelet Volume 9.9 um3 (7.4-10.4); Platelet Count 148 10^3/ul (150-450); Red Blood Count 1.63 10^6/ul (4.00-5.40); Red Cell Distribution Width 21 % (10.5-15); White Blood Count 14.3 10^3/ul (3.5-10.8)
[2017-12-08 21:09] LABS: ABS Basophils 0 10^3/ul (0-0.2); ABS Eosinophils 0.1 10^3/ul (0-0.6); ABS Lymphocytes 0.3 10^3/ul (1.0-4.8); ABS Monocytes 0.8 10^3/ul (0-0.8); ABS Nucleated RBC 0 10^3/ul; Eosinophil % 0.7 % (0-6); Lymphocyte % 2.2 % (25-47); Nucleated Red Blood Cells % 0
[2017-12-08 22:10] LABS: Hemoglobin 4.8 g/dl (12.0-16.0)
[2017-12-08] MEDS: Furosemide IV* 100 MG in NS 0.9% 100 ML* 90 ML IV SCH (22:10)
[2017-12-08] MEDS: Piperacillin/Tazobac ADVAN(*) 3.375 GM in NS 0.9% 100 ML* 100 ML IVPB SCH (22:29)
[2017-12-08] MEDS: Pregabalin CAP(*) 25 MG PO SCH (22:29)
[2017-12-08] MEDS: Pramipexole TAB* 0.5 MG PO SCH (22:30)
[2017-12-09] MEDS: Norepinephrine 16MCG/ML IVPRE* 4,000 MCG/250 ML BAG IV SCH (02:22)
[2017-12-09 02:57] LABS: Hematocrit 38 % (35-47); Hemoglobin 12.4 g/dl (12.0-16.0)
[2017-12-09 03:36] LABS: Mean Corpuscular HGB Conc 33 g/dl (31-36); Mean Corpuscular Hemoglobin 30 pg (27-31); Mean Corpuscular Volume 92 fL (80-97); Mean Platelet Volume 9.9 um3 (7.4-10.4); Platelet Count 165 10^3/ul (150-450); Red Blood Count 4.16 10^6/ul (4.00-5.40); Red Cell Distribution Width 20 % (10.5-15); White Blood Count 13.8 10^3/ul (3.5-10.8)
[2017-12-09 05:56] LABS: Hematocrit 37 % (35-47); Hemoglobin 12.2 g/dl (12.0-16.0); Mean Corpuscular HGB Conc 33 g/dl (31-36); Mean Corpuscular Hemoglobin 30 pg (27-31); Mean Corpuscular Volume 91 fL (80-97); Mean Platelet Volume 9.3 um3 (7.4-10.4); Platelet Count 153 10^3/ul (150-450); Red Blood Count 4.06 10^6/ul (4.00-5.40); Red Cell Distribution Width 20 % (10.5-15); White Blood Count 11.1 10^3/ul (3.5-10.8)
[2017-12-09] MEDS ORDERED: Vancomycin Random Level* NOTE FOLLOW UP ONE (06:00)
[2017-12-09 06:02] LABS: INR 3.24 (0.77-1.02)
[2017-12-09 06:20] LABS: EGFR Non-African American 32.6 (>60)
[2017-12-09] MEDS: Piperacillin/Tazobac ADVAN(*) 3.375 GM in NS 0.9% 100 ML* 100 ML IVPB SCH ×3 (06:33→20:49)
[2017-12-09] MEDS: Furosemide IV* 100 MG in NS 0.9% 100 ML* 90 ML IV SCH ×2 (06:35→20:15)
--- NOTE | 2017-12-09 07:01 | RAD ---
INDICATION: Central line placement. COMPARISON: Comparison is made with a prior study from approximately 2 hours earlier. TECHNIQUE: A portable view of the chest was obtained. FINDINGS: There is a central venous catheter entering from the right jugular approach. The catheter tip projects over the right atrium. The heart appears mildly enlarged and unchanged. There is mild prominence of the interstitial markings which appear unchanged. No pleural effusion is seen. There is no evidence for pneumothorax. IMPRESSION: 1. STATUS POST CENTRAL VENOUS CATHETER PLACEMENT, NO EVIDENCE FOR PNEUMOTHORAX. 2. POSSIBLE MILD INTERSTITIAL PULMONARY EDEMA, UNCHANGED.
[2017-12-09] MEDS: Famotidine TAB* 20 MG PO SCH (09:12)
[2017-12-09] MEDS: Pregabalin CAP(*) 25 MG PO SCH ×3 (09:12→20:10)
[2017-12-09] MEDS: KCL 20 MEQ/100 ML IVPREMIX* 20 MEQ/100 ML BAG IV SCH ×2 (09:13→11:02)
[2017-12-09] MEDS: PARoxetine HCL TAB* 40 MG PO SCH (10:00)
[2017-12-09] MEDS: Vancomycin(*) 750 MG in NS 0.9% 250 ML* 250 ML IVPB SCH ×2 (11:02→20:49)
--- NOTE | 2017-12-09 11:05 | PN ---
Progress Note - Progress Note Date of Service: 12/09/17 Note: Progress Note -- Critical Care 24 hour events -transferred yesterday; central line placed; started on levo; pulm elda+ -noted repeat hg with 4-5; given 2 prbc -started on lasix infusion for elevated CVP 24 -good urine output overnight -decreasing levo requirements -no arrythmias noted -awakens, alert, able to answer questions, some confusioin at times -afebrile overnight, no cough/sob/cp/n/v/headache -hungry now Tele: nsr Vitals: Vital Signs Temp 98.7 F 12/09/17 08:00 Pulse 83 12/09/17 10:01 Resp 13 12/09/17 10:01 BP 98/64 12/09/17 10:01 Pulse Ox 96 12/09/17 10:01 Intake & Output 12/08/17 12/09/17 12/09/17 18:59 06:59 18:59 Intake Total 1119 Output Total 4285 1025 Balance -3166 -1025 Weight 120.9 kg Intake: IV Fluids 95 NS (0.9%) 95 Medicated IV 457 CC - Norepinephrine/ 382 Levophed GEN - Furosemide/Lasix 75 Packed Cells 567 Output: Urine 3400 George 885 1025 O2/Vent: 2 L NC Infusions: levophed, lasix 10mg/hr Current Medications: Famotidine (Pepcid Tab*) 20 mg PO DAILY [facility] Last Admin: 12/09/17 09:12 Dose: 20 mg Piperacillin Sod/Tazobactam (Sod 3.375 gm/ Sodium Chloride) 100 mls @ 25 mls/ hr IVPB Q8H [facility] Last Admin: 12/09/17 06:33 Dose: 25 mls/hr Norepinephrine Bitartrate (Levophed 16 Mcg/Ml Premix Bag*) 4,000 mcg in 250 mls @ 18.75 mls/hr IV .INITIAL RATE [facility]NE; Protocol Last Admin: 12/09/17 02:22 Dose: 37.5 mls/hr Potassium Chloride (Potassium Chloride 20 Meq/100 Ml Ivpremix*) 20 meq in 100 mls @ 50 mls/hr IV Q2H [facility] Stop: 12/09/17 12:59 Last Admin: 12/09/17 09:13 Dose: 50 mls/hr Vancomycin HCl 750 mg/ Sodium (Chloride) 250 mls @ 166.667 mls/hr IVPB Q12H [facility] Furosemide 100 mg/ Sodium (Chloride) 100 mls @ 5 mls/hr IV Q10H [facility]; Protocol Oxycodone/Acetaminophen (Percocet 5/325 Tab*) 1 tab PO Q6H PRN PRN Reason: PAIN Paroxetine HCl (Paxil Tab*) 40 mg PO DAILY [facility] Pharmacy Consult (Vancomycin Per Pharmacy*) 1 note FOLLOW UP .VANC PER PHARMACY [facility] Pharmacy Consult (Zosyn Per Pharmacy*) 1 note FOLLOW UP .ZOSYN PER PHARMACY [facility] Pharmacy Profile Note (Vancomycin Trough Check) 1 note FOLLOW UP 929 ONE Stop: 12/11/17 09:31 Pramipexole Dihydrochloride (Mirapex Tab*) 2 mg PO QPM [facility] Last Admin: 12/08/17 22:30 Dose: 2 mg Pregabalin (Lyrica Cap(*)) 75 mg PO TID [facility] Last Admin: 12/09/17 09:12 Dose: 75 mg Physical Exam: General: awake, alert, no distress, no diaphoresis Head: normocephalic, atraumatic HEENT: no pallor, no icterus, moist mucous membranes Neck: soft, supple, no jvd, no stridor CVS: tachy, regular, no murmur Resp: bilateral air entry, scattered rhales+, no wheeze, no rhonchi, no acc muscle use Abdomen: soft, obese, nontender, nondistended, chronic skin changes+, BS+; areas of redness under abd panus Ext: pulses+, warm; bilateral LE edema+; Right leg 3x3cm wound, dry appearing with scab, erythema+, no found drainage noted now, no crepitus noted Skin: intact, no breakdown, no dryness Neuro: awake, alert, orientedx3, moving all extremities, no gross focal deficit Labs: Laboratory Results - last 24 hr 12/08/17 12/08/17 12/08/17 19:00 19:00 19:00 WBC Cancelled RBC Cancelled Hgb Cancelled Hct Cancelled MCV Cancelled MCH Cancelled MCHC Cancelled RDW Cancelled Plt Count Cancelled MPV Cancelled Neut % (Auto) Cancelled Lymph % (Auto) Cancelled [place] % (Auto) Cancelled Eos % (Auto) Cancelled Baso % (Auto) Cancelled Absolute Neuts (auto) Cancelled Absolute Lymphs (auto) Cancelled Absolute Monos (auto) Cancelled Absolute Eos (auto) Cancelled Absolute Basos (auto) Cancelled Absolute Nucleated RBC Cancelled CBC Comment Cancelled Nucleated RBC % Cancelled Diff Slide Review Cancelled Hypogranular Platelets Cancelled Clumped Platelets Cancelled Large Platelets Cancelled Giant Platelets Cancelled Hypochromasia Elliptocytes INR (Anticoag Therapy) VBG pH VBG pCO2 VBG pO2 VBG HCO3 VBG O2 Saturation VBG Base Excess Sodium Cancelled Potassium Cancelled Chloride Cancelled Carbon Dioxide Cancelled Anion Gap Cancelled BUN Cancelled Creatinine Cancelled Est GFR ( Amer) Cancelled Est GFR (Non-Af Amer) Cancelled BUN/Creatinine Ratio Cancelled Glucose Cancelled POC Glucose (mg/dL) Hemoglobin A1c Lactic Acid Cancelled Calcium Cancelled Total Bilirubin Cancelled AST Cancelled ALT Cancelled Alkaline Phosphatase Cancelled Total Creatine Kinase Cancelled Troponin I Cancelled B-Natriuretic Peptide Total Protein Cancelled Albumin Cancelled Globulin Cancelled Albumin/Globulin Ratio Cancelled Procalcitonin TSH Cancelled Random Vancomycin Cancelled Blood Type Antibody Screen Crossmatch 12/08/17 12/08/17 12/08/17 19:58 19:58 19:58 WBC 14.3 H RBC 1.63 L Hgb 4.8 L* Hct 15 L MCV 93 MCH 30 MCHC 32 RDW 21 H Plt Count 148 L MPV 9.9 Neut % (Auto) 91.4 H Lymph % (Auto) 2.2 L [place] % (Auto) 5.4 Eos % (Auto) 0.7 Baso % (Auto) 0.3 Absolute Neuts (auto) 13.0 H Absolute Lymphs (auto) 0.3 L Absolute Monos (auto) 0.8 Absolute Eos (auto) 0.1 Absolute Basos (auto) 0 Absolute Nucleated RBC 0 CBC Comment Nucleated RBC % 0 Diff Slide Review Hypogranular Platelets Clumped Platelets Large Platelets Giant Platelets Hypochromasia 1+ Elliptocytes 1+ INR (Anticoag Therapy) VBG pH VBG pCO2 VBG pO2 VBG HCO3 VBG O2 Saturation VBG Base Excess Sodium Potassium Chloride Carbon Dioxide Anion Gap BUN Creatinine Est GFR ( Amer) Est GFR (Non-Af Amer) BUN/Creatinine Ratio Glucose POC Glucose (mg/dL) Hemoglobin A1c Lactic Acid 1.2 Calcium Total Bilirubin AST ALT Alkaline Phosphatase Total Creatine Kinase Troponin I B-Natriuretic Peptide Total Protein Albumin Globulin Albumin/Globulin Ratio Procalcitonin 4.3 H TSH Random Vancomycin Blood Type Antibody Screen Crossmatch 12/08/17 12/08/17 12/08/17 19:58 19:58 19:58 WBC RBC Hgb Hct MCV MCH MCHC RDW Plt Count MPV Neut % (Auto) Lymph % (Auto) [place] % (Auto) Eos % (Auto) Baso % (Auto) Absolute Neuts (auto) Absolute Lymphs (auto) Absolute Monos (auto) Absolute Eos (auto) Absolute Basos (auto) Absolute Nucleated RBC CBC Comment Nucleated RBC % Diff Slide Review Hypogranular Platelets Clumped Platelets Large Platelets Giant Platelets Hypochromasia Elliptocytes INR (Anticoag Therapy) VBG pH VBG pCO2 VBG pO2 VBG HCO3 VBG O2 Saturation VBG Base Excess Sodium 143 Potassium 3.2 L Chloride 117 H Carbon Dioxide 19 L Anion Gap 7 BUN 20 Creatinine 1.46 H Est GFR ( Amer) 43.5 Est GFR (Non-Af Amer) 36.0 BUN/Creatinine Ratio 13.7 Glucose 71 POC Glucose (mg/dL) Hemoglobin A1c 5.4 Lactic Acid Calcium 7.1 L Total Bilirubin 0.60 AST 14 ALT 9 Alkaline Phosphatase 77 Total Creatine Kinase 37 Troponin I 0.01 B-Natriuretic Peptide 210 H Total Protein 4.8 L Albumin 2.7 L Globulin 2.1 Albumin/Globulin Ratio 1.3 Procalcitonin TSH 1.54 Random Vancomycin 11.8 Blood Type Antibody Screen Crossmatch 12/08/17 12/08/17 12/09/17 19:58 19:58 00:56 WBC RBC Hgb Hct MCV MCH MCHC RDW Plt Count MPV Neut % (Auto) Lymph % (Auto) [place] % (Auto) Eos % (Auto) Baso % (Auto) Absolute Neuts (auto) Absolute Lymphs (auto) Absolute Monos (auto) Absolute Eos (auto) Absolute Basos (auto) Absolute Nucleated RBC CBC Comment Nucleated RBC % Diff Slide Review Hypogranular Platelets Clumped Platelets Large Platelets Giant Platelets Hypochromasia Elliptocytes INR (Anticoag Therapy) 3.42 H VBG pH VBG pCO2 VBG pO2 VBG HCO3 VBG O2 Saturation VBG Base Excess Sodium Potassium Chloride Carbon Dioxide Anion Gap BUN Creatinine Est GFR ( Amer) Est GFR (Non-Af Amer) BUN/Creatinine Ratio Glucose POC Glucose (mg/dL) 87 Hemoglobin A1c Lactic Acid Calcium Total Bilirubin AST ALT Alkaline Phosphatase Total Creatine Kinase Troponin I B-Natriuretic Peptide Total Protein Albumin Globulin Albumin/Globulin Ratio Procalcitonin TSH Random Vancomycin Blood Type O Positive Antibody Screen Negative Crossmatch See Detail 12/09/17 12/09/17 12/09/17 02:30 02:30 05:30 WBC 13.8 H RBC 4.16 Hgb 12.4 Hct 38 MCV 92 MCH 30 MCHC 33 RDW 20 H Plt Count 165 MPV 9.9 Neut % (Auto) Lymph % (Auto) [place] % (Auto) Eos % (Auto) Baso % (Auto) Absolute Neuts (auto) Absolute Lymphs (auto) Absolute Monos (auto) Absolute Eos (auto) Absolute Basos (auto) Absolute Nucleated RBC CBC Comment Nucleated RBC % Diff Slide Review Hypogranular Platelets Clumped Platelets Large Platelets Giant Platelets Hypochromasia Elliptocytes INR (Anticoag Therapy) VBG pH VBG pCO2 VBG pO2 VBG HCO3 VBG O2 Saturation VBG Base Excess Sodium 143 Potassium 3.6 Chloride 113 H Carbon Dioxide 21 L Anion Gap 9 BUN 20 Creatinine 1.59 H Est GFR ( Amer) 39.4 Est GFR (Non-Af Amer) 32.6 BUN/Creatinine Ratio 12.6 Glucose 91 POC Glucose (mg/dL) Hemoglobin A1c Lactic Acid 1.6 Calcium 8.3 L Total Bilirubin AST ALT Alkaline Phosphatase Total Creatine Kinase Troponin I B-Natriuretic Peptide Total Protein Albumin Globulin Albumin/Globulin Ratio Procalcitonin TSH Random Vancomycin 9.7 Blood Type Antibody Screen Crossmatch 12/09/17 12/09/17 12/09/17 05:30 05:30 05:46 WBC 11.1 H RBC 4.06 Hgb 12.2 Hct 37 MCV 91 MCH 30 MCHC 33 RDW 20 H Plt Count 153 MPV 9.3 Neut % (Auto) Lymph % (Auto) [place] % (Auto) Eos % (Auto) Baso % (Auto) Absolute Neuts (auto) Absolute Lymphs (auto) Absolute Monos (auto) Absolute Eos (auto) Absolute Basos (auto) Absolute Nucleated RBC CBC Comment Nucleated RBC % Diff Slide Review Hypogranular Platelets Clumped Platelets Large Platelets Giant Platelets Hypochromasia Elliptocytes INR (Anticoag Therapy) 3.24 H VBG pH 7.30 L VBG pCO2 44 VBG pO2 44 VBG HCO3 20.8 L VBG O2 Saturation 79.4 VBG Base Excess -4.7 L Sodium Potassium Chloride Carbon Dioxide Anion Gap BUN Creatinine Est GFR ( Amer) Est GFR (Non-Af Amer) BUN/Creatinine Ratio Glucose POC Glucose (mg/dL) Hemoglobin A1c Lactic Acid Calcium Total Bilirubin AST ALT Alkaline Phosphatase Total Creatine Kinase Troponin I B-Natriuretic Peptide Total Protein Albumin Globulin Albumin/Globulin Ratio Procalcitonin TSH Random Vancomycin Blood Type Antibody Screen Crossmatch Imaging: cxr 12/08 - pulm congestion+; TLC in place Assessment: 67y F w/pmhx of morbid obesity, 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 She states she hurt her right leg 1 week ago, kept it dressed and with topical antibiotic coverage. Then two days ago it started draining more foul smelling and green material. She went to [facility]. She was being treated for cellulitus with IV zosyn. She developed hypotension to 60s today in the morning , responded to fluids initially. Temp was 94.6, tachycardia to 120s, increased shortness of breath+ and oxygen requirements, sats dropped to 88% on RA. Documented chest pain. She was also more confused as per records. She had a duplex of right lower ext which was negative for DVT. [place] [facility] [place] In [place], on arrival, tachycardic, BP 70s, on 2 L NC, sats 97% , RR 20s. -septic shock -acute on chronic decompensated diastolic heart failure -Right leg cellulitus -Acute hypoxic respiratory failure -pulm edema -CINTHYA on CKD4 h/o DVT/PE, on warfarin Diastolic CHF, stable SMILEY on cpap Plan: Neuro- awake, alert. tired though. delirium prec. asp prec. cont pramipexol for RLS. cont lyrica for neuropathy/pain. pain control for back prn. CVS- shock, more so septic but may be soem mixed component given elevated filling pressures now. CVP 15 now, down from 24. Dec lasix infusion to 5mg/hr, can prob d/c later today if CVP lower. No arrythmias noted. Replete IV KCL. Maintain negative balance. IV abx for cellulitus. Negative LA. TTE to eval LV function/RV function. Cont Warfarin, Target INR 2-3, INR therapeutic for DVT/PE tx. Resp- on 2 L NC, no distress now. CXR with pulm edema+. IV diuretics. no clear focal infiltrate indicative of pneumonia. bronchodilators prn. CPAP at night. ID- afebrile, hypothermia improved. WBC 14->11. Right leg cellulitus+. Blood cx in process. No clear infiltrate on pneumonia. Cont Zosyn IV q8h (day#3), Vanco ( day#2)(dosing per pharmacy). f/u miller blood cultures. GI- cardiac diet. GI proph. Renal- CINTHYA on CKD4, likely from septic ATN then CHF exacc and cardiorenal syndrome + hypotension; Cr fluctuating; hypokalemia, replete IV KCL. Nongap metabolic acidosis may be from CINTHYA. Dec lasix gtt to 5mg/hr, can d/c if improved filling pressures in evening. george+. Heme- hg levels on lab draws 4-5 yesterday, no signs of bleeding. unclear if all labs recurrently diluted. given 2 prbc 12/08. now hg 12. no further PRBC. check hg later tonight. cont warfarin, target inr 2-3, currently 3+, hold tonight, will have pharmacy manage dosing daily. Endo- fingerstick achs. Musculsk- pressure ulcer prophylaxis. Bedrest, oob to chair as tolerated Wounds- none Nutrition- cardiac diet DVT prophylaxis: warfarin GI prophylaxis: pepcid Central Line: no Arterial Line: no George Cathetor: yes, present on admission; keep for strict I/O Disposition: ICU Code Status: full code Total Critical Care time is 35 minutes, excluding procedures/teaching Vishnu Parsons MD [employer] Process [employer] (Electronically Signed)
[2017-12-09] MEDS ORDERED: Perflutren Lipid Microsphere* 3 ML VIAL ONE (11:59)
--- NOTE | 2017-12-09 14:14 | ECHO ---
Patient: ALEXSANDRA TATUM [facility] Rec#: [id number] : 1950 Date: 12/09/2017 Age: 67y Height: 152.4 cm / 60.0 in Weight: 120.66 kg / 265.9 lbs Sex: F BSA: 2.11 Room#: ICU-3 Admit Date#: 12/08/2017 Type: Inpatient Referring: Vishnu Parsons Reading: Oskar Esteban DO Medicaid Nurse: Sherron Riojas RDCS CC: Orlando Price MD Transthoracic Echocardiogram Indication: Shock, congestive heart failure. BP: 98/64 HR: 66 Rhythm: NSR Findings History: Morbid obesity, DVT and PE on warfarin, diastolic CHF, breast cancer s/p mastectomy, CKD IV. Technical Comments: The study is technically limited due to patient body habitus. Completed at 1300. Left Ventricle: The left ventricular chamber size is normal. Mild concentric left ventricular hypertrophy is observed. There is normal left ventricular systolic function. The estimated ejection fraction is 60-65%. Abnormal left ventricular diastolic function is observed. Left Atrium: The left atrium is moderately dilated. Right Ventricle: The right ventricle is mildly dilated. The right ventricular global systolic function is mildly reduced. Right Atrium: The right atrium is not well visualized. Aortic Valve: The aortic valve is trileaflet. The aortic valve leaflets are moderately thickened. Mild aortic leaflet calcification is visualized. There is evidence of aortic sclerosis without stenosis. There is mild aortic regurgitation. There is no evidence of aortic stenosis. Mitral Valve: Mild mitral annular calcification present. The mitral valve leaflets are mildly thickened. There is a trace of mitral regurgitation. There is mild mitral stenosis. non-rheumatic The mean gradient across the mitral valve is 5.25 mmHg. Tricuspid Valve: The tricuspid valve leaflets are normal. There is mild tricuspid regurgitation. The right ventricular systolic pressure is estimated at 35 mmHg. There is evidence of borderline pulmonary hypertension. There is no tricuspid stenosis. Pulmonic Valve: The pulmonic valve appears normal. There is trace to mild pulmonic regurgitation. There is no pulmonic stenosis. Pericardium: There is no significant pericardial effusion. Aorta: There is mild dilatation of the ascending aorta. There is no dilatation of the aortic arch. There is mild dilatation of the aortic root. Pulmonary Artery: The main pulmonary artery is not well visualized. Venous: The inferior vena cava is dilated. There is less than 50% respiratory change in the inferior vena cava dimension. Contrast: Definity was used to optimize study. 3 mL of diluted Definity was utilized. Intravenous contrast was used to enhance endocardial border definition. Conclusions The left ventricular chamber size is normal. Mild concentric left ventricular hypertrophy is observed. There is normal left ventricular systolic function. The estimated ejection fraction is 60-65%. The left atrium is moderately dilated. The right ventricle is mildly dilated. The right ventricular global systolic function is mildly reduced. There is evidence of aortic sclerosis without stenosis. Mild mitral annular calcification associated with mild non-rheumatic mitral stenosis is present There is mild tricuspid regurgitation. There is evidence of borderline pulmonary hypertension. There is no significant pericardial effusion. There is mild dilatation of the aortic root and ascending aorta Definity was used to optimize study. Compared to prior study from 01/2017, degree of tricuspid regurgitation is less Measurements Name Value Normal Range RVIDd (AP) 2D 3.5 cm (0.9 - 2.6) IVSd (2D) 1.1 cm (0.6 - 1) LVPWd (2D) 1.1 cm (0.6 - 1) LVIDd (2D) 4.2 cm (3.6 - 5.4) LVIDs (2D) 3 cm - LV FS (2D) 28 % (25 - 45) Aortic Annulus 1.7 cm (1.4 - 2.6) Ao root diameter (2D) 4 cm (2.1 - 3.5) Ascending Ao 4 cm (2.1 - 3.4) Aortic arch 1.9 cm (1.8 - 3.4) LA dimension (AP) 2D 3.2 cm (2.3 - 3.8) LAd ISD 4CH 6.4 cm (2.9 - 5.3) LA ISD 4CH W 4.6 cm (2.5 - 4.5) Name Value Normal Range LA ESV SP 4CH (A/L) 102 ml - LA ESV SP 2CH (A/L) 82 ml - LA ESV BP (A/L) 95 ml - LA ESV BP (A/L) index 45 ml/m2 - LA ESV SP 4CH (MOD) 93 ml - LA ESV SP 2CH (MOD) 76 ml - Name Value Normal Range MV E-wave Vmax 1.44 m/sec - MV deceleration time 305.9 msec - MV A-wave Vmax 1.6 m/sec - MV E:A ratio 0.9 ratio - LV septal e' Vmax 0.06 m/sec - LV lateral e' Vmax 0.08 m/sec - LV E:e' septal ratio 24 ratio - LV E:e' lateral ratio 18 ratio - Name Value Normal Range AV Vmax 1.42 m/sec - AV VTI 32 cm - AV peak gradient 8.14 mmHg - AV mean gradient 3.24 mmHg - LVOT diameter 2 cm - LVOT Vmax 0.92 m/sec - LVOT VTI 22 cm - LVOT peak gradient 3.43 mmHg - LVOT mean gradient 1.9 mmHg - AR PHT 253 msec - AR peak gradient 19.93 mmHg - CESAR Vmax 0.76 m/sec - Name Value Normal Range MV Vmax 1.74 m/sec - MV VTI 53.66 cm - MV peak gradient 12.1 mmHg - MV mean gradient 5.25 mmHg - MV PHT 59.8 msec - MVA (PHT) 3.67 cm2 - Name Value Normal Range TR Vmax 2.6 m/sec - TR peak gradient 27 mmHg - RAP 8 mmHg - RVSP 35 mmHg - IVC diameter 3.7 cm - Name Value Normal Range PV Vmax 0.7 m/sec - PV peak gradient 2 mmHg -
[2017-12-09] MEDS: Pramipexole TAB* 0.5 MG PO SCH (18:09)
[2017-12-09] MEDS: oxyCODONE/Acetamin 5/325 MG* TAB PO PRN (20:10)
[2017-12-09] MEDS ORDERED: Melatonin 3 MG TAB PO PRN (21:07)
[2017-12-10] MEDS: oxyCODONE/Acetamin 5/325 MG* TAB PO PRN ×3 (02:41→21:28)
[2017-12-10] MEDS ORDERED: Ondansetron INJ* 2 MG/ML VIAL IV PRN (02:55)
[2017-12-10] MEDS ORDERED: Ondansetron INJ* 2 MG/ML VIAL ONE (03:03)
[2017-12-10] MEDS: Piperacillin/Tazobac ADVAN(*) 3.375 GM in NS 0.9% 100 ML* 100 ML IVPB SCH ×3 (05:32→23:09)
[2017-12-10 05:58] LABS: Hematocrit 36 % (35-47); Mean Corpuscular HGB Conc 34 g/dl (31-36); Mean Corpuscular Hemoglobin 30 pg (27-31); Mean Corpuscular Volume 90 fL (80-97); Platelet Count 116 10^3/ul (150-450); Red Blood Count 3.97 10^6/ul (4.00-5.40); Red Cell Distribution Width 20 % (10.5-15); White Blood Count 5.7 10^3/ul (3.5-10.8)
[2017-12-10 06:03] LABS: INR 3.21 (0.77-1.02)
[2017-12-10 06:13] LABS: EGFR Non-African American 32.8 (>60)
[2017-12-10] MEDS: KCL 20 MEQ/100 ML IVPREMIX* 20 MEQ/100 ML BAG IV SCH ×2 (09:20→11:37)
[2017-12-10] MEDS: PARoxetine HCL TAB* 40 MG PO SCH (09:27)
[2017-12-10] MEDS: Pregabalin CAP(*) 25 MG PO SCH ×3 (09:27→20:08)
[2017-12-10] MEDS: Famotidine TAB* 20 MG PO SCH (09:27)
[2017-12-10] MEDS: Vancomycin(*) 750 MG in NS 0.9% 250 ML* 250 ML IVPB SCH ×2 (10:10→20:27)
--- NOTE | 2017-12-10 13:40 | PN ---
Progress Note - Progress Note Date of Service: 12/10/17 Note: Progress Note -- Critical Care 24 hour events -awake, alert. no distress. states she feels better. off pressors. on lasix infusion. afebril overnight. -BP upper 90s, not tachy. Tele: nsr Vitals: Vital Signs Temp 98.3 F 12/10/17 13:00 Pulse 97 12/10/17 10:00 Resp 20 12/10/17 11:30 BP 96/67 12/10/17 11:30 Pulse Ox 90 12/10/17 10:00 Intake & Output 12/09/17 12/10/17 12/10/17 18:59 06:59 18:59 Intake Total 811 1511 120 Output Total 3330 2450 1275 Balance -2519 -939 -1155 Weight 119.1 kg Intake: IV Fluids 15 628 KVO 314 NS (0.9%) 15 314 IVPB 390 NS (0.9%) 390 Medicated IV 406 76 CC - Norepinephrine/ 137 Levophed GEN - Furosemide/Lasix 74 76 potassium chloride 195 Oral 240 120 Packed Cells 567 Output: Urine 900 1050 George 3330 1550 225 O2/Vent: 2 L NC Infusions: lasix 5mg/hr Current Medications: Famotidine (Pepcid Tab*) 20 mg PO DAILY [facility] Last Admin: 12/10/17 09:27 Dose: 20 mg Piperacillin Sod/Tazobactam (Sod 3.375 gm/ Sodium Chloride) 100 mls @ 25 mls/ hr IVPB Q8H [facility] Last Admin: 12/10/17 05:32 Dose: 25 mls/hr Norepinephrine Bitartrate (Levophed 16 Mcg/Ml Premix Bag*) 4,000 mcg in 250 mls @ 18.75 mls/hr IV .INITIAL RATE [facility]NE; Protocol Last Admin: 12/09/17 02:22 Dose: 37.5 mls/hr Vancomycin HCl 750 mg/ Sodium (Chloride) 250 mls @ 166.667 mls/hr IVPB Q12H [facility] Last Admin: 12/09/17 20:49 Dose: 166.667 mls/hr Furosemide 100 mg/ Sodium (Chloride) 100 mls @ 5 mls/hr IV Q20H [facility]; Protocol Last Admin: 08/16/18 20:15 Dose: 5 mls/hr Melatonin (Melatonin) 3 mg PO BEDTIME PRN; Protocol PRN Reason: SLEEP Last Admin: 12/09/17 21:40 Dose: 3 mg Ondansetron HCl (Zofran Inj*) 4 mg IV Q6H PRN PRN Reason: NAUSEA Oxycodone/Acetaminophen (Percocet 5/325 Tab*) 1 tab PO Q6H PRN PRN Reason: PAIN Last Admin: 12/10/17 02:41 Dose: 1 tab Paroxetine HCl (Paxil Tab*) 40 mg PO DAILY [facility] Last Admin: 12/10/17 09:27 Dose: 40 mg Pharmacy Consult (Vancomycin Per Pharmacy*) 1 note FOLLOW UP .VANC PER PHARMACY [facility] Pharmacy Consult (Zosyn Per Pharmacy*) 1 note FOLLOW UP .ZOSYN PER PHARMACY [facility] Pharmacy Profile Note (Vancomycin Trough Check) 1 note FOLLOW UP 0930 ONE Stop: 12/11/17 09:31 Pharmacy Profile Note (Coumadin Per Pharmacy*) 1 note FOLLOW UP .PER PHARMACY [facility]; Protocol Pramipexole Dihydrochloride (Mirapex Tab*) 2 mg PO QPM [facility] Last Admin: 12/09/17 18:09 Dose: 2 mg Pregabalin (Lyrica Cap(*)) 75 mg PO TID [facility] Last Admin: 12/10/17 09:27 Dose: 75 mg Physical Exam: General: awake, alert, no distress, no diaphoresis Head: normocephalic, atraumatic HEENT: no pallor, no icterus, moist mucous membranes Neck: soft, supple, no jvd CVS: normal rate, regular, no murmur Resp: bilateral air entry, improved rhales, no wheeze, no rhonchi, no acc muscle use Abdomen: soft, obese, nontender, nondistended, chronic skin changes+, BS+; areas of redness under abd panus Ext: pulses+, warm; bilateral LE edema+; Right leg 3x3cm wound, noted some purulent drainage now, erthema+ Skin: intact; except for Right LE Neuro: awake, alert, orientedx3, moving all extremities, no gross focal deficit Labs: Laboratory Results - last 24 hr 12/09/17 12/09/17 12/09/17 12:25 17:49 22:39 WBC RBC Hgb Hct MCV MCH MCHC RDW Plt Count MPV INR (Anticoag Therapy) Sodium Potassium Chloride Carbon Dioxide Anion Gap BUN Creatinine Est GFR ( Amer) Est GFR (Non-Af Amer) BUN/Creatinine Ratio Glucose POC Glucose (mg/dL) 82 100 99 Calcium 12/10/17 12/10/17 12/10/17 05:45 05:45 05:45 WBC 5.7 RBC 3.97 L Hgb 12.0 Hct 36 MCV 90 MCH 30 MCHC 34 RDW 20 H Plt Count 116 L MPV 9.0 INR (Anticoag Therapy) 3.21 H Sodium 144 Potassium 3.4 L Chloride 111 Carbon Dioxide 23 Anion Gap 10 BUN 21 Creatinine 1.58 H Est GFR ( Amer) 39.7 Est GFR (Non-Af Amer) 32.8 BUN/Creatinine Ratio 13.3 Glucose 83 POC Glucose (mg/dL) Calcium 8.6 Imaging: cxr 12/08 - pulm congestion+; TLC in place Assessment: 67y F w/pmhx of morbid obesity, 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 She states she hurt her right leg 1 week ago, kept it dressed and with topical antibiotic coverage. Then two days ago it started draining more foul smelling and green material. She went to [facility]. She was being treated for cellulitus with IV zosyn. She developed hypotension to 60s today in the morning , responded to fluids initially. Temp was 94.6, tachycardia to 120s, increased shortness of breath+ and oxygen requirements, sats dropped to 88% on RA. Documented chest pain. She was also more confused as per records. She had a duplex of right lower ext which was negative for DVT. Transferred to [facility] for higher level care. In ICU, on arrival, tachycardic, BP 70s, on 2 L NC, sats 97% , RR 20s. -septic shock, resolved -acute on chronic decompensated diastolic heart failure -Sepsis 2/2 Right leg cellulitus -Acute hypoxic respiratory failure -pulm edema -CINTHYA on CKD4 h/o DVT/PE, on warfarin Diastolic CHF, stable SMILEY on cpap Plan: Neuro- awake, alert. delirium prec. asp prec. cont pramipexol for RLS. cont lyrica for neuropathy/pain. pain control for back prn. CVS- off pressors now. BP 90s, making urine. on lasix infusion, change to IV push BID lasix 20mg. CVP 12 today. No arrythmias noted. Replete IV KCL. Maintain negative balance. IV abx for cellulitus. -TTE to eval LV function/RV function -Cont Warfarin for DVT/PE tx, Target INR 2-3; currently supratherapeutic . Resp- on 2 L NC, no distress now. IV diuretics. bronchodilators prn. CPAP at night. ID- afebrile. WBC 5. Right leg cellulitus+. Blood cx neg at [facility] and neg x2 at [facility] 48hrs. MRSA neg swabs. may probably be able to swtich to IV Cefazolin for cellulitus, will swab wound today. Cont Zosyn IV q8h (day#4), Vanco (day#3)(dosing per pharmacy) GI- cardiac diet. GI proph. Renal- CINTHYA on CKD4, likely from septic ATN then CHF exacc and cardiorenal syndrome + hypotension; Cr mid 1s. Good urine output. Na 144 now. Change lasix to 20mg IV bid. hypokalemia, replete IV KCL. Nongap metabolic acidosis improved. george+. Heme- hg stable 12. cont warfarin, target inr 2-3, currently 3+, hold tonight, will have pharmacy manage dosing daily. Endo- fingerstick achs. Musculsk- pressure ulcer prophylaxis. Bedrest, oob to chair as tolerated Wounds- none Nutrition- cardiac diet DVT prophylaxis: warfarin GI prophylaxis: pepcid Central Line: no Arterial Line: no George Cathetor: yes, present on admission; keep for strict I/O Disposition: ICU Code Status: full code Vishnu Parsons MD [employer] (Electronically Signed)
[2017-12-10] MEDS: Furosemide IV* 100 MG in NS 0.9% 100 ML* 90 ML IV SCH (17:31)
[2017-12-10] MEDS: Pramipexole TAB* 0.5 MG PO SCH (19:09)
[2017-12-10] MEDS: Furosemide IV* 10 MG/ML 2 ML VIAL (20 MG) IV SLOW PU SCH (20:07)
[2017-12-11] MEDS ORDERED: Hemorrhoidal OINT TOPICAL PRN (01:37)
[2017-12-11 02:05] LABS: Urine Appearance Clear; Urine Blood 2+ (Negative); Urine Color Straw; Urine Ketones Negative (Negative); Urine Protein Negative (Negative); Urine Red Blood Cell 3+(>10/hpf) (Absent); Urine Specific Gravity 1.008 (1.010-1.030); Urine Urobilinogen Negative (Negative); Urine White Blood Cell Trace(0-5/hpf) (Absent)
[2017-12-11 05:05] LABS: Hematocrit 32 % (35-47); Hemoglobin 10.8 g/dl (12.0-16.0); Mean Corpuscular HGB Conc 34 g/dl (31-36); Mean Corpuscular Hemoglobin 31 pg (27-31); Mean Corpuscular Volume 91 fL (80-97); Mean Platelet Volume 9.2 um3 (7.4-10.4); Platelet Count 112 10^3/ul (150-450); Red Blood Count 3.55 10^6/ul (4.00-5.40); Red Cell Distribution Width 20 % (10.5-15); White Blood Count 4.5 10^3/ul (3.5-10.8)
[2017-12-11 05:10] LABS: INR 3.65 (0.77-1.02)
[2017-12-11] MEDS: oxyCODONE/Acetamin 5/325 MG* TAB PO PRN ×2 (05:11→13:22)
[2017-12-11] MEDS: Piperacillin/Tazobac ADVAN(*) 3.375 GM in NS 0.9% 100 ML* 100 ML IVPB SCH ×4 (05:11→23:21)
[2017-12-11 05:25] LABS: EGFR Non-African American 33.1 (>60)
[2017-12-11] MEDS: Furosemide IV* 10 MG/ML 2 ML VIAL (20 MG) IV SLOW PU SCH ×2 (07:55→19:42)
[2017-12-11] MEDS ORDERED: KCL 20 MEQ/100 ML IVPREMIX* 20 MEQ/100 ML BAG IV ONE (07:58)
[2017-12-11] MEDS ORDERED: Pramipexole TAB* 0.5 MG PO ONE (08:00)
[2017-12-11] MEDS: Pregabalin CAP(*) 25 MG PO SCH ×3 (08:42→19:45)
[2017-12-11] MEDS: Famotidine TAB* 20 MG PO SCH (08:42)
[2017-12-11] MEDS: PARoxetine HCL TAB* 40 MG PO SCH (08:43)
[2017-12-11] MEDS ORDERED: Potassium Chlor TAB* 20 MEQ TAB.ER PO SCH (09:00)
[2017-12-11] MEDS ORDERED: Vancomycin Trough Check NOTE FOLLOW UP ONE (09:30)
[2017-12-11] MEDS ORDERED: Potassium Chlor TAB* 10 MEQ TAB.ER PO SCH (09:45)
[2017-12-11] MEDS: Potassium Chlor TAB* 10 MEQ TAB.ER PO SCH ×2 (09:54→19:45)
[2017-12-11] MEDS: Vancomycin(*) 750 MG in NS 0.9% 250 ML* 250 ML IVPB SCH (10:11)
[2017-12-11] MEDS: oxyCODONE SR TAB(*) 20 MG TAB.SR PO SCH ×2 (10:16→21:43)
[2017-12-11] MEDS: Vancomycin(*) 500 MG in NS 0.9% 250 ML* 250 ML IVPB SCH (13:31)
[2017-12-11] MEDS: Pramipexole TAB* 0.5 MG PO SCH (17:06)
--- NOTE | 2017-12-11 17:22 | PN ---
Subjective Date of Service: 12/11/17 Interval History: Mrs. Hutton reports doing relatively better today. Her only complaints is bilateral leg pain, not any worse than her baseline. Denies fever or chills. No chest pain or SOB. Appetite is better, denies nausea or vomiting. INR remains supratheraputic, discussed labs with her. No new complaints today. Family History: Unchanged from Admission Social History: Unchanged from Admission Past Medical History: Unchanged from Admission Objective Active Medications: Famotidine (Pepcid Tab*) 20 mg PO DAILY [facility] Last Admin: 12/11/17 08:42 Dose: 20 mg Furosemide (Lasix Iv*) 20 mg IV SLOW PU BID [facility] Last Admin: 12/11/17 07:55 Dose: Not Given Piperacillin Sod/Tazobactam (Sod 3.375 gm/ Sodium Chloride) 100 mls @ 25 mls/ hr IVPB Q8H [facility] Last Admin: 12/11/17 16:08 Dose: 25 mls/hr Vancomycin HCl 500 mg/ Sodium (Chloride) 250 mls @ 166.667 mls/hr IVPB Q12H [facility] Last Admin: 12/11/17 13:31 Dose: 166.667 mls/hr Melatonin (Melatonin) 3 mg PO BEDTIME PRN; Protocol PRN Reason: SLEEP Last Admin: 12/09/17 21:40 Dose: 3 mg Ondansetron HCl (Zofran Inj*) 4 mg IV Q6H PRN PRN Reason: NAUSEA Oxycodone HCl (Oxycontin(*)) 20 mg PO BID [facility] Last Admin: 12/11/17 10:16 Dose: 20 mg Oxycodone/Acetaminophen (Percocet 5/325 Tab*) 1 tab PO Q6H PRN PRN Reason: PAIN Last Admin: 12/11/17 13:22 Dose: 1 tab Paroxetine HCl (Paxil Tab*) 40 mg PO DAILY [facility] Last Admin: 12/11/17 08:43 Dose: 40 mg Pharmacy Consult (Vancomycin Per Pharmacy*) 1 note FOLLOW UP .VANC PER PHARMACY [facility] Pharmacy Consult (Zosyn Per Pharmacy*) 1 note FOLLOW UP .ZOSYN PER PHARMACY [facility] Pharmacy Profile Note (Coumadin Per Pharmacy*) 1 note FOLLOW UP .PER PHARMACY [facility]; Protocol Pharmacy Profile Note (Vancomycin Trough Check) 1 note FOLLOW UP 1230 ONE Stop: 12/13/17 12:31 Phenyleph/Shark Oil/Min Oil/Petrol (Preparation H*) 1 applic TOPICAL Q6H PRN PRN Reason: HEMORRHOIDAL PAIN Potassium Chloride (Klor Con Er Tab*) 10 meq PO 0900,2100 [facility] Last Admin: 12/11/17 09:54 Dose: 10 meq Pramipexole Dihydrochloride (Mirapex Tab*) 2 mg PO QPM [facility] Last Admin: 12/11/17 17:06 Dose: 2 mg Pregabalin (Lyrica Cap(*)) 75 mg PO TID [facility] Last Admin: 12/11/17 14:54 Dose: 75 mg Vital Signs - 8 hr 12/11/17 12/11/17 12/11/17 10:16 10:19 11:12 Temperature Pulse Rate Respiratory 20 16 Rate Blood Pressure 99/65 (mmHg) O2 Sat by Pulse Oximetry 12/11/17 12/11/17 12/11/17 11:17 13:11 13:22 Temperature 97.4 F Pulse Rate 72 Respiratory 18 18 16 Rate Blood Pressure 91/54 (mmHg) O2 Sat by Pulse 97 Oximetry 12/11/17 12/11/17 12/11/17 14:54 15:52 16:36 Temperature Pulse Rate 73 Respiratory 18 18 Rate Blood Pressure 79/48 (mmHg) O2 Sat by Pulse Oximetry 12/11/17 12/11/17 16:42 17:15 Temperature Pulse Rate Respiratory Rate Blood Pressure 87/48 80/49 (mmHg) O2 Sat by Pulse Oximetry Oxygen Devices in Use Now: None Appearance: Morbidly obese older female, appears comfortable and in NAD Eyes: No Scleral Icterus, PERRLA Ears/Nose/Mouth/Throat: Clear Oropharnyx, Mucous Membranes Moist Neck: NL Appearance and Movements; NL JVP, Trachea Midline Respiratory: Symmetrical Chest Expansion and Respiratory Effort, Clear to Auscultation Cardiovascular: NL Sounds; No Murmurs; No JVD, RRR Abdominal: NL Sounds; No Tenderness; No Distention Extremities: - - Bilateral lower extremities with moderate edema and erythema noted, slightly worse on right side. A small superficial ulcer on medial aspect of R leg, just above ankle with minimal clear discharge noted. No purulent drainage or bleeding. N/V intact distally. Neurological: Alert and Oriented x 3 Nutrition: Taking PO's Result Diagrams: 12/11/17 04:57 12/11/17 04:57 Additional Lab and Data: . Microbiology and Other Data: Microbiology 12/10/17 14:00 Skin and Soft Tissue MRSA/MSSA (PCR - Final Leg Right Mrsa Negative S.aureus Negative Gram Stain - Final Wound Culture - Preliminary Corynebacterium Striatum 12/10/17 05:45 Aerobic Blood Culture - Preliminary Blood Venous No Growth Day 1 Anaerobic Blood Culture - Preliminary No Growth Day 1 12/09/17 05:30 Aerobic Blood Culture - Preliminary Blood Venous No Growth Day 2 Anaerobic Blood Culture - Preliminary No Growth Day 2 12/09/17 05:30 Nasal Screen MRSA (PCR) - Final Nasal Mrsa Not Detected 12/08/17 19:00 Nasal Screen MRSA (PCR) - Final Nasal Mrsa Not Detected Diagnostic Imaging: . EKG Data: . Assess/Plan/Problems-Billing Assessment: A 67 y/o female with multiple complex medical issues, including hx multiple DVTs /PEs, who was admitted with sever sepsis, bilateral lower extremities cellulitis that failed outpatient therapy, clinically improving - Patient Problems (1) Severe sepsis Current Visit: Yes Status: Acute Comment: - Clinically improving - On Zosyn and Vanco, continue antibiotics (2) Acute respiratory failure Current Visit: Yes Status: Acute Comment: - Breathing betterm continue bronchodilators as needed (3) CKD (chronic kidney disease) Current Visit: Yes Status: Acute Comment: - Likely worsened in setting of sepsis, better after IVF hydration - Monitor labs, replace lytes (4) Supratherapeutic INR Current Visit: Yes Status: Acute Comment: - INR 3.65 today - Hold Warfarin tonight, daily INR checks (5) Hypokalemia Current Visit: Yes Status: Acute Comment: - Replace K (6) Cellulitis Current Visit: No Status: Acute Comment: - No purulence - Continue Zosyn/Vanco - Wound consult requested (7) SMILEY (obstructive sleep apnea) Current Visit: No Status: Acute Comment: - Continue using CPAP (8) Depression Current Visit: No Status: Chronic Comment: - Continue home paroxetine (9) History of pulmonary embolus (PE) Current Visit: No Status: Chronic Comment: INR daily , resume Warfarin to maintain INR between 2-3 (10) DVT prophylaxis Current Visit: No Status: Acute Comment: - On Warfarin. (11) Full code status Current Visit: No Status: Acute Status and Disposition: Inpatient. Anticipate discharge when medically stable
[2017-12-12] MEDS: Vancomycin(*) 500 MG in NS 0.9% 250 ML* 250 ML IVPB SCH ×2 (00:58→13:37)
[2017-12-12] MEDS: Piperacillin/Tazobac ADVAN(*) 3.375 GM in NS 0.9% 100 ML* 100 ML IVPB SCH ×3 (05:50→22:49)
[2017-12-12 05:55] LABS: Hematocrit 32 % (35-47); Hemoglobin 10.6 g/dl (12.0-16.0); Mean Corpuscular HGB Conc 33 g/dl (31-36); Mean Corpuscular Hemoglobin 30 pg (27-31); Mean Corpuscular Volume 91 fL (80-97); Mean Platelet Volume 9.1 um3 (7.4-10.4); Platelet Count 117 10^3/ul (150-450); Red Blood Count 3.54 10^6/ul (4.00-5.40); Red Cell Distribution Width 20 % (10.5-15)
[2017-12-12 06:02] LABS: INR 2.73 (0.77-1.02)
[2017-12-12 08:17] LABS: EGFR Non-African American 32.3 (>60)
[2017-12-12] MEDS: oxyCODONE SR TAB(*) 20 MG TAB.SR PO SCH ×2 (08:29→22:39)
[2017-12-12] MEDS: PARoxetine HCL TAB* 40 MG PO SCH (08:29)
[2017-12-12] MEDS: Famotidine TAB* 20 MG PO SCH (08:30)
[2017-12-12] MEDS: Potassium Chlor TAB* 10 MEQ TAB.ER PO SCH ×2 (08:30→22:38)
[2017-12-12] MEDS: Furosemide IV* 10 MG/ML 2 ML VIAL (20 MG) IV SLOW PU SCH ×2 (09:37→22:37)
[2017-12-12] MEDS: Pregabalin CAP(*) 25 MG PO SCH ×3 (10:40→22:38)
--- NOTE | 2017-12-12 11:07 | PN ---
Subjective Date of Service: 12/12/17 Interval History: Mrs. Hutton reports doing better today. Her leg pain has improved taking her pain meds. Events noted from last night. Patient with transient SOB after she was leaning to her side while asleep, sats stable after position corrected. CPAP encouraged to be used at night, she can't sleep flat on her back due to large upper body habitus. Was able to get out of bed to use bedpan this AM. Tolerating diet, no nausea or vomiting. Denies fever or chills. Labs reviewed, INR down to 2.7 today. She has no new complaints today. Family History: Unchanged from Admission Social History: Unchanged from Admission Past Medical History: Unchanged from Admission Objective Active Medications: Famotidine (Pepcid Tab*) 20 mg PO DAILY [facility] Last Admin: 12/12/17 08:30 Dose: 20 mg Furosemide (Lasix Iv*) 20 mg IV SLOW PU BID [facility] Last Admin: 12/12/17 09:37 Dose: Not Given Heparin Sodium (Porcine) (Heparin Flush Picc/Ml/Cvc(*)) 1 - 3 ml FLUSH 0600, 1800 [facility]; Protocol Last Admin: 12/12/17 05:27 Dose: 3 ml Piperacillin Sod/Tazobactam (Sod 3.375 gm/ Sodium Chloride) 100 mls @ 25 mls/ hr IVPB Q8H [facility] Last Admin: 12/12/17 05:50 Dose: 25 mls/hr Vancomycin HCl 500 mg/ Sodium (Chloride) 250 mls @ 166.667 mls/hr IVPB Q12H [facility] Last Admin: 12/12/17 00:58 Dose: 166.667 mls/hr Melatonin (Melatonin) 3 mg PO BEDTIME PRN; Protocol PRN Reason: SLEEP Last Admin: 12/09/17 21:40 Dose: 3 mg Ondansetron HCl (Zofran Inj*) 4 mg IV Q6H PRN PRN Reason: NAUSEA Oxycodone HCl (Oxycontin(*)) 20 mg PO BID [facility] Last Admin: 12/12/17 08:29 Dose: 20 mg Oxycodone/Acetaminophen (Percocet 5/325 Tab*) 1 tab PO Q6H PRN PRN Reason: PAIN Last Admin: 12/11/17 13:22 Dose: 1 tab Paroxetine HCl (Paxil Tab*) 40 mg PO DAILY [facility] Last Admin: 12/12/17 08:29 Dose: 40 mg Pharmacy Consult (Vancomycin Per Pharmacy*) 1 note FOLLOW UP .VANC PER PHARMACY [facility] Pharmacy Consult (Zosyn Per Pharmacy*) 1 note FOLLOW UP .ZOSYN PER PHARMACY [facility] Pharmacy Profile Note (Coumadin Per Pharmacy*) 1 note FOLLOW UP .PER PHARMACY [facility]; Protocol Pharmacy Profile Note (Vancomycin Trough Check) 1 note FOLLOW UP 1230 ONE Stop: 12/13/17 12:31 Phenyleph/Shark Oil/Min Oil/Petrol (Preparation H*) 1 applic TOPICAL Q6H PRN PRN Reason: HEMORRHOIDAL PAIN Potassium Chloride (Klor Con Er Tab*) 10 meq PO 0900,2100 [facility] Last Admin: 12/12/17 08:30 Dose: 10 meq Pramipexole Dihydrochloride (Mirapex Tab*) 2 mg PO QPM [facility] Last Admin: 12/11/17 17:06 Dose: 2 mg Pregabalin (Lyrica Cap(*)) 75 mg PO TID [facility] Last Admin: 12/12/17 10:40 Dose: 75 mg Warfarin Sodium (Coumadin Tab(*)) 2.5 mg PO ONCE@1700 ONE; Protocol Stop: 12/12/17 17:01 Vital Signs - 8 hr 12/12/17 12/12/17 12/12/17 04:37 07:31 07:34 Temperature 97.4 F Pulse Rate 69 69 Respiratory 16 18 16 Rate Blood Pressure 84/55 96/49 (mmHg) O2 Sat by Pulse 97 98 Oximetry 12/12/17 12/12/17 08:29 10:40 Temperature Pulse Rate Respiratory 16 16 Rate Blood Pressure (mmHg) O2 Sat by Pulse Oximetry Oxygen Devices in Use Now: None Appearance: Comfortable in her bed, finished eating breakfast, in NAD. Eyes: No Scleral Icterus, PERRLA Ears/Nose/Mouth/Throat: Clear Oropharnyx, Mucous Membranes Moist Neck: NL Appearance and Movements; NL JVP, Trachea Midline Respiratory: Symmetrical Chest Expansion and Respiratory Effort, Clear to Auscultation Cardiovascular: NL Sounds; No Murmurs; No JVD, RRR Abdominal: NL Sounds; No Tenderness; No Distention Extremities: - - RLE with no changes on exam from yesterday. No calf tenderness noted. N/V intact. Neurological: Alert and Oriented x 3 Nutrition: Taking PO's Result Diagrams: 12/12/17 05:40 12/12/17 05:30 Additional Lab and Data: . Microbiology and Other Data: Diagnostic Imaging: . EKG Data: . Assess/Plan/Problems-Billing Assessment: A 67 y/o female with multiple complex medical issues, including hx multiple DVTs /PEs, who was admitted with sever sepsis, bilateral lower extremities cellulitis that failed outpatient therapy, clinically improving - Patient Problems (1) Severe sepsis Current Visit: Yes Status: Acute Comment: - Clinically improving - On Zosyn and Vanco, continue antibiotics - Bilateral leg cellulitis improving clinically. Continue wound care and await wound consult in AM. (2) Acute respiratory failure Current Visit: Yes Status: Acute Comment: - Breathing betterm continue bronchodilators as needed (3) CKD (chronic kidney disease) Current Visit: Yes Status: Acute Comment: - Likely worsened in setting of sepsis, better after IVF hydration - Monitor labs, replace lytes (4) Supratherapeutic INR Current Visit: Yes Status: Acute Comment: - INR 2.7 today - Will resume Warfarin starting tonight. Patient notes her usual dose at home was 2.5 mg (5) Hypokalemia Current Visit: Yes Status: Acute Comment: - Replace K (6) Cellulitis Current Visit: No Status: Acute Comment: - No purulence - Continue Zosyn/Vanco - Wound consult requested (7) SMILEY (obstructive sleep apnea) Current Visit: No Status: Acute Comment: - Continue using CPAP - Supportive care due to super morbid obesity (8) Depression Current Visit: No Status: Chronic Comment: - Continue home paroxetine (9) History of pulmonary embolus (PE) Current Visit: No Status: Chronic Comment: INR daily , resume Warfarin to maintain INR between 2-3 (10) DVT prophylaxis Current Visit: No Status: Acute Comment: - On Warfarin. (11) Full code status Current Visit: No Status: Acute Status and Disposition: Inpatient. Anticipate discharge when medically stable
[2017-12-12] MEDS: Pramipexole TAB* 0.5 MG PO SCH (16:14)
[2017-12-12] MEDS ORDERED: Warfarin TAB(*) 2.5 MG PO ONE (17:00)
[2017-12-13] MEDS: Vancomycin(*) 500 MG in NS 0.9% 250 ML* 250 ML IVPB SCH ×2 (01:41→15:06)
[2017-12-13] MEDS: Piperacillin/Tazobac ADVAN(*) 3.375 GM in NS 0.9% 100 ML* 100 ML IVPB SCH ×2 (05:18→14:43)
[2017-12-13 05:56] LABS: Hematocrit 33 % (35-47); Hemoglobin 10.9 g/dl (12.0-16.0); Mean Corpuscular HGB Conc 33 g/dl (31-36); Mean Corpuscular Hemoglobin 30 pg (27-31); Mean Corpuscular Volume 91 fL (80-97); Platelet Count 104 10^3/ul (150-450); Red Blood Count 3.63 10^6/ul (4.00-5.40); Red Cell Distribution Width 20 % (10.5-15); White Blood Count 4.6 10^3/ul (3.5-10.8)
[2017-12-13 06:08] LABS: INR 2.24 (0.77-1.02)
[2017-12-13 06:19] LABS: EGFR Non-African American 36.8 (>60)
[2017-12-13] MEDS: oxyCODONE/Acetamin 5/325 MG* TAB PO PRN ×2 (07:04→15:55)
[2017-12-13] MEDS: PARoxetine HCL TAB* 40 MG PO SCH (09:36)
[2017-12-13] MEDS: Famotidine TAB* 20 MG PO SCH (09:36)
[2017-12-13] MEDS: Pregabalin CAP(*) 25 MG PO SCH ×3 (09:37→21:51)
[2017-12-13] MEDS: Potassium Chlor TAB* 10 MEQ TAB.ER PO SCH ×2 (09:37→21:50)
[2017-12-13] MEDS: oxyCODONE SR TAB(*) 20 MG TAB.SR PO SCH ×2 (09:39→21:50)
[2017-12-13] MEDS ORDERED: Vancomycin Trough Check NOTE FOLLOW UP ONE (12:30)
--- NOTE | 2017-12-13 14:17 | PN ---
Subjective Date of Service: 12/13/17 Interval History: Patient seen and examined at bedside. Denies fever, chills, shortness of breath , chest discomfort, N/V. Pt states that she is having some loose stools. She reports injuring her right LE after "dropping her tablet on the leg". She reports that she didn't have a lymph node dissection on the left side with her mastectomy and that she had that side on electively and she is able to get BPs done on the left side. Per Pt she had significant hematuria yesterday, that is resolving today. She denies any "tugging" on her catheter. Per [facility] staff they report that the IV Lasix has been held all weekend d/t soft BP. Pt states that her baseline BP is about 110-120's. French states that she sleeps in a chair due to his chronic neck issues. She doesn' t use oxygen at home. Pt is very adamant that she will be returning to home at discharge. She states that she lives closer to [facility] and that would be easier for wound care. She also reports that [facility] will not see her because she is "medically too complex". Tele: Sinus rhythm, rate 60-70's. Family History: Unchanged from Admission Social History: Unchanged from Admission Past Medical History: Unchanged from Admission Objective Active Medications: Famotidine (Pepcid Tab*) 20 mg PO DAILY [facility] Furosemide (Lasix Iv*) 20 mg IV SLOW PU BID [facility] Heparin Sodium (Porcine) (Heparin Flush Picc/Ml/Cvc(*)) 1 - 3 ml FLUSH 0600, 1800 [facility]; Protocol Piperacillin Sod/Tazobactam (Sod 3.375 gm/ Sodium Chloride) 100 mls @ 25 mls/ hr IVPB Q8H [facility] Vancomycin HCl 500 mg/ Sodium (Chloride) 250 mls @ 166.667 mls/hr IVPB Q12H [facility] Melatonin (Melatonin) 3 mg PO BEDTIME PRN; Protocol Reason: SLEEP Ondansetron HCl (Zofran Inj*) 4 mg IV Q6H PRN Reason: NAUSEA Oxycodone HCl (Oxycontin(*)) 20 mg PO BID [facility] Oxycodone/Acetaminophen (Percocet 5/325 Tab*) 1 tab PO Q6H PRN Reason: PAIN Paroxetine HCl (Paxil Tab*) 40 mg PO DAILY [facility] Pharmacy Consult (Vancomycin Per Pharmacy*) 1 note FOLLOW UP .VANC PER PHARMACY [facility] Pharmacy Consult (Zosyn Per Pharmacy*) 1 note FOLLOW UP .ZOSYN PER PHARMACY [facility] Pharmacy Profile Note (Coumadin Per Pharmacy*) 1 note FOLLOW UP .PER PHARMACY PROTOC [facility]; Protocol Phenyleph/Shark Oil/Min Oil/Petrol (Preparation H*) 1 applic TOPICAL Q6H PRN Reason: HEMORRHOIDAL PAIN Potassium Chloride (Klor Con Er Tab*) 10 meq PO 0900,2100 [facility] Pramipexole Dihydrochloride (Mirapex Tab*) 2 mg PO QPM [facility] Pregabalin (Lyrica Cap(*)) 75 mg PO TID [facility] Warfarin Sodium (Coumadin Tab(*)) 2.5 mg PO ONCE ONE Stop: 12/13/17 17:01 Vital Signs - 8 hr 12/13/17 12/13/17 12/13/17 07:04 07:18 07:51 Temperature 97.9 F Pulse Rate 72 Respiratory 21 26 20 Rate Blood Pressure 90/58 (mmHg) O2 Sat by Pulse 99 Oximetry 12/13/17 12/13/17 12/13/17 09:37 09:39 09:44 Temperature Pulse Rate Respiratory 14 14 Rate Blood Pressure 88/61 (mmHg) O2 Sat by Pulse Oximetry 12/13/17 12/13/17 11:10 12:28 Temperature Pulse Rate 74 Respiratory 18 Rate Blood Pressure 103/66 (mmHg) O2 Sat by Pulse Oximetry Oxygen Devices in Use Now: Nasal Cannula - 2L Appearance: NAD, sitting up in a chair Ears/Nose/Mouth/Throat: Mucous Membranes Moist Neck: NL Appearance and Movements; NL JVP Respiratory: Symmetrical Chest Expansion and Respiratory Effort, Clear to Auscultation Cardiovascular: NL Sounds; No Murmurs; No JVD, RRR Abdominal: NL Sounds; No Tenderness; No Distention - , obese Extremities: - - 2+ bilateral LE edema Skin: - - Purplish colored bilateral LEs with wounds to the right lower leg. Pt also noted to have a skin tear to left UE. Neurological: Alert and Oriented x 3, NL Muscle Strength and Tone Lines/Tubes/Other Access: Clean, Dry and Intact Central Line - Right IJ, site benign Nutrition: Taking PO's Result Diagrams: 12/13/17 05:40 12/13/17 05:40 Additional Lab and Data: . Microbiology and Other Data: Diagnostic Imaging: . EKG Data: . Assess/Plan/Problems-Billing Assessment: Ms. Hutton is a 67 y/o female with multiple complex medical issues, including hx multiple DVTs/PEs, who was admitted with sever sepsis, bilateral lower extremities cellulitis that failed outpatient therapy, clinically improving. - Patient Problems (1) Severe sepsis Code(s): A41.9 - SEPSIS, UNSPECIFIED ORGANISM; R65.20 - SEVERE SEPSIS WITHOUT SEPTIC SHOCK SNOMED Code(s): 10217627 Comment: - Resolving (no leukocytosis, afebrile, no tachycardia, no tachypnea) - Bilateral leg cellulitis improving clinically - Blood cultures, no growth to date - Wound culture with Corynebacterium striatum - Continue wound care (see orders) - Continue Vanco (per [facility] ABX guide this is typically the most reliable ABX choice) and discontinue Zosyn - Will ask ID to consult in the AM (2) Cellulitis Code(s): L03.90 - CELLULITIS, UNSPECIFIED SNOMED Code(s): 705969668 Comment: - No purulence, afebrile, no leukocytosis - Wound culture with Corynebacterium striatum, ? if this is a contaminate - Continue wound care (see orders) - Continue Vanco (per [facility] ABX guide this is typically the most reliable ABX choice), day 6/7 and discontinue Zosyn - ID consult, pending (3) Acute respiratory failure SNOMED Code(s): 46431345 Comment: - Resolved, now on room air - Continue bronchodilators as needed (4) Hypokalemia Code(s): E87.6 - HYPOKALEMIA SNOMED Code(s): 14673326 Comment: - Will give replacement and recheck labs in the AM (5) Diastolic heart failure Code(s): I50.30 - UNSPECIFIED DIASTOLIC (CONGESTIVE) HEART FAILURE SNOMED Code (s): 316703561 Comment: - Not clear that she is in acute exacerbation despite - Hx clinical dx HFpEF - Bilateral LE edema - Daily weights and Strict I+O's - Continue IV Lasix (6) Supratherapeutic INR Code(s): R79.1 - ABNORMAL COAGULATION PROFILE SNOMED Code(s): 630435815 Comment: - Resolved (7) CKD (chronic kidney disease) Code(s): N18.9 - CHRONIC KIDNEY DISEASE, UNSPECIFIED SNOMED Code(s): 603720418 Comment: - Stage 3, appears to be near baseline - Continue to monitor labs (8) Chronic pain Code(s): G89.29 - OTHER CHRONIC PAIN SNOMED Code(s): 52866672 Comment: - Able to ambulate at home and take care of herself according to patient - Continue Oxycontin, oxycodone PRN, and lyrica (9) SMILEY (obstructive sleep apnea) Code(s): G47.33 - OBSTRUCTIVE SLEEP APNEA (ADULT) (PEDIATRIC) SNOMED Code(s): 85339049 Comment: - Continue CPAP (10) Physical deconditioning Code(s): R53.81 - OTHER MALAISE SNOMED Code(s): 56651744260746 Comment: - PT evaluation appreciated - Lengthy conversation with patient about SNF placement for rehab. She states she had bad experiences in SNFs before and will never go again. Her plan is to go home with assistance (11) Breast CA Code(s): C50.919 - MALIGNANT NEOPLASM OF UNSP SITE OF UNSPECIFIED FEMALE BREAST SNOMED Code(s): 794457192 Comment: - Right breast - History bilateral radical mastectomy (12) History of pulmonary embolus (PE) Code(s): Z86.711 - PERSONAL HISTORY OF PULMONARY EMBOLISM SNOMED Code(s): 293415146 Comment: - Continue Warfarin to maintain INR between 2-3 (13) DVT prophylaxis Code(s): EBN4670 - SNOMED Code(s): 075701502 Comment: - Continue Warfarin (14) Full code status Code(s): Z78.9 - OTHER SPECIFIED HEALTH STATUS SNOMED Code(s): 674378360 Status and Disposition: Inpatient. Anticipate discharge when medically stable. Pt may benefit from placement at discharge. Attending: Vaughn Grant
[2017-12-13] MEDS: Furosemide IV* 10 MG/ML 2 ML VIAL (20 MG) IV SLOW PU SCH ×2 (14:43→21:50)
[2017-12-13] MEDS: Collagenase 250 MG/GM OINT* 30 GM TOPICAL SCH (15:14)
--- NOTE | 2017-12-13 16:44 | RAD ---
Indication: Claudication. Ankle-brachial index on the right is 1.19. Ankle-brachial index on the left is 1.35. Doppler interrogation demonstrates triphasic flow in both posterior tibial artery and dorsalis pedis arteries. Passes mammography demonstrates adequate upstroke and vomiting. IMPRESSION: Normal ankle-brachial indices.
[2017-12-13] MEDS: Pramipexole TAB* 0.5 MG PO SCH (16:46)
[2017-12-13] MEDS ORDERED: Warfarin TAB(*) 2.5 MG PO ONE (17:00)
[2017-12-13] MEDS ORDERED: KCL 20 MEQ/100 ML IVPREMIX* 20 MEQ/100 ML BAG IV ONE (20:02)
[2017-12-13] MEDS ORDERED: Potassium Chlor TAB* 20 MEQ TAB.ER PO ONE (20:02)
[2017-12-14] MEDS: oxyCODONE/Acetamin 5/325 MG* TAB PO PRN ×2 (03:47→16:24)
[2017-12-14] MEDS: Vancomycin(*) 750 MG in NS 0.9% 250 ML* 250 ML IVPB SCH (06:17)
[2017-12-14 06:30] LABS: INR 2.42 (0.77-1.02)
[2017-12-14] MEDS: Pregabalin CAP(*) 25 MG PO SCH ×3 (07:57→20:19)
[2017-12-14] MEDS: Potassium Chlor TAB* 10 MEQ TAB.ER PO SCH ×2 (07:58→20:21)
[2017-12-14] MEDS: PARoxetine HCL TAB* 40 MG PO SCH (07:58)
[2017-12-14] MEDS: Famotidine TAB* 20 MG PO SCH (07:58)
[2017-12-14] MEDS: oxyCODONE SR TAB(*) 20 MG TAB.SR PO SCH ×2 (07:58→20:20)
[2017-12-14] MEDS ORDERED: Magnesium Sulfate IV* 3 GM in NS 0.9% 100 ML* 100 ML IVPB ONE (08:30)
[2017-12-14] MEDS: Collagenase 250 MG/GM OINT* 30 GM TOPICAL SCH (09:29)
--- NOTE | 2017-12-14 13:36 | PN ---
Subjective Date of Service: 12/14/17 Interval History: Patient seen and examined at bedside. Denies fever, chills, shortness of breath , chest discomfort, N/V/D. Pt states that she has been able to get up with staff but it is difficult since she is use to her lift chair at home. She states that her legs have been discolored for awhile since she started getting cellulitis. She feels that she would be ready to manage at home in the next 2-3 days. Tele: Sinus rhythm, rate 60-80's. Family History: Unchanged from Admission Social History: Unchanged from Admission Past Medical History: Unchanged from Admission Objective Active Medications: Collagenase (Santyl 250 Mg/Gm Oint*) 1 applic TOPICAL DAILY [facility] Famotidine (Pepcid Tab*) 20 mg PO DAILY [facility] Furosemide (Lasix Iv*) 20 mg IV SLOW PU BID [facility] Heparin Sodium (Porcine) (Heparin Flush Picc/Ml/Cvc(*)) 1 - 3 ml FLUSH 0600, 1800 [facility]; Protocol Vancomycin HCl 750 mg/ Sodium (Chloride) 250 mls @ 166.667 mls/hr IVPB Q24H [facility] Melatonin (Melatonin) 3 mg PO BEDTIME PRN; Protocol Reason: SLEEP Ondansetron HCl (Zofran Inj*) 4 mg IV Q6H PRN Reason: NAUSEA Oxycodone HCl (Oxycontin(*)) 20 mg PO BID [facility] Oxycodone/Acetaminophen (Percocet 5/325 Tab*) 1 tab PO Q6H PRN Reason: PAIN Paroxetine HCl (Paxil Tab*) 40 mg PO DAILY [facility] Pharmacy Consult (Vancomycin Per Pharmacy*) 1 note FOLLOW UP .VANC PER PHARMACY [facility] Pharmacy Profile Note (Coumadin Per Pharmacy*) 1 note FOLLOW UP .PER PHARMACY [facility]; Protocol Pharmacy Profile Note (Vancomycin Trough Check) 1 note FOLLOW UP 0600 ONE Stop: 12/16/17 06:01 Phenyleph/Shark Oil/Min Oil/Petrol (Preparation H*) 1 applic TOPICAL Q6H PRN Reason: HEMORRHOIDAL PAIN Potassium Chloride (Klor Con Er Tab*) 10 meq PO 0900,2100 [facility] Pramipexole Dihydrochloride (Mirapex Tab*) 2 mg PO QPM [facility] Pregabalin (Lyrica Cap(*)) 75 mg PO TID [facility] Warfarin Sodium (Coumadin Tab(*)) 2.5 mg PO ONCE@1700 ONE Stop: 12/14/17 17:01 Vital Signs - 8 hr 12/14/17 12/14/17 12/14/17 06:13 07:24 07:45 Temperature 97.3 F Pulse Rate 65 Respiratory 18 16 Rate Blood Pressure 76/50 80/46 (mmHg) O2 Sat by Pulse Oximetry 12/14/17 12/14/17 12/14/17 07:57 07:58 08:00 Temperature Pulse Rate Respiratory 18 18 18 Rate Blood Pressure (mmHg) O2 Sat by Pulse Oximetry 12/14/17 12/14/17 12/14/17 09:16 10:51 10:52 Temperature 97.8 F Pulse Rate 72 Respiratory 16 18 18 Rate Blood Pressure 88/43 (mmHg) O2 Sat by Pulse 100 Oximetry 12/14/17 12/14/17 11:05 11:10 Temperature 97.6 F Pulse Rate 72 69 Respiratory 18 Rate Blood Pressure 85/58 (mmHg) O2 Sat by Pulse 100 100 Oximetry Oxygen Devices in Use Now: Nasal Cannula - 2L Appearance: NAD, sitting up in bed Ears/Nose/Mouth/Throat: Mucous Membranes Moist Respiratory: Symmetrical Chest Expansion and Respiratory Effort, Clear to Auscultation - , diminished Cardiovascular: NL Sounds; No Murmurs; No JVD, RRR Abdominal: NL Sounds; No Tenderness; No Distention - , obsese ABD Extremities: - - 1-2 + bilateral LE edema Skin: - - Purplish discoloration to bilateral LEs. Right LE with mild erythema. Dressing to right LE clean and dry. Neurological: Alert and Oriented x 3, NL Muscle Strength and Tone Lines/Tubes/Other Access: Clean, Dry and Intact Central Line - right IJ, site benign Nutrition: Taking PO's Result Diagrams: 12/13/17 05:40 12/14/17 06:15 Additional Lab and Data: . Microbiology and Other Data: Diagnostic Imaging: . EKG Data: . Assess/Plan/Problems-Billing Assessment: Ms. Hutton is a 67 y/o female with multiple complex medical issues, including hx multiple DVTs/PEs, who was admitted with sever sepsis, bilateral lower extremities cellulitis that failed outpatient therapy, clinically improving. - Patient Problems (1) Severe sepsis Code(s): A41.9 - SEPSIS, UNSPECIFIED ORGANISM; R65.20 - SEVERE SEPSIS WITHOUT SEPTIC SHOCK SNOMED Code(s): 58479470 Comment: - Resolving (no leukocytosis, afebrile, no tachycardia, no tachypnea) - Bilateral leg cellulitis improving clinically - Blood cultures, no growth to date - Wound culture with Corynebacterium striatum - Continue wound care (see orders) - Continue Vanco, day 6/7 (2) Cellulitis Code(s): L03.90 - CELLULITIS, UNSPECIFIED SNOMED Code(s): 289309026 Comment: - No purulence, afebrile, no leukocytosis - Wound culture with Corynebacterium striatum, ? if this is a contaminate - Continue wound care (see orders) - Continue Vanco (per [facility] ABX guide this is typically the most reliable ABX choice), day 6/7 (3) Acute respiratory failure SNOMED Code(s): 49006995 Comment: - Resolved, now on room air - Continue bronchodilators as needed (4) Hypokalemia Code(s): E87.6 - HYPOKALEMIA SNOMED Code(s): 34609520 Comment: - Resolved (5) Hypomagnesemia Code(s): E83.42 - HYPOMAGNESEMIA SNOMED Code(s): 658876832 Comment: - Will give replacement today and recheck labs in the AM (6) Diastolic heart failure Code(s): I50.30 - UNSPECIFIED DIASTOLIC (CONGESTIVE) HEART FAILURE SNOMED Code (s): 588777580 Comment: - Not clear that she is in acute exacerbation despite - Hx clinical dx HFpEF - Bilateral LE edema - Daily weights and Strict I+O's - Continue IV Lasix (7) Wound of right leg Code(s): S81.801A - UNSPECIFIED OPEN WOUND, RIGHT LOWER LEG, INITIAL ENCOUNTER SNOMED Code(s): 328099271 Comment: - 5 wounds to right LE - States wounds occured from droping her "tablet" on her leg - ABIs are normal - Continue Sanytl to 2 wounds with slough and collegen to other 3 wounds - Consider Medigrip at discharge once cellulitis has resolved (8) Supratherapeutic INR Code(s): R79.1 - ABNORMAL COAGULATION PROFILE SNOMED Code(s): 500640093 Comment: - Resolved (9) CKD (chronic kidney disease) Code(s): N18.9 - CHRONIC KIDNEY DISEASE, UNSPECIFIED SNOMED Code(s): 647329498 Comment: - Stage 3, appears to be near baseline - Continue to monitor labs (10) Chronic pain Code(s): G89.29 - OTHER CHRONIC PAIN SNOMED Code(s): 50508434 Comment: - Able to ambulate at home and take care of herself according to patient - Continue Oxycontin, oxycodone PRN, and lyrica (11) SMILEY (obstructive sleep apnea) Code(s): G47.33 - OBSTRUCTIVE SLEEP APNEA (ADULT) (PEDIATRIC) SNOMED Code(s): 86876506 Comment: - Continue CPAP (12) Physical deconditioning Code(s): R53.81 - OTHER MALAISE SNOMED Code(s): 92352754974033 Comment: - PT evaluation appreciated - Lengthy conversation with patient about SNF placement for rehab. She states she had bad experiences in SNFs before and will never go again. Her plan is to go home with assistance (13) Breast CA Code(s): C50.919 - MALIGNANT NEOPLASM OF UNSP SITE OF UNSPECIFIED FEMALE BREAST SNOMED Code(s): 728399218 Comment: - Right breast - History bilateral radical mastectomy (14) History of pulmonary embolus (PE) Code(s): Z86.711 - PERSONAL HISTORY OF PULMONARY EMBOLISM SNOMED Code(s): 430959889 Comment: - Continue Warfarin to maintain INR between 2-3 (15) DVT prophylaxis Code(s): OJG1542 - SNOMED Code(s): 007155702 Comment: - Continue Warfarin (16) Full code status Code(s): Z78.9 - OTHER SPECIFIED HEALTH STATUS SNOMED Code(s): 508162645 Status and Disposition: Inpatient. Anticipate discharge when medically stable. Pt may benefit from placement at discharge. Attending: Vaughn Grant
[2017-12-14] MEDS: Furosemide IV* 10 MG/ML 2 ML VIAL (20 MG) IV SLOW PU SCH ×2 (15:39→20:21)
[2017-12-14] MEDS: Pramipexole TAB* 0.5 MG PO SCH (16:24)
[2017-12-14] MEDS ORDERED: Warfarin TAB(*) 2.5 MG PO ONE (17:00)
[2017-12-15] MEDS: oxyCODONE/Acetamin 5/325 MG* TAB PO PRN ×3 (02:42→17:49)
[2017-12-15] MEDS: Vancomycin(*) 750 MG in NS 0.9% 250 ML* 250 ML IVPB SCH (05:36)
[2017-12-15 06:05] LABS: EGFR Non-African American 37.7 (>60)
[2017-12-15] MEDS: PARoxetine HCL TAB* 40 MG PO SCH (08:48)
[2017-12-15] MEDS: Furosemide IV* 10 MG/ML 2 ML VIAL (20 MG) IV SLOW PU SCH (08:49)
[2017-12-15] MEDS: Famotidine TAB* 20 MG PO SCH (08:49)
[2017-12-15] MEDS: Potassium Chlor TAB* 10 MEQ TAB.ER PO SCH ×2 (08:49→20:07)
[2017-12-15] MEDS: oxyCODONE SR TAB(*) 20 MG TAB.SR PO SCH ×2 (08:49→20:03)
[2017-12-15] MEDS: Pregabalin CAP(*) 25 MG PO SCH ×3 (08:49→20:04)
[2017-12-15 10:10] LABS: INR 2.66 (0.77-1.02)
[2017-12-15] MEDS: Collagenase 250 MG/GM OINT* 30 GM TOPICAL SCH (11:27)
--- NOTE | 2017-12-15 14:21 | PN ---
Subjective Date of Service: 12/15/17 Interval History: Pt c/o pain in R leg. Pt was tearful when discussing [facility]. Her son at the hospital there 3 yrs ago and she is interested in other STR in the area. Family History: Unchanged from Admission Social History: Unchanged from Admission Past Medical History: Unchanged from Admission Objective Active Medications: Collagenase (Santyl 250 Mg/Gm Oint*) 1 applic TOPICAL DAILY [facility] Last Admin: 12/15/17 11:27 Dose: 1 applic Famotidine (Pepcid Tab*) 20 mg PO DAILY [facility] Last Admin: 12/15/17 08:49 Dose: 20 mg Furosemide (Lasix Iv*) 20 mg IV SLOW PU BID [facility] Last Admin: 12/15/17 08:49 Dose: 20 mg Heparin Sodium (Porcine) (Heparin Flush Picc/Ml/Cvc(*)) 1 - 3 ml FLUSH 0600, 1800 [facility]; Protocol Last Admin: 12/15/17 05:36 Dose: 2 ml Vancomycin HCl 750 mg/ Sodium (Chloride) 250 mls @ 166.667 mls/hr IVPB Q24H [facility] Last Admin: 12/15/17 05:36 Dose: 166.667 mls/hr Melatonin (Melatonin) 3 mg PO BEDTIME PRN; Protocol PRN Reason: SLEEP Last Admin: 12/09/17 21:40 Dose: 3 mg Ondansetron HCl (Zofran Inj*) 4 mg IV Q6H PRN PRN Reason: NAUSEA Oxycodone HCl (Oxycontin(*)) 20 mg PO BID [facility] Last Admin: 12/15/17 08:49 Dose: 20 mg Oxycodone/Acetaminophen (Percocet 5/325 Tab*) 1 tab PO Q6H PRN PRN Reason: PAIN Last Admin: 12/15/17 11:42 Dose: 1 tab Paroxetine HCl (Paxil Tab*) 40 mg PO DAILY [facility] Last Admin: 12/15/17 08:48 Dose: 40 mg Pharmacy Consult (Vancomycin Per Pharmacy*) 1 note FOLLOW UP .VANC PER PHARMACY [facility] Pharmacy Profile Note (Coumadin Per Pharmacy*) 1 note FOLLOW UP .PER PHARMACY PROTOC [facility]; Protocol Pharmacy Profile Note (Vancomycin Trough Check) 1 note FOLLOW UP 0600 ONE Stop: 12/16/17 06:01 Phenyleph/Shark Oil/Min Oil/Petrol (Preparation H*) 1 applic TOPICAL Q6H PRN PRN Reason: HEMORRHOIDAL PAIN Potassium Chloride (Klor Con Er Tab*) 10 meq PO 0900,2100 [facility] Last Admin: 12/15/17 08:49 Dose: 10 meq Pramipexole Dihydrochloride (Mirapex Tab*) 2 mg PO QPM [facility] Last Admin: 12/14/17 16:24 Dose: 2 mg Pregabalin (Lyrica Cap(*)) 75 mg PO TID [facility] Last Admin: 12/15/17 14:12 Dose: 75 mg Warfarin Sodium (Coumadin Tab(*)) 2.5 mg PO ONCE ONE Stop: 12/15/17 17:01 Vital Signs - 8 hr 12/15/17 12/15/17 12/15/17 07:20 07:44 08:00 Temperature 97.9 F Pulse Rate 75 Respiratory 16 16 Rate Blood Pressure 87/50 99/54 (mmHg) O2 Sat by Pulse 98 Oximetry 12/15/17 12/15/17 12/15/17 08:49 11:26 11:42 Temperature 97.9 F Pulse Rate 79 Respiratory 18 20 20 Rate Blood Pressure 96/58 (mmHg) O2 Sat by Pulse 96 Oximetry 12/15/17 14:12 Temperature Pulse Rate Respiratory 20 Rate Blood Pressure (mmHg) O2 Sat by Pulse Oximetry Oxygen Devices in Use Now: Nasal Cannula Appearance: 67 yo F in nAD, aAOx3 Eyes: No Scleral Icterus, PERRLA Ears/Nose/Mouth/Throat: NL Teeth, Lips, Gums, Mucous Membranes Moist Neck: NL Appearance and Movements; NL JVP, Trachea Midline Respiratory: Symmetrical Chest Expansion and Respiratory Effort, - - crackles at b/ bases Cardiovascular: NL Sounds; No Murmurs; No JVD, RRR Abdominal: NL Sounds; No Tenderness; No Distention Lymphatic: No Cervical Adenopathy Extremities: No Clubbing, Cyanosis, - - nonpitting peedal and calf edema b/l +2 with venous stasis disocloration on left leg. R leg with 3 wounds, rather superfcial but unstageable due to slugh on bottom ranging from 2-5 cm in diameter. Skin: No Nodules or Sclerosis, - - see above Neurological: Alert and Oriented x 3, NL Muscle Strength and Tone Result Diagrams: 12/13/17 05:40 12/15/17 03:30 Additional Lab and Data: . Microbiology and Other Data: Diagnostic Imaging: . EKG Data: . Assess/Plan/Problems-Billing Assessment: Ms. Hutton is a 67 y/o female with multiple complex medical issues, including hx multiple DVTs/PEs, who was admitted with sever sepsis, bilateral lower extremities cellulitis that failed outpatient therapy, clinically improving. - Patient Problems (1) Severe sepsis Comment: - Resolving (no leukocytosis, afebrile, no tachycardia, no tachypnea) - due to bilateral leg cellulitis improving clinically - Blood cultures, no growth to date - Wound culture with Corynebacterium striatum - Continue wound care (see orders) - Continue Vanco, day 6/7 (2) Cellulitis Comment: - No purulence, afebrile, no leukocytosis - Wound culture with Corynebacterium striatum, ? if this is a contaminate - Continue wound care (see orders) - Continue Vanco today day 7/7 (3) Acute respiratory failure Comment: - Resolved, now on room air - Continue bronchodilators as needed (4) CKD (chronic kidney disease) Comment: - Stage 3, appears to be near baseline - Continue to monitor labs (5) Diastolic heart failure Comment: - Hx clinical dx HFpEF, EF 65% - Bilateral LE edema - cont daily weights and Strict I+O's - IV Lasix will be switched to PO (6) History of pulmonary embolus (PE) Comment: - Continue Warfarin to maintain INR between 2-3 (7) DVT prophylaxis Comment: - Continue Warfarin Status and Disposition: Inpatient. Anticipate discharge tomorrow to [facility], pt aware that she may need psychiatry consult for competency if she refuses to go to [facility] or [facility] and is deemed unsafe to be discharged home as per PT eval.
[2017-12-15] MEDS ORDERED: Furosemide IV* 10 MG/ML 2 ML VIAL (20 MG) IV SLOW PU ONE (14:25)
[2017-12-15] MEDS ORDERED: Warfarin TAB(*) 2.5 MG PO ONE (17:00)
[2017-12-15] MEDS: Pramipexole TAB* 0.5 MG PO SCH (17:49)
[2017-12-15] MEDS: traMADol TAB* 50 MG PO PRN (23:32)
[2017-12-16] MEDS ORDERED: Vancomycin Trough Check NOTE FOLLOW UP ONE (06:00)
[2017-12-16 06:22] LABS: INR 2.88 (0.77-1.02)
[2017-12-16] MEDS: Vancomycin(*) 750 MG in NS 0.9% 250 ML* 250 ML IVPB SCH (07:20)
[2017-12-16] MEDS: Pregabalin CAP(*) 25 MG PO SCH ×3 (11:02→21:15)
[2017-12-16] MEDS: Potassium Chlor TAB* 10 MEQ TAB.ER PO SCH ×2 (11:03→21:14)
[2017-12-16] MEDS: oxyCODONE SR TAB(*) 20 MG TAB.SR PO SCH ×2 (11:03→21:14)
[2017-12-16] MEDS: PARoxetine HCL TAB* 40 MG PO SCH (11:03)
[2017-12-16] MEDS: Famotidine TAB* 20 MG PO SCH (11:03)
[2017-12-16] MEDS: Furosemide TAB* 20 MG PO SCH (11:03)
[2017-12-16] MEDS: Collagenase 250 MG/GM OINT* 30 GM TOPICAL SCH (11:04)
--- NOTE | 2017-12-16 13:51 | PN ---
Subjective Date of Service: 12/16/17 Interval History: Pt feels well. Anxious about the transfer to [facility] or [facility]. Family History: Unchanged from Admission Social History: Unchanged from Admission Past Medical History: Unchanged from Admission Objective Active Medications: Collagenase (Santyl 250 Mg/Gm Oint*) 1 applic TOPICAL DAILY [facility] Last Admin: 12/16/17 11:04 Dose: 1 applic Famotidine (Pepcid Tab*) 20 mg PO DAILY [facility] Last Admin: 12/16/17 11:03 Dose: 20 mg Furosemide (Lasix Tab*) 60 mg PO DAILY [facility] Last Admin: 12/16/17 11:03 Dose: 60 mg Heparin Sodium (Porcine) (Heparin Flush Picc/Ml/Cvc(*)) 1 - 3 ml FLUSH 0600, 1800 [facility]; Protocol Last Admin: 12/16/17 05:46 Dose: 3 ml Melatonin (Melatonin) 3 mg PO BEDTIME PRN; Protocol PRN Reason: SLEEP Last Admin: 12/09/17 21:40 Dose: 3 mg Ondansetron HCl (Zofran Inj*) 4 mg IV Q6H PRN PRN Reason: NAUSEA Oxycodone HCl (Oxycontin(*)) 20 mg PO BID [facility] Last Admin: 12/16/17 11:03 Dose: 20 mg Oxycodone/Acetaminophen (Percocet 5/325 Tab*) 1 tab PO Q6H PRN PRN Reason: PAIN Last Admin: 12/15/17 17:49 Dose: 1 tab Paroxetine HCl (Paxil Tab*) 40 mg PO DAILY [facility] Last Admin: 12/16/17 11:03 Dose: 40 mg Phenyleph/Shark Oil/Min Oil/Petrol (Preparation H*) 1 applic TOPICAL Q6H PRN PRN Reason: HEMORRHOIDAL PAIN Potassium Chloride (Klor Con Er Tab*) 10 meq PO 0900,2100 [facility] Last Admin: 12/16/17 11:03 Dose: 10 meq Pramipexole Dihydrochloride (Mirapex Tab*) 2 mg PO QPM [facility] Last Admin: 12/15/17 17:49 Dose: 2 mg Pregabalin (Lyrica Cap(*)) 75 mg PO TID [facility] Last Admin: 12/16/17 11:02 Dose: 75 mg Tramadol HCl (Ultram*) 50 mg PO Q6H PRN PRN Reason: PAIN Last Admin: 12/15/17 23:32 Dose: 50 mg Warfarin Sodium (Coumadin Tab(*)) 2 mg PO ONCE ONE Stop: 12/16/17 17:01 Vital Signs - 8 hr 12/16/17 12/16/17 12/16/17 05:58 07:17 11:02 Temperature 98.0 F Pulse Rate 72 Respiratory 18 18 20 Rate Blood Pressure 101/56 (mmHg) O2 Sat by Pulse 100 Oximetry 12/16/17 11:03 Temperature Pulse Rate Respiratory 20 Rate Blood Pressure (mmHg) O2 Sat by Pulse Oximetry Oxygen Devices in Use Now: Nasal Cannula Appearance: 67 yo F in nAD, aAOx3 Eyes: No Scleral Icterus, PERRLA Ears/Nose/Mouth/Throat: NL Teeth, Lips, Gums, Mucous Membranes Moist Neck: NL Appearance and Movements; NL JVP, Trachea Midline Respiratory: Symmetrical Chest Expansion and Respiratory Effort Cardiovascular: NL Sounds; No Murmurs; No JVD, RRR Abdominal: NL Sounds; No Tenderness; No Distention Lymphatic: No Cervical Adenopathy Extremities: No Clubbing, Cyanosis, - - b/l leg edema +1, R calf wounds not uncovered today. Skin: - - venous stasis discoloration in L distal LE. Neurological: Alert and Oriented x 3, NL Muscle Strength and Tone, - - deconditioned, needs help with repositioning in bed. Result Diagrams: 12/13/17 05:40 12/15/17 03:30 Additional Lab and Data: . Microbiology and Other Data: Diagnostic Imaging: . EKG Data: . Assess/Plan/Problems-Billing Assessment: Ms. Hutton is a 67 y/o female with multiple complex medical issues, including hx multiple DVTs/PEs, who was admitted with sever sepsis, bilateral lower extremities cellulitis that failed outpatient therapy, clinically improving. - Patient Problems (1) Severe sepsis Comment: - Resolving (no leukocytosis, afebrile, no tachycardia, no tachypnea) - due to bilateral leg cellulitis improving clinically - Blood cultures, no growth to date - Wound culture with Corynebacterium striatum - Continue wound care (see orders) - Vanc -7 days tx completed on 12/15/17 (2) Cellulitis Comment: - No purulence, afebrile, no leukocytosis - Wound culture with Corynebacterium striatum, ? if this is a contaminate - Continue wound care (see orders) (3) Acute respiratory failure Comment: - Resolved, now on room air - Continue bronchodilators as needed (4) CKD (chronic kidney disease) Comment: - Stage 3, appears to be near baseline - Continue to monitor labs (5) Diastolic heart failure Comment: - Hx clinical dx HFpEF, EF 65% - Bilateral LE edema - cont daily weights and Strict I+O's (6) History of pulmonary embolus (PE) Comment: - Continue Warfarin to maintain INR between 2-3 (7) DVT prophylaxis Comment: - Continue Warfarin, INR 2.88 today Status and Disposition: Inpatient. Pt is ready for d/c to [facility]
[2017-12-16] MEDS: oxyCODONE/Acetamin 5/325 MG* TAB PO PRN (14:25)
[2017-12-16] MEDS ORDERED: LORazepam TAB(*) 0.5 MG PO ONE (15:24)
[2017-12-16] MEDS ORDERED: Warfarin TAB(*) 2 MG PO ONE (17:00)
[2017-12-16] MEDS: Pramipexole TAB* 0.5 MG PO SCH (17:57)
[2017-12-16] MEDS: traMADol TAB* 50 MG PO PRN (19:43)
[2017-12-17] MEDS: oxyCODONE/Acetamin 5/325 MG* TAB PO PRN ×2 (00:31→13:11)
[2017-12-17 06:16] LABS: Hematocrit 31 % (35-47); Hemoglobin 10.2 g/dl (12.0-16.0); Mean Corpuscular HGB Conc 34 g/dl (31-36); Mean Corpuscular Hemoglobin 31 pg (27-31); Mean Corpuscular Volume 91 fL (80-97); Mean Platelet Volume 9.7 um3 (7.4-10.4); Platelet Count 106 10^3/ul (150-450); Red Blood Count 3.35 10^6/ul (4.00-5.40); Red Cell Distribution Width 20 % (10.5-15); White Blood Count 5.4 10^3/ul (3.5-10.8)
[2017-12-17 06:25] LABS: INR 3.3 (0.77-1.02)
[2017-12-17 06:32] LABS: EGFR Non-African American 44.7 (>60)
[2017-12-17 06:36] LABS: ABS Basophils 0.1 10^3/ul (0-0.2); ABS Eosinophils 0.3 10^3/ul (0-0.6); ABS Lymphocytes 0.7 10^3/ul (1.0-4.8); ABS Monocytes 0.5 10^3/ul (0-0.8); ABS Neutrophils 3.9 10^3/ul (1.5-7.7); ABS Nucleated RBC 0 10^3/ul; Eosinophil % 5.3 % (0-6); Lymphocyte % 12.1 % (25-47); Nucleated Red Blood Cells % 0
[2017-12-17] MEDS: oxyCODONE SR TAB(*) 20 MG TAB.SR PO SCH (09:14)
[2017-12-17] MEDS: Pregabalin CAP(*) 25 MG PO SCH ×3 (09:14→13:19)
[2017-12-17] MEDS: Collagenase 250 MG/GM OINT* 30 GM TOPICAL SCH (09:15)
[2017-12-17] MEDS: Potassium Chlor TAB* 10 MEQ TAB.ER PO SCH (09:15)
[2017-12-17] MEDS: Furosemide TAB* 20 MG PO SCH (09:15)
[2017-12-17] MEDS: Famotidine TAB* 20 MG PO SCH (09:15)
[2017-12-17] MEDS: PARoxetine HCL TAB* 40 MG PO SCH (09:15)
[2017-12-17 13:20] VITALS: BP 94/51
[2017-12-17] MEDS ORDERED: Warfarin TAB(*) 1 MG PO ONE (17:00)
--- NOTE | 2017-12-18 02:42 | DS ---
CC: Dr. Orlando Price; Dr. Avila, [facility] * HISTORY AND PHYSICAL/DISCHARGE SUMMARY: DATE OF ADMISSION: 12/08/17 DATE OF DISCHARGE: Transfer to swing bed status 12/17/17 Admission to swing bed status to our facility on the same day. DISCHARGE DIAGNOSES: 1. Severe sepsis with hypotension due to right lower extremity cellulitis. 2. Acute respiratory failure due to above. 3. Acute on chronic diastolic congestive heart failure. SECONDARY DIAGNOSES: 1. Morbid obesity. 2. History of breast cancer, status post bilateral mastectomy. 3. 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 4. History of chronic pain. 5. Depression. 6. History of diastolic heart failure. 7. History of ambulatory dysfunction. The patient's ambulation is limited at baseline. She uses a chair that helps the patient to get up from it and makes a few steps at a time with the use of a walker. Once again at baseline, the patient does not ambulate more than a few steps at a time. MEDICATIONS AT DISCHARGE: Include: 1. Lasix 40 mg daily. 2. Lorazepam 0.5 mg at night p.r.n. 3. Zaroxolyn 5 mg daily. 4. Oxycodone SR 20 mg b.i.d. 5. Paxil 40 mg daily. 6. Mirapex 2 mg at bedtime. 7. Lyrica 75 mg 3 times a day. 8. Santyl ointment applied to right lower extremity and wounds with dressings to be changed on a daily basis. 9. Hemorrhoidal ointment on a p.r.n. basis. 10. Heparin flushes to right internal jugular triple lumen IV access. 11. Oxycodone/acetaminophen 5/325 mg 1 tablet every 6 hours p.r.n. 12. Potassium chloride 20 mEq p.o. b.i.d. LABORATORY DATA AND STUDIES PERFORMED DURING THE HOSPITAL STAY: Included: On 12/17/17, sodium of 140, potassium 3.6, chloride 107, carbon dioxide 28, BUN 16 , creatinine 1.21. White blood cell count was 8.54, hemoglobin of 10.2, hematocrit of 31, and platelets of 106. Microbiology study shows corynebacterium striatum positive on wound cultures from the right leg. Blood cultures obtained during the patient's hospital stay were negative. Arterial study of bilateral lower extremities showed normal ankle brachial indices. Transthoracic echocardiogram obtained on 12/09/17 showed mild concentric LVH with normal left ventricular systolic function, EF of 60% to 65% with evidence of borderline pulmonary hypertension. Portable chest x-ray obtained on 12/08/17, impression, "Suspect mild interstitial congestion." HOSPITALIZATION COURSE: The patient is a 67-year-old female with history of obesity and bilateral lower extremity edema, which is chronic as well as ambulatory dysfunction who was transferred to our facility from [facility] where she was treated with Zosyn for right lower extremity cellulitis and wound. She was hypotensive and it appeared that she required higher level of care. She was admitted to the intensive care unit on 12/08/17. She suffered from acute respiratory failure and required oxygen. Her blood cultures did not show significant organism. Her wound cultures were positive for corynebacterium as mentioned above. The patient had problems with IVF and a central triple lumen in the right IJ was placed by Dr. Parsons on 12/09/17. The patient was transiently placed on pressors due to severe sepsis and then started on Lasix infusion for elevated CVP on 12/09/17. The patient has history of chronic renal insufficiency and suffered from acute kidney injury at admission likely for septic ATN. The patient was transferred out of intensive care unit on 12/10/17. During her hospital stay, she completed 7 days of intravenous vancomycin treatment. Wound care saw the patient in consultation and recommended Santyl dressings to right leg wounds. Over the course of patient's hospital stay, it became apparent that the patient is very deconditioned and requires help with ambulation. Although the patient continued to reassure the providers that were taking care of that her ambulation at baseline is very limited, she was not at her baseline by the time of her being medically cleared for discharge. At this point, she reluctantly agreed to be placed in [facility] swing bed status for further rehabilitation prior to discharge home. She is awaiting the swing bed transfer to [place], which is done on 12/20/17. Until that, she is going to be placed on swing bed status at our facility at [facility]. Please note that the patient's systolic pressures had been in the 90s and due to that, most of her hypertensives were held including losartan. She is, on the day of discharge, restarted on her Zaroxolyn as well as her home dose of Lasix. Weights are going to be continued on a daily basis. In regards to the patient's history of PE and DVT, the patient's INR on the day of discharge to swing status was 3.3. Coumadin is going to be continued to be adjusted as per pharmacy protocol. PHYSICAL EXAM: At the time of discharge, blood pressure of 92/47, heart rate of 79 and regular, respiratory rate 16, oxygen saturation of 100% on 2 L of oxygen nasal cannula, temperature 97.9. General: The patient is a very pleasant 67-year-old female who is in no acute distress. Alert, awake and oriented x3. HEENT: Head: Atraumatic, normocephalic. Eyes: Pupils are equal, reactive to light and accommodation. Oropharynx is clear. Mucosa moist. Neck : Supple. No JVD. No bruits bilaterally. Cardiovascular: Regular rate and rhythm. No murmurs. Respiratory: Fine bibasilar crackles, otherwise clear. Abdomen: Soft, nontender. Bowel sounds are present in all 4 quadrants. Extremities: There is venous stasis and edema in bilateral lower extremities at +2. The patient has venous stasis, brownish discoloration of her skin in the left lower extremity. The right lower extremity has what appears to be chronic erythema with several shallow ulcerations above the right ankle. There are at least 3 wounds measuring 2 to 3 cm in diameter, covered with slough and otherwise unstageable, but not very deep, depth approximately 2 to 5 mm. There is no evidence of cellulitis surrounding the area. Neuro evaluation: Speech clear. Cranial nerves II through XII are grossly intact. Motor strength is 5/5 bilaterally. The patient has significant ambulatory dysfunction, which is her baseline. Otherwise, neurologically, the patient is intact. Please note that this is a short summary of the patient's hospital stay. Please refer to further medical records for details. TIME SPENT: Approximately 45 minutes were spent on the patient's discharge. [id number]/CPS #: [id number] MTDD
== END 2017-12-17 15:00 | disposition swing bed (61) | DRG 871 ==
LOC: ICU 17:19 → MEDTELE 12-10 17:46
PROVIDERS: ADMIT Internal Medicine; ATTEND Internal Medicine
PROC: 05HM33Z Insertion of Infusion Device into Right Internal Jugular Vein, Percutaneous Approach (ICD-10-PCS; principal; 2017-12-08)
PROC: B543ZZA Ultrasonography of Right Jugular Veins, Guidance (ICD-10-PCS; 2017-12-08)
PROC: 3E043XZ Introduction of Vasopressor into Central Vein, Percutaneous Approach (ICD-10-PCS; 2017-12-08)
PROC: 30233N1 Transfusion of Nonautologous Red Blood Cells into Peripheral Vein, Percutaneous Approach (ICD-10-PCS; 2017-12-08)
DX: A41.9 Sepsis, unspecified organism (principal); J96.01 Acute respiratory failure with hypoxia; I50.33 Acute on chronic diastolic (congestive) heart failure; N17.0 Acute kidney failure with tubular necrosis; R65.21 Severe sepsis with septic shock; L03.115 Cellulitis of right lower limb; I13.0 Hypertensive heart and chronic kidney disease with heart failure and stage 1 through stage 4 chronic kidney disease, or unspecified chronic kidney disease; N18.4 Chronic kidney disease, stage 4 (severe); L03.116 Cellulitis of left lower limb; I47.2 Ventricular tachycardia; Z68.43 Body mass index [BMI] 50.0-59.9, adult; E66.01 Morbid (severe) obesity due to excess calories; G89.29 Other chronic pain; F32.9 Major depressive disorder, single episode, unspecified; I27.20 Pulmonary hypertension, unspecified; B96.89 Other specified bacterial agents as the cause of diseases classified elsewhere; F17.210 Nicotine dependence, cigarettes, uncomplicated; D64.9 Anemia, unspecified; T68.XXXA Hypothermia, initial encounter; G47.33 Obstructive sleep apnea (adult) (pediatric); E87.6 Hypokalemia; R79.1 Abnormal coagulation profile; R31.9 Hematuria, unspecified; R53.81 Other malaise; E83.42 Hypomagnesemia; S81.801A Unspecified open wound, right lower leg, initial encounter; X58.XXXA Exposure to other specified factors, initial encounter; Y92.9 Unspecified place or not applicable; Z85.3 Personal history of malignant neoplasm of breast; Z90.13 Acquired absence of bilateral breasts and nipples; Z86.718 Personal history of other venous thrombosis and embolism; Z86.711 Personal history of pulmonary embolism; Z88.8 Allergy status to other drugs, medicaments and biological substances
CPT/HCPCS: 36415; 71045; 80048; 80053; 80202; 81003; 81015; 82550; 82803; 83036; 83605; 83735; 83880; 84145; 84443; 84484; 85025; 85027; 85610; 86140; 86850; 86900; 86901; 86922; 87040; 87070; 87086; 87205; 87640; 87641; 93306; 93922; 94660; A9270-GY; C8929; G8978-GP-CM; G8979-GP-CJ; G8987-GO-CL; G8988-GO-CI; J1940; J2405; J2543; J3370; J3475; J3480; P9040

== ENCOUNTER 2017-12-17 14:46 | Inpatient (IN) | payer MEDICARE ==
[2017-12-17] MEDS ORDERED: Al Hydrox/Mg Hydrox/Simet LIQ* 30 ML UDC PO PRN (15:42)
[2017-12-17] MEDS ORDERED: Hemorrhoidal OINT TOPICAL PRN (15:46)
[2017-12-17] MEDS ORDERED: LORazepam TAB(*) 0.5 MG PO PRN (15:46)
[2017-12-17] MEDS ORDERED: Warfarin TAB(*) 1 MG PO ONE (17:00)
[2017-12-17] MEDS: Acetaminophen TAB* 325 MG PO PRN (17:46)
[2017-12-17] MEDS: oxyCODONE SR TAB(*) 20 MG TAB.SR PO SCH (20:41)
[2017-12-17] MEDS: Pregabalin CAP(*) 25 MG PO SCH (20:42)
[2017-12-17] MEDS: Pramipexole TAB* 0.5 MG PO SCH (20:42)
[2017-12-17] MEDS: Potassium Chlor TAB* 20 MEQ TAB.ER PO SCH (20:44)
[2017-12-17] MEDS: oxyCODONE/Acetamin 5/325 MG* TAB PO PRN (23:39)
[2017-12-18 06:59] LABS: INR 2.87 (0.77-1.02)
[2017-12-18] MEDS: Furosemide TAB* 40 MG PO SCH (08:41)
[2017-12-18] MEDS: Metolazone TAB* 5 MG PO SCH (08:41)
[2017-12-18] MEDS: oxyCODONE SR TAB(*) 20 MG TAB.SR PO SCH ×2 (08:41→20:24)
[2017-12-18] MEDS: Pregabalin CAP(*) 25 MG PO SCH ×3 (08:42→20:23)
[2017-12-18] MEDS: PARoxetine HCL TAB* 40 MG PO SCH (08:42)
[2017-12-18] MEDS: Potassium Chlor TAB* 20 MEQ TAB.ER PO SCH ×2 (08:42→20:25)
[2017-12-18] MEDS ORDERED: Losartan TAB* 25 MG PO SCH (09:00)
[2017-12-18] MEDS: oxyCODONE/Acetamin 5/325 MG* TAB PO PRN ×2 (11:53→19:11)
[2017-12-18] MEDS: Collagenase 250 MG/GM OINT* 30 GM TOPICAL SCH (14:17)
[2017-12-18] MEDS: Acetaminophen TAB* 325 MG PO PRN (16:49)
[2017-12-18] MEDS ORDERED: Warfarin TAB(*) 1 MG PO ONE (17:00)
[2017-12-18] MEDS: Pramipexole TAB* 0.5 MG PO SCH (20:22)
[2017-12-19 06:36] LABS: INR 2.89 (0.77-1.02)
[2017-12-19 06:48] LABS: EGFR Non-African American 41.5 (>60)
[2017-12-19] MEDS: PARoxetine HCL TAB* 40 MG PO SCH (08:12)
[2017-12-19] MEDS: Potassium Chlor TAB* 20 MEQ TAB.ER PO SCH ×2 (08:12→21:20)
[2017-12-19] MEDS: Collagenase 250 MG/GM OINT* 30 GM TOPICAL SCH (08:12)
[2017-12-19] MEDS: Pregabalin CAP(*) 25 MG PO SCH ×3 (08:13→22:19)
[2017-12-19] MEDS: Metolazone TAB* 5 MG PO SCH (08:13)
[2017-12-19] MEDS: oxyCODONE SR TAB(*) 20 MG TAB.SR PO SCH ×2 (08:14→21:19)
[2017-12-19] MEDS: Furosemide TAB* 40 MG PO SCH (08:14)
[2017-12-19] MEDS ORDERED: Polyethylene Glycol 3350* 17 GM PACKET PO STA (08:47)
[2017-12-19] MEDS: Docusate CAP* 100 MG PO SCH (09:53)
[2017-12-19] MEDS: Senna TAB PO SCH (09:53)
[2017-12-19] MEDS: oxyCODONE/Acetamin 5/325 MG* TAB PO PRN (16:41)
[2017-12-19] MEDS ORDERED: Warfarin TAB(*) 3 MG PO ONE (17:00)
[2017-12-19] MEDS ORDERED: diPHENhydraMINE PO* 25 MG PO ONE (20:08)
[2017-12-19] MEDS: Pramipexole TAB* 0.5 MG PO SCH (21:21)
[2017-12-20 05:47] LABS: INR 2.79 (0.77-1.02)
[2017-12-20] MEDS: Pregabalin CAP(*) 25 MG PO SCH ×2 (09:17→13:09)
[2017-12-20] MEDS: oxyCODONE SR TAB(*) 20 MG TAB.SR PO SCH (09:17)
[2017-12-20] MEDS: Docusate CAP* 100 MG PO SCH (09:18)
[2017-12-20] MEDS: Potassium Chlor TAB* 20 MEQ TAB.ER PO SCH (09:18)
[2017-12-20] MEDS: Furosemide TAB* 40 MG PO SCH (09:18)
[2017-12-20] MEDS: PARoxetine HCL TAB* 40 MG PO SCH (09:18)
[2017-12-20] MEDS: Metolazone TAB* 5 MG PO SCH (09:18)
[2017-12-20] MEDS: Senna TAB PO SCH (09:18)
[2017-12-20 11:24] VITALS: BP 83/49
[2017-12-20] MEDS: Collagenase 250 MG/GM OINT* 30 GM TOPICAL SCH (12:50)
[2017-12-20] MEDS: oxyCODONE/Acetamin 5/325 MG* TAB PO PRN (13:08)
--- NOTE | 2017-12-20 14:05 | DS ---
CC: Dr. Salinas; Dr. Price; Dr. Avila, [facility] * ADDENDUM TO DISCHARGE SUMMARY DICTATED BY DR. SAMARA SALINAS ON 12/17/2017 DATE OF ADMISSION: 12/18/2017. DATE OF DISCHARGE: 12/20/2017. This is an addendum to the discharge summary dictated by Dr. Salinas after the patient was placed in a swing status while awaiting a bed in the [facility]. ADDITION TO DISCHARGE DIAGNOSES: Constipation, likely iatrogenic. ADDENDUM TO HISTORY OF PRESENT ILLNESS: After the patient was placed to swing bed status on 12/17/2017, the patient has been doing well per nursing staff and was complaining of some constipation on 12/19/2017 and was give MiraLax as well as Senna and Colace, prompting patient to have at least one good bowel movement. Other than this, she has had an unremarkable stay since she was placed on swing status and currently the patient had a bed waiting for her at [facility]. REVIEW OF SYSTEMS: The patient denied any current headaches, dizziness, fevers , chills, nausea, vomiting, chest pain, shortness of breath, increased cough nor sputum production, abdominal pain, diarrhea, constipation, pain and/or increased frequency on urination, myalgias or arthralgias, throat pain or new skin lesions. The rest of the 14 point review of systems are otherwise unremarkable. PHYSICAL EXAMINATION: General appearance: The patient is awake, alert, and oriented times three. No in acute distress. The patient is severely obese. Vital Signs: The most recent blood pressure of record 83/49 from 100/60 from 82 /44, please note that this is the patient's baseline blood pressure and in fact was 87/48 and 90/50 on the , the same day that she was placed on a swing status. 16 per minute respiratory rate, saturating at 93 percent room air, 79 beats per minute heart rate. HEENT: Normocephalic, atraumatic. PERRLA. Extraocular muscles intact. Negative for icterus. Moist oral mucosa. Negative throat erythema. Neck: Soft, subtle with no cervical lymphadenopathy. Difficult to assess JVD given her body habitus. Heart: S1, S2 within normal limits. Regular rate and rhythm. No murmurs, rubs or gallops. Chest: Clear to auscultation bilaterally. Good air entry. No wheezes, rales or rhonchi. Abdomen: Soft, nondistended, nontender. Normoactive bowel sounds times four. Extremities: No cyanosis or clubbing. There are signs of venous stasis and edema in the bilateral lower extremities with edema of +2. Psychiatric: No active psychosis, depression, suicidal nor homicidal ideation. The total time spent evaluating the patient, reviewing pertinent data and appropriate documentation was less than 30 minutes. [id number]/[facility] #: [id number] [facility]
== END 2017-12-20 15:00 | DRG 603 ==
LOC: MEDTELE 15:01 → MED 16:21
PROVIDERS: ADMIT Internal Medicine; ATTEND Student in an Organized Health Care Education/Training Program
DX: L03.115 Cellulitis of right lower limb (principal); I50.32 Chronic diastolic (congestive) heart failure; Z68.43 Body mass index [BMI] 50.0-59.9, adult; L97.321 Non-pressure chronic ulcer of left ankle limited to breakdown of skin; L97.311 Non-pressure chronic ulcer of right ankle limited to breakdown of skin; I95.9 Hypotension, unspecified; E66.01 Morbid (severe) obesity due to excess calories; N18.9 Chronic kidney disease, unspecified; G89.29 Other chronic pain; F32.9 Major depressive disorder, single episode, unspecified; Z85.3 Personal history of malignant neoplasm of breast; Z86.718 Personal history of other venous thrombosis and embolism; Z79.01 Long term (current) use of anticoagulants; Z86.711 Personal history of pulmonary embolism; Z79.891 Long term (current) use of opiate analgesic; Z79.899 Other long term (current) drug therapy
CPT/HCPCS: 36415; 80048; 85610; A9270-GY

== ENCOUNTER 2018-02-05 12:57 | Inpatient (IN) | payer MEDICARE ==
[2018-02-05] MEDS ORDERED: Ondansetron INJ* 2 MG/ML VIAL IV PRN (14:32)
[2018-02-05] MEDS ORDERED: Acetaminophen TAB* 325 MG PO PRN (14:32)
[2018-02-05] MEDS ORDERED: Morphine VIAL* 4 MG/ML VIAL (1 ml vial) IV PRN (14:32)
[2018-02-05] MEDS ORDERED: LORazepam TAB(*) 0.5 MG PO PRN (15:26)
[2018-02-05] MEDS ORDERED: Melatonin 3 MG TAB PO PRN (15:26)
[2018-02-05] MEDS ORDERED: Hemorrhoidal OINT TOPICAL PRN (15:26)
[2018-02-05] MEDS ORDERED: oxyCODONE/Acetamin 5/325 MG* TAB PO PRN (15:26)
[2018-02-05 15:31] LABS: ABS Basophils 0.1 10^3/ul (0-0.2); ABS Eosinophils 0.1 10^3/ul (0-0.6); ABS Lymphocytes 0.8 10^3/ul (1.0-4.8); ABS Monocytes 0.7 10^3/ul (0-0.8); ABS Neutrophils 8.5 10^3/ul (1.5-7.7); ABS Nucleated RBC 0 10^3/ul; Eosinophil % 0.9 % (0-6); Hematocrit 41 % (35-47); Hemoglobin 13.4 g/dl (12.0-16.0); Lymphocyte % 7.8 % (25-47); Mean Corpuscular HGB Conc 33 g/dl (31-36); Mean Corpuscular Hemoglobin 30 pg (27-31); Mean Corpuscular Volume 93 fL (80-97); Mean Platelet Volume 9.2 um3 (7.4-10.4); Nucleated Red Blood Cells % 0.1; Platelet Count 185 10^3/ul (150-450); Red Blood Count 4.43 10^6/ul (4.00-5.40); Red Cell Distribution Width 18 % (10.5-15); White Blood Count 10.1 10^3/ul (3.5-10.8)
[2018-02-05 15:37] LABS: INR 2.63 (0.77-1.02)
[2018-02-05 15:49] LABS: EGFR Non-African American 46.9 (>60)
[2018-02-05] MEDS: Aspirin 81 mg CHEW TAB* 81 MG TAB.CHEW PO SCH (15:50)
[2018-02-05] MEDS: Metoprolol Tartrate TAB* 25 MG PO SCH ×2 (15:50→21:50)
[2018-02-05] MEDS: Pregabalin CAP(*) 25 MG PO SCH ×2 (15:50→21:50)
[2018-02-05] MEDS ORDERED: Furosemide TAB* 40 MG PO SCH (16:00)
[2018-02-05] MEDS ORDERED: Furosemide IV* 10 MG/ML VIAL (40 MG) IV SLOW PU ONE ×2 (16:02→17:26)
[2018-02-05] MEDS: cefTRIAXone(*) 1 GM in NS 0.9% 50 ML* 50 ML IVPB SCH (16:07)
[2018-02-05] MEDS ORDERED: Phytonadione Oral Solution* 5 MG/25 ML UDC PO ONE (16:07)
[2018-02-05] MEDS: NF:Umeclidin/Vilant 62.5 MDI 62.5/25 mcg 14 INH ELLIPTA DEVICE INH SCH (16:11)
--- NOTE | 2018-02-05 16:13 | PN ---
Hospitalist Progress Note Date of Service: 02/05/18 Addendum to H/P (dictated): Patient seen with Dr. Grant. Patient is in acute on chronic diastolic heart failure, as evidenced by JVD, expiratory rales, and dyspnea. She has acute hypoxic respiratory failure. Daily weights ordered. Patient given 80 mg furosemide total (40 mg PO and 40 mg IV). CXR pending. Continue oxygen support. Consider george catheter to better monitor urine output; patient had concern for nitrates, leukocyte esterase, and 4+ bacteria on UA at [place]. Will continue Ceftriaxone for presumed UTI. Also given 2.5 mg Vitamin K, as INR is 2.63 and goal is </= 1.5 for cardiac cath. Recheck INR tomorrow. Start heparin gtt when INR <2.0
[2018-02-05] MEDS ORDERED: Furosemide IV* 10 MG/ML VIAL (40 MG) ONE (16:18)
[2018-02-05] MEDS: Pramipexole TAB* 0.5 MG PO SCH (16:33)
[2018-02-05] MEDS: Nystatin TOP POWDER* 15 GM BTL TOPICAL SCH ×2 (16:33→21:53)
[2018-02-05] MEDS: Moisturizing CREAM* 120 GM JAR TOPICAL SCH ×2 (16:33→21:53)
--- NOTE | 2018-02-05 16:51 | RAD ---
Indication: Dyspnea, hypoxia. Single frontal view of the chest performed at 1615 hours was reviewed. Comparison is made with previous exam dated December 08, 2017. Cardiomegaly is noted. There appears to be a large hiatal hernia noted. Interstitial edema consistent with CHF is noted. IMPRESSION: CARDIOMEGALY. INTERSTITIAL EDEMA CONSISTENT WITH CHF. THERE APPEARS TO BE A LARGE HIATAL HERNIA NOTED.
[2018-02-05] MEDS ORDERED: Atorvastatin* 80 MG TAB PO SCH (17:00)
[2018-02-05] MEDS ORDERED: Albuterol/Ipratropium NEB.SOL* Albuterol 2.5 MG/Ipratropium 0.5 MG 3 ML INH ONE (17:27)
--- NOTE | 2018-02-05 18:07 | OP ---
Operative Report - Blank - Operative Report Date of Operation: 02/05/18 Note: Central Venous Catheter (CVC, Central Line) Placement Date: 02/05/18 Time: 600pm Indication: Hemodynamic monitoring/Intravenous access Attending: Mishel Nolasco time-out was completed verifying correct patient, procedure, site, positioning , and special equipment if applicable. The patient was placed in a dependent position appropriate for central line placement based on the vein to be cannulated. The patients right neck was prepped and draped in sterile fashion. 1% Lidocaine was used to anesthetize the surrounding skin area. A triple lumen 7 -[place]izen [place] catheter was introduced into the the internal jugular vein using the Seldinger technique and under ultrasound guidance. The catheter was threaded smoothly over the guide wire and appropriate blood return was obtained. Each lumen of the catheter was evacuated of air and flushed with sterile saline. The catheter was then sutured in place to the skin and a sterile dressing applied. Perfusion to the extremity distal to the point of catheter insertion was checked and found to be adequate. Estimated Blood Loss: None The patient tolerated the procedure well and there were no complications.
--- NOTE | 2018-02-05 18:39 | PN ---
Hospitalist Progress Note Date of Service: 02/05/18 Called to patient's bedside due to concern for worsening hypoxia - patient with O2 sats in 80s while on 15L of O2. ABG ordered. Patents Examiner consult requested; patient received IJ, as she lacked access. Patient placed on maximal vapotherm therapy with minimal change; escalated to BiPAP therapy with good effect. Dyspnea and hypoxia has improved; will continue close monitoring. NPO status at this time, given respiratory needs. Continue to evaluate.
[2018-02-05] MEDS ORDERED: Levalbuterol 1.25MG/0.5ML NEB INH SCH (19:00)
[2018-02-05] MEDS ORDERED: Levalbuterol 1.25MG/0.5ML NEB INH PRN (19:28)
--- NOTE | 2018-02-05 20:02 | CONS ---
CC: Dr. Evan Avila CARDIOLOGY CONSULTATION: DATE OF CONSULTATION: 02/05/18 REFERRING PHYSICIAN: Tiago Grant MD REASON FOR CARDIOLOGY CONSULTATION: Non-Q wave NC. HISTORY OF PRESENT ILLNESS: The patient notes that she had new chest pain on night (today is Wednesday of the same week), which kept her up at night and continued during the next day which was yesterday. She then went to the [facility] Emergency Room yesterday and was admitted to their hospital where she was found to have new T wave inversions anteriorly and elevated troponin of 0.8 so she has been transferred to [facility]. Currently, the patient is pain- free. She states she has never had chest pain in the past. PAST MEDICAL HISTORY: Includes: She had severe sepsis with hypotension due to right lower extremity cellulitis in November 2017 with acute respiratory failure due to that. She also had acute on chronic diastolic congestive heart failure, morbid obesity, breast cancer, multiple DVTs and PE, on chronic anticoagulation, history of chronic pain, depression, history of ambulatory dysfunction because of prior accident. She is not able to walk because of chronic back and leg pain. MEDICATIONS: Outpatient medication list is pending at the time of this dictation, which we are trying to obtain. The patient was transferred from [facility] today. ALLERGIES TO MEDICATIONS: Are IODINE, BETADINE and HORMONES. FAMILY HISTORY: Negative for cardiac disease. Her father with myelodysplasia. There is a family history of stroke in her mother and diabetes in maternal aunt. SOCIAL HISTORY: She smokes 5 cigarettes per day and has smoked for many years. She does not abuse alcohol. Never used illicit drugs. She is and lives with her dog. 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 REVIEW OF SYSTEMS: She does not able to do regular exercise because of her chronic pain. Other review of systems, she denies history of stroke. She has had prior cancer treated in 1999. She denies vomiting of blood, coughing of blood, but has noticed some blood in her stool, which can be sizeable and states she has not had a colonoscopy for many years. She feels the blood in her stool is from her hemorrhoids and Coumadin use. She denies renal calculi. She does have cholelithiasis, apparently asymptomatic. She denies asthma. She has emphysema. She has a history of pneumonia in the 1970s, unclear if she was hospitalized. She denies tuberculosis. She has a history of sleep apnea for which she uses CPAP intermittently. She denies diabetes, hypertension, prior NC , congestive heart failure, cardiac surgery. No clear palpitations. Further review of systems unable to obtain as the patient's states she is too tired as she has not slept overnight. PHYSICAL EXAMINATION: Height 5 feet, weight 225 pounds. Temperature 98.5 degrees Fahrenheit, blood pressure 116/79, O2 saturation 93%. On general exam, she is an obese lady, in no acute distress, lying fairly flat on the ICU bed. HEENT shows the cranium is normocephalic and atraumatic. She has moist mucosal membranes. Neck veins unable to assess due to obesity. No bruits. Visible skin is warm and perfused. Affect is appropriate. She appears oriented. Unable to assess her kyphoscoliosis. Lungs are clear to auscultation anteriorly. No wheezes. Cardiac Exam: S1, S2. Regular rate. No significant murmurs, rubs, or gallops. PMI is nondisplaced. Abdomen: Soft, obese, appears benign. Extremities: 1 to 2+ peripheral edema with chronic brawny changes. Pulses are diminished in the lower extremities but her lower extremities do appear perfused. DIAGNOSTIC STUDIES/LAB DATA: The patient had transthoracic echocardiogram on , which showed normal left ventricular ejection fraction 60 to 65% with moderate left atrial dilatation mildly reduced right ventricular function, mild aortic insufficiency, mild nonrheumatic mitral stenosis, borderline pulmonary hypertension, mild dilatation of the ascending aorta and aortic root. Labs are pending at our hospital. It was reported to me that her troponin was 0.8 by the transferring physician, Dr. Nye. The patient had CT of her chest per Dr. Nye, which did not show PEs. She has had several EKGs at [facility] including on 02/05/18 at 1 a.m., which shows sinus rhythm with questionable old inferior infarct with anterior T wave inversions that are reportedly new. IMPRESSION: Ms. Hutton is a 67-year-old woman with several cardiac risk factors including cigarette smoking, multiple pulmonary emboli, obesity, now admitted with non-Q wave myocardial infarction, consider LAD stenosis by EKG analysis. She is pain-free at this time. RECOMMENDATIONS: 1. We will plan for early invasive strategy with cardiac catheterization once INR less than 1.5 and this issue of potential GI bleeding has been evaluated. We would hold Coumadin for now and place her on heparin drip once INR less than 2 until troponins are peaked, I would als recommend she start aspirin, beta- jesus, statin therapy. 2. Echocardiogram. Other management per the hospitalist medicine service and I have discussed the case with Dr. Tiago Grant of . The above was discussed with the patient and her sister and they are in agreement with these recommendations. Dear Dr. Grant, many thanks for this kind cardiovascular consultation opportunity. Please do not hesitate to contact me if you have any questions or concerns regarding the patient's cardiovascular consultative care. [id number]/[facility] #: [id number] MTDSandy
--- NOTE | 2018-02-05 20:34 | HP ---
CC: Dr. Price* MEDICINE HISTORY AND PHYSICAL: DATE OF ADMISSION: 02/05/18 PROVIDER: Rod Gaming NP ATTENDING PHYSICIAN: Dr. Tiago Grant* (dictated by Rod Gaming NP). CONSULTING ONE PIECE EXPANSION MAKER HAND: Dr. Jose David Blood. PRIMARY CARE PHYSICIAN: Dr. Orlando Price. CHIEF COMPLAINT: NSTEMI. HISTORY OF PRESENT ILLNESS: Ms. Hutton is a 67-year-old female, who was transferred from [facility] today for further cardiac evaluation after being admitted on 02/05/18 with concern for shortness of breath. She initially presented to the hospital on 02/04/18 with concern for shortness of breath as well as left shoulder pain, chest pain, dyspnea with nausea and diarrhea. Ms. Hutton states that her symptoms started on and persisted until Wednesday where she felt prompted to go into the ER for further evaluation. Per the records from [place], her ER evaluation showed an elevated troponin at 0.876 and evidence of a urinary tract infection. She did have a CT of the chest that did not show a PE, but did show significant pulmonary hypertension. Of note, she has had previous history of PE and DVT. She had a CT of her abdomen, which showed gallstones that did not look impacted and the gallbladder did not appear inflamed. However, she did have an EKG that showed concern for significant changes, specifically T-wave inversions in leads V2 through V6 that were new, but persistent through 3 followup EKGs that she had over a 6-hour period. She is reported to still have dyspnea, but was able to have resolution of the chest pain and abdominal pain. Currently, she is still denying chest pain and abdominal pain and states that this has since subsided. Due to these findings, the hospital team at [place] contact Cardiology here and asked for transfer for further evaluation. Ms. Hutton is currently lying in the ICU bed. She is able to talk in complete sentences, but she does become notably dyspneic with extended conversation. I do note that in the record she was on 2 L of oxygen at [place], but appears to be on 6 L of oxygen here currently in the ICU. She is tachycardic, but again is denying any chest pain currently. She feels short of breath with conversation, but does improve with rest. She reports feeling cold a few days ago when she presented to the ER, but denies any further fever or chills. She does endorse fatigue. She does report a history of diastolic heart failure with occasional fluid overload. for which she does take furosemide and Zaroxolyn. She states that she plays around her Zaroxolyn dosing at home based on her symptoms, but does not take it every day. She does also report that she has had intermittent tarry stools with her most recent one yesterday. She states that it was of hard consistency and she notes that there was bright red blood per rectum with blood noted in the toilet bowl. She does endorse having hemorrhoids. Again, she currently denies abdominal pain, nausea, vomiting. She reports chronic neuropathic pain, restless legs syndrome. She denies any headache, dizziness, loss of consciousness. She does endorse chronic venous stasis dermatitis to the legs, but states that she had some wound infections previously to the legs, but they have since improved. She does also report some pain below the pannus area, which is chronic and secondary to yeast. No other acute concerns expressed. PAST MEDICAL HISTORY: Includes: 1. History of breast cancer, status post bilateral mastectomy. 2. History of PE. 3. History of DVT. 4. Diastolic heart failure. 5. Hypertension. 6. Chronic pain. 7. Restless legs syndrome. 8. Depression. 9. Nicotine dependence. 10. Venous stasis dermatitis. 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 Please also note that the patient has a previous diagnosis of respiratory failure from November, but states that she was not on home oxygen prior to admission. HOME MEDICATIONS: 1. Warfarin 1 to 2 mg daily as directed. 2. Anoro Ellipta 1 puff inhaled daily. 3. Percocet 5/325 one tab q.6 hours p.r.n. 4. OxyContin SR 20 mg b.i.d. 5. Senna 1 tab daily. 6. Pregabalin 75 mg t.i.d. 7. Pramipexole 2 mg q.a.m. 8. Potassium chloride 20 mEq b.i.d. 9. Paroxetine 40 mg q.a.m. 10. Zaroxolyn 5 mg daily p.r.n. 11. Melatonin 3 mg at bedtime p.r.n. 12. Lorazepam 0.5 mg at bedtime p.r.n. 13. Hemorrhoid ointment apply topically q.6 hours p.r.n. 14. Furosemide 40 mg daily. 15. Docusate 100 mg daily. ALLERGIES: Include POVIDONE IODINE/BETADINE and FLEXERIL. FAMILY HISTORY: Reviewed. Records show a father with history of MDS and a mother who of old age. SOCIAL HISTORY: She is a current smoker. She states that she is down to 5 cigarettes a day. She reports rare alcohol use. She denies any recreational drug use. She does live alone. Her sister, Elaine Abel, is her surrogate decision maker and can be reached at [phone]. REVIEW OF SYSTEMS: An 11-point review of systems was completed. All pertinent positives and negatives as per HPI. PHYSICAL EXAMINATION VITAL SIGNS: Temperature 98.5, heart rate 120, respiratory rate 22, blood pressure 117/89, and O2 saturation is 95% on 6 L nasal cannula. HEENT: Head is atraumatic, normocephalic. Face is symmetrical. Pupils are equal, round, and reactive to light. Extraocular movements are intact. Oral mucosa is somewhat dry. There are no oropharyngeal exudates or erythema noted. No mouth lesions noted. NECK: Supple. No lymphadenopathy appreciated. I do note JVD. LUNGS: There is fair air movement throughout all lung cornejo. I do note expiratory rales with right greater than left, particularly in the bilateral bases. Faint expiratory wheezing noted. She has no cough. Respiratory effort is somewhat labored. CARDIAC: Normal S1 and S2 heart sounds. Rate is tachycardic. I did not appreciate any murmurs, rubs, or gallops. There is 1 to 2+ peripheral lower extremity edema. Distal pulses are 1+ and symmetrical bilaterally to the lower extremities. ABDOMEN: Soft, obese, nontender. Bowel sounds are normoactive. MUSCULOSKELETAL: She is actively moving all extremities. I do not note any clubbing or cyanosis. NEURO: She is alert. She is oriented x3. She answers appropriately. No focal deficits noted. Speech is clear and fluent. PSYCH: She does not appear anxious or depressed. Affect is appropriate. SKIN: There are chronic venous stasis dermatitis changes to the bilateral lower extremities. I do note a dry ulceration to the right lower extremity on the medial portion of her calf. There is no surrounding erythema or exudate to suggest active infection. Skin to the lower extremities is dry and flaky, but there are no open wounds noted. DIAGNOSTIC STUDIES/LAB DATA: Reviewed from [facility]. No INR was found. I do note that she had labs drawn yesterday, which showed white count of 5.62, hemoglobin 12.6, hematocrit 38.7, platelets 159. CMP: Sodium 144, potassium 3.4, chloride 108, CO2 of 24, BUN 15, creatinine 1.3. BNP 547. Troponin is 0.569. Peak troponin was noted to be 0.895. EKG as per above. Chest x-ray showed concern for chronic vascular congestion, but no focal infiltrates noted per [facility] notes. CT of the chest and abdomen as per HPI. Old medical records were reviewed. 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 She will be admitted to the ICU for further evaluation and management. Plan is as follows: 1. Non-ST elevation myocardial infarction. Ms. Hutton has already been seen by Cardiology and we appreciate the recommendations. She has been started on a beta- jesus, statin, aspirin, and will be ordered an echocardiogram tomorrow with a plan to have a cardiac catheterization on Wednesday. We will check her INR now and if it is less than 2, then we can start her heparin drip. If her INR remains above 2, we will recheck tomorrow and start her heparin drip once below 2. We will also check a lipid profile and hemoglobin A1c. She is currently without chest pain, but she is ordered p.r.n. morphine should her chest pain return and we will continue to monitor her closely. 2. Tachycardia. The patient is currently tachycardic. I am unsure what is driving this. She does appear to be somewhat dry; however, she does also have concern for pulmonary vascular congestion with dyspnea. She will be started on metoprolol tartrate and will be started on a low dose currently and this can be titrated upward based on her response and blood pressure. 3. Acute hypoxic respiratory failure. I am concerned mostly that she is now requiring 6 L of oxygen, which she was previously on 2 L of oxygen and she is not chronically on oxygen. Currently, she is managing with the 6 L of oxygen, but we will pay close attention to her mentation and O2 saturation and oxygen needs. I will repeat the chest x-ray now just to see what that looks like in comparison to previously and continue to follow closely. Currently, we will give her p.o. dose of furosemide as she has not received that earlier today and monitor. 4. History of chronic diastolic heart failure. She does appear to be in acute exacerbation;We will continue her furosemide. I am going to hold her Zaroxolyn currently, but this could be added back on as needed. 5. History of hypertension. Currently is normotensive with some of her pressures dipping into the low 100s. We will continue to monitor. She has been started on metoprolol given her non-ST elevation myocardial infarction. At home, she is only on furosemide. We will continue to make medication adjustments for appropriate blood pressure control. 6. History of deep venous thromboses and pulmonary embolism. Again, we will be holding her Coumadin as we will be anticoagulating her with heparin given her need for a cardiac cath. INR is pending. 7. History of chronic pain. Continue Lyrica and Mirapex as well as her OxyContin and Percocet with directions to hold for sedation. 8. History of depression. Continue Paxil. 9. Concern for bloody stools. She is ordered a stool occult. We will also check an H and H now. We will continue to monitor for any concerns for bloody stools. She reports a negative previous colonoscopy evaluation. She is adamant about not having any more colonoscopies. For now, I think it is reasonable to check a stool occult and monitor her H and H and adjust our plan based on the findings. She does have a known history of hemorrhoids, so some of this blood may be pertaining to the hemorrhoids. 10. FEN: She is ordered a heart-healthy, no caffeine diet. 11. DVT prophylaxis: Again, she will be ordered a heparin drip. 12. Code status: She is a full code. TIME SPENT: Approximately 65 minutes was spent on this admission with more than half that time spent [id number] with the patient obtaining history and physical, performing physical examination, and reviewing the plan of care. Plan of care was also reviewed with my attending, Dr. Grant, who was in agreement. ROD GAMING, SUPERINTENDENT REFUSE DISPOSAL [id number]/CPS #: [id number] THANIA
[2018-02-05] MEDS ORDERED: oxyCODONE SR TAB(*) 20 MG TAB.SR PO SCH (21:00)
[2018-02-05] MEDS: Potassium Chlor TAB* 20 MEQ TAB.ER PO SCH ×2 (21:50→22:46)
[2018-02-05] MEDS: oxyCODONE SR TAB(*) 10 MG TAB.SR PO SCH (21:50)
[2018-02-06] MEDS: Moisturizing CREAM* 120 GM JAR TOPICAL SCH ×3 (03:32→13:33)
[2018-02-06] MEDS ORDERED: NS 0.9% 1000 ML* 250 ML IV SCH (04:00)
[2018-02-06 04:46] LABS: ABS Basophils 0.1 10^3/ul (0-0.2); ABS Eosinophils 0 10^3/ul (0-0.6); ABS Lymphocytes 0.9 10^3/ul (1.0-4.8); ABS Monocytes 0.7 10^3/ul (0-0.8); ABS Neutrophils 4.8 10^3/ul (1.5-7.7); ABS Nucleated RBC 0 10^3/ul; Eosinophil % 0.5 % (0-6); Hematocrit 35 % (35-47); Hemoglobin 11.5 g/dl (12.0-16.0); Lymphocyte % 13.6 % (25-47); Mean Corpuscular HGB Conc 33 g/dl (31-36); Mean Corpuscular Hemoglobin 30 pg (27-31); Mean Corpuscular Volume 93 fL (80-97); Mean Platelet Volume 9.3 um3 (7.4-10.4); Nucleated Red Blood Cells % 0.1; Platelet Count 163 10^3/ul (150-450); Red Blood Count 3.81 10^6/ul (4.00-5.40); Red Cell Distribution Width 18 % (10.5-15); White Blood Count 6.4 10^3/ul (3.5-10.8)
[2018-02-06 04:54] LABS: INR 2.83 (0.77-1.02)
[2018-02-06 05:03] LABS: EGFR Non-African American 40.7 (>60)
[2018-02-06] MEDS ORDERED: NS 0.9% 500 ML* 500 ML IV ONE (05:30)
[2018-02-06] MEDS ORDERED: Phytonadione Oral Solution* 5 MG/25 ML UDC PO ONE (06:53)
--- NOTE | 2018-02-06 07:50 | RAD ---
Indication: Triple lumen catheter placement. Single frontal view of the chest performed at 1849 hours was reviewed. Comparison is made with previous exam dated February 05, 2018. Cardiomegaly is noted. Interstitial edema consistent with CHF is noted. Right-sided internal jugular vein catheter appears in place. No alveolar consolidation is noted. IMPRESSION: CARDIOMEGALY WITH INTERSTITIAL EDEMA AND CHF. CENTRAL LINE IN THE SUPERIOR VENA CAVA. NO PNEUMOTHORAX IS NOTED. R1
[2018-02-06] MEDS: KCL 10 MEQ/50 ML IVPREMIX* 10 MEQ/50 ML BAG IV SCH ×3 (07:51→10:38)
[2018-02-06] MEDS: oxyCODONE SR TAB(*) 10 MG TAB.SR PO SCH (07:55)
[2018-02-06] MEDS: Aspirin 81 mg CHEW TAB* 81 MG TAB.CHEW PO SCH (07:56)
[2018-02-06] MEDS: Potassium Chlor TAB* 20 MEQ TAB.ER PO SCH (07:56)
[2018-02-06] MEDS: Nystatin TOP POWDER* 15 GM BTL TOPICAL SCH ×2 (07:58→13:32)
[2018-02-06] MEDS: Pramipexole TAB* 0.5 MG PO SCH (07:58)
[2018-02-06] MEDS ORDERED: Norepinephrine 16MCG/ML IVPRE* 4,000 MCG/250 ML BAG IV SCH (08:00)
[2018-02-06] MEDS ORDERED: Furosemide IV* 10 MG/ML VIAL (40 MG) IV SLOW PU ONE (08:00)
--- NOTE | 2018-02-06 08:20 | CONSULT ---
Consult Consult: PCCM Consult CC: CHF/Hypotension HPI: 67F with htn, diasolic chf, depression, chronic pain, h/o dvt/pe on coumadin, h/o breast ca s/p mastectomy, copd presents from [facility] with chest pain and shortness of breath. She was found to have new twi on her ekg, and an elevated troponin. She was transferred to [facility] for evaluation for [facility]. On arrival to ICU she was markedly hypoxic and her cxr was suggestive of CHF. She was started on bipap and given lasix. Overnight she became hypotensive and the night team started small boluses of iv fluids. The patient currently denies chest pain but remains on bipap and requiring supplemental o2 to maintain adequate oxygenation. UA at the outside hospital was positive. ROS - as per HPI PMHx - htn, diasolic chf, depression, chronic pain, h/o dvt/pe on coumadin, h/o breast ca PSHx - s/p mastectomy All - iodine, hormones, flexeril FamHx - mds SocHx - +smoker, rare etoh, no drugs PE Vital Signs: Temp Pulse Resp BP Pulse Ox 97.5 F 61 19 97/60 95 02/06/18 07:58 02/06/18 06:04 02/06/18 07:55 02/06/18 06:04 02/06/18 06:04 Gen - obese, on bipap HEENT - ncat, eomi, perrl neck - no thyromegaly cv - s1/s2, no murmur lungs - dec bas bilaterally abd - soft, nt ext - +edema Neuro - non-focal Labs Laboratory Results - last 24 hr 02/05/18 02/05/18 02/05/18 15:20 15:20 15:20 WBC 10.1 RBC 4.43 Hgb 13.4 Hct 41 MCV 93 MCH 30 MCHC 33 RDW 18 H Plt Count 185 MPV 9.2 Neut % (Auto) 83.9 H Lymph % (Auto) 7.8 L [place] % (Auto) 6.8 Eos % (Auto) 0.9 Baso % (Auto) 0.6 Absolute Neuts (auto) 8.5 H Absolute Lymphs (auto) 0.8 L Absolute Monos (auto) 0.7 Absolute Eos (auto) 0.1 Absolute Basos (auto) 0.1 Absolute Nucleated RBC 0 Nucleated RBC % 0.1 INR (Anticoag Therapy) Patient Temperature ABG pH ABG pH (Temp Correct) ABG pCO2 ABG pCO2 (Temp Corrct ABG pO2 ABG pO2 (Temp Correct ABG HCO3 ABG O2 Saturation ABG Base Excess Respiration Rate O2 Delivery Device Ventilator Type Vent Mode FiO2 Inspiratory Time PEEP Pressure Support Pressure Control EPAP IPAP BiPAP Sodium 141 Potassium 3.8 Chloride 109 Carbon Dioxide 26 Anion Gap 6 BUN 15 Creatinine 1.16 H Est GFR ( Amer) 56.7 Est GFR (Non-Af Amer) 46.9 BUN/Creatinine Ratio 12.9 Glucose 111 H Hemoglobin A1c Lactic Acid 1.8 Calcium 9.1 Magnesium 2.1 Total Bilirubin 0.90 AST 22 ALT 12 Alkaline Phosphatase 116 H Troponin I 0.46 H* C-Reactive Protein 19.96 H Total Protein 6.7 Albumin 3.6 Globulin 3.1 Albumin/Globulin Ratio 1.2 Triglycerides Cholesterol LDL Cholesterol HDL Cholesterol 02/05/18 02/05/18 02/05/18 15:20 17:40 19:10 WBC RBC Hgb Hct MCV MCH MCHC RDW Plt Count MPV Neut % (Auto) Lymph % (Auto) [place] % (Auto) Eos % (Auto) Baso % (Auto) Absolute Neuts (auto) Absolute Lymphs (auto) Absolute Monos (auto) Absolute Eos (auto) Absolute Basos (auto) Absolute Nucleated RBC Nucleated RBC % INR (Anticoag Therapy) 2.63 H Patient Temperature Not Reportable Not Reportable ABG pH 7.32 L 7.37 ABG pH (Temp Correct) Not Reportable Not Reportable ABG pCO2 43 40 ABG pCO2 (Temp Corrct Not Reportable Not Reportable ABG pO2 67 L 78 L ABG pO2 (Temp Correct Not Reportable Not Reportable ABG HCO3 21.7 23.2 ABG O2 Saturation 94.6 L 96.7 ABG Base Excess -3.9 L -2.0 Respiration Rate Not Reportable Not Reportable O2 Delivery Device bipap Ventilator Type Not Reportable Not Reportable Vent Mode Not Reportable Not Reportable FiO2 100 60 Inspiratory Time Not Reportable Not Reportable PEEP Not Reportable Not Reportable Pressure Support Not Reportable Not Reportable Pressure Control Not Reportable Not Reportable EPAP Not Reportable 8 IPAP Not Reportable 16 BiPAP Not Reportable Not Reportable Sodium Potassium Chloride Carbon Dioxide Anion Gap BUN Creatinine Est GFR ( Amer) Est GFR (Non-Af Amer) BUN/Creatinine Ratio Glucose Hemoglobin A1c Lactic Acid Calcium Magnesium Total Bilirubin AST ALT Alkaline Phosphatase Troponin I C-Reactive Protein Total Protein Albumin Globulin Albumin/Globulin Ratio Triglycerides Cholesterol LDL Cholesterol HDL Cholesterol 02/06/18 02/06/18 02/06/18 04:27 04:27 04:27 WBC 6.4 RBC 3.81 L Hgb 11.5 L Hct 35 MCV 93 MCH 30 MCHC 33 RDW 18 H Plt Count 163 MPV 9.3 Neut % (Auto) 74.4 Lymph % (Auto) 13.6 L [place] % (Auto) 10.5 H Eos % (Auto) 0.5 Baso % (Auto) 1.0 Absolute Neuts (auto) 4.8 Absolute Lymphs (auto) 0.9 L Absolute Monos (auto) 0.7 Absolute Eos (auto) 0 Absolute Basos (auto) 0.1 Absolute Nucleated RBC 0 Nucleated RBC % 0.1 INR (Anticoag Therapy) Patient Temperature ABG pH ABG pH (Temp Correct) ABG pCO2 ABG pCO2 (Temp Corrct ABG pO2 ABG pO2 (Temp Correct ABG HCO3 ABG O2 Saturation ABG Base Excess Respiration Rate O2 Delivery Device Ventilator Type Vent Mode FiO2 Inspiratory Time PEEP Pressure Support Pressure Control EPAP IPAP BiPAP Sodium 140 Potassium 3.7 Chloride 110 Carbon Dioxide 27 Anion Gap 3 BUN 16 Creatinine 1.31 H Est GFR ( Amer) 49.3 Est GFR (Non-Af Amer) 40.7 BUN/Creatinine Ratio 12.2 Glucose 125 H Hemoglobin A1c 5.0 Lactic Acid Calcium 8.3 L Magnesium Total Bilirubin AST ALT Alkaline Phosphatase Troponin I C-Reactive Protein Total Protein Albumin Globulin Albumin/Globulin Ratio Triglycerides 74 Cholesterol 82 LDL Cholesterol 42 HDL Cholesterol 25.7 02/06/18 04:27 WBC RBC Hgb Hct MCV MCH MCHC RDW Plt Count MPV Neut % (Auto) Lymph % (Auto) [place] % (Auto) Eos % (Auto) Baso % (Auto) Absolute Neuts (auto) Absolute Lymphs (auto) Absolute Monos (auto) Absolute Eos (auto) Absolute Basos (auto) Absolute Nucleated RBC Nucleated RBC % INR (Anticoag Therapy) 2.83 H Patient Temperature ABG pH ABG pH (Temp Correct) ABG pCO2 ABG pCO2 (Temp Corrct ABG pO2 ABG pO2 (Temp Correct ABG HCO3 ABG O2 Saturation ABG Base Excess Respiration Rate O2 Delivery Device Ventilator Type Vent Mode FiO2 Inspiratory Time PEEP Pressure Support Pressure Control EPAP IPAP BiPAP Sodium Potassium Chloride Carbon Dioxide Anion Gap BUN Creatinine Est GFR ( Amer) Est GFR (Non-Af Amer) BUN/Creatinine Ratio Glucose Hemoglobin A1c Lactic Acid Calcium Magnesium Total Bilirubin AST ALT Alkaline Phosphatase Troponin I C-Reactive Protein Total Protein Albumin Globulin Albumin/Globulin Ratio Triglycerides Cholesterol LDL Cholesterol HDL Cholesterol Imaging CXR 02/05 IMPRESSION: CARDIOMEGALY. INTERSTITIAL EDEMA CONSISTENT WITH CHF. THERE APPEARS TO BE A LARGE HIATAL HERNIA NOTED Impression 67F htn, diasolic chf, depression, chronic pain, h/o dvt/pe on coumadin, h/o breast ca s/p mastectomy, copd presents with NSTEMI and acute on chronic CHF Plan Neuro - pain control CV - htn, dCHF, NSTEMI, acute on chronic chf - tte pending - diuresis at bp tolerates - may need dobutamine for support - check Mixed venous O2 sat from central line - c/w asa/statin - LHC as per Cardiology Pulm - respiratory failure, copd, - resp failure 2/2 chf - diuresis as tolerated - nebulizers prn for copd - c/w bipap and wean as tolerated ID - UA positive - c/w ceftriaxone - f/u cultures - check ua/uc - check blood cultures - lactate normal GI - npo for now Renal - joshua - 2/2 poor perfusion - will consider dobutamine pending TTE and mixed venous Heme - h/o dvt/pe - monitor inr/cbc Endo - check fs, niss Lines - RIJ TLC (02/06) PPx - gi/dvt Full Code Critical Care Time: 60 mins
[2018-02-06 08:48] LABS: Urine Appearance Cloudy; Urine Blood 3+ (Negative); Urine Color Yellow; Urine Ketones Negative (Negative); Urine Protein Negative (Negative); Urine Red Blood Cell 3+(>10/hpf) (Absent); Urine Specific Gravity 1.009 (1.010-1.030); Urine Urobilinogen Negative (Negative); Urine White Blood Cell 3+(>20/hpf) (Absent)
[2018-02-06] MEDS ORDERED: Docusate CAP* 100 MG PO SCH (09:00)
[2018-02-06] MEDS ORDERED: PARoxetine HCL TAB* 40 MG PO SCH (09:00)
[2018-02-06] MEDS ORDERED: Senna TAB PO SCH (09:00)
[2018-02-06] MEDS ORDERED: PARoxetine HCL TAB* 20 MG PO SCH (09:00)
--- NOTE | 2018-02-06 09:19 | ECHO ---
Patient: ALEXSANDRA TATUM [facility] Rec#: [id number] : 1950 Date: 02/06/2018 Age: 67y Height: 152 cm / 59.8 in Weight: 102 kg / 224.8 lbs Sex: F BSA: 1.96 Room#: ICU 4 Admit Date#: 02/05/2018 Type: Inpatient Referring: Malissa Sánchez Reading: Jose David Blood MD Corn Grower: Kaylin Miller,NICCS,RDMS CC: Orlando Price MD Transthoracic Echocardiogram Indication: OK BP: 97/60 HR: 52 Rhythm: NSR with PVCs Findings History: CHF, PE, DVT, PHTN, smoker, breast cancer Technical Comments: The study quality is fair. The study is technically limited due to poor parasternal windows. The study is technically limited due to patient being on BIPAP during study. Left Ventricle: The left ventricular chamber size is normal. There is moderate to severely decreased left ventricular systolic function. The estimated ejection fraction is 30-35%. There is an E to A reversal in the mitral valve flow pattern suggestive of diastolic dysfunction. The mid inferior wall segment is hypokinetic (score 2). The apical septal, apical anterior, apical lateral, and apical inferior wall segments are akinetic (score 3). Overall wallmotion score index is 2.80 Left Atrium: The left atrium is mildly dilated. Right Ventricle: The right ventricular chamber size and systolic function are within normal limits. Right Atrium: The right atrial cavity size is normal. Aortic Valve: The aortic valve is trileaflet. The aortic valve leaflets are moderately thickened. There is aortic annular calcification. There is mild aortic regurgitation. There is mild aortic stenosis. Mitral Valve: Moderate mitral annular calcification present. The mitral valve leaflets are mildly thickened. There is a trace of mitral regurgitation. There is mild mitral stenosis. Tricuspid Valve: The tricuspid valve leaflets are normal. There is trace to mild tricuspid regurgitation. The right ventricular systolic pressure is estimated at 31 mmHg. No pulmonary hypertension is noted. Pulmonic Valve: The pulmonic valve structure is not well visualized. There is a trace pulmonic regurgitation. There is no pulmonic stenosis. Pericardium: There is no significant pericardial effusion. Aorta: There is mild dilatation of the ascending aorta. There is no dilatation of the aortic arch. There is mild dilatation of the aortic root. Pulmonary Artery: The main pulmonary artery is not well visualized. Venous: The inferior vena cava is dilated. There is no change in the dimension of the inferior vena cava with respiration consistent with markedly increased right atrial pressure. Conclusions There is moderate to severely decreased left ventricular systolic function. The estimated ejection fraction is 30-35%. The apical septal, apical anterior, apical lateral, and apical inferior wall segments are akinetic (score 3). The mid inferior wall segment is hypokinetic (score 2). The left ventricular chamber size is normal. There is an E to A reversal in the mitral valve flow pattern suggestive of diastolic dysfunction. The left atrium is mildly dilated. There is mild aortic regurgitation. There is mild aortic stenosis. There is mild mitral stenosis. There is mild dilatation of the aortic root. There is mild dilatation of the ascending aorta. Since the prior echocardiogram completed 12/09/17, the pertinent change is prior normal left ventricular function with no wall motion abnormalities reported. Measurements Name Value Normal Range RVIDd (AP) 2D 3 cm (0.9 - 2.6) RVDdMajor (2D) 3.2 cm (2.2 - 4.4) RAd ISD 4CH 4.8 cm (3.4 - 4.9) RA (A4C)W 3.5 cm (2.9 - 4.6) IVSd (2D) 1 cm (0.6 - 1) LVPWd (2D) 1.1 cm (0.6 - 1) LVIDd (2D) 3.8 cm (3.6 - 5.4) Aortic Annulus 2.1 cm (1.4 - 2.6) Ao root diameter (2D) 3.6 cm (2.1 - 3.5) Ascending Ao 3.8 cm (2.1 - 3.4) Aortic arch 2.5 cm (1.8 - 3.4) LA dimension (AP) 2D 3.6 cm (2.3 - 3.8) LAd ISD 4CH 5.5 cm (2.9 - 5.3) LA ISD 4CH W 4.2 cm (2.5 - 4.5) Name Value Normal Range LA ESV BP (A/L) index 42 ml/m2 - Name Value Normal Range MV E-wave Vmax 0.9 m/sec - MV deceleration time 327 msec - MV A-wave Vmax 1.3 m/sec - MV E:A ratio 0.7 ratio - LV septal e' Vmax 0.05 m/sec - LV lateral e' Vmax 0.05 m/sec - LV E:e' septal ratio 18 ratio - LV E:e' lateral ratio 18 ratio - Name Value Normal Range AV Vmax 1.3 m/sec - AV VTI 25 cm - AV peak gradient 7 mmHg - AV mean gradient 4 mmHg - LVOT diameter 2 cm - LVOT Vmax 0.7 m/sec - LVOT VTI 14 cm - LVOT peak gradient 2 mmHg - LVOT mean gradient 1 mmHg - JOCELIN (continuity Vmax) 1.7 cm2 - AR PHT 691 msec - Name Value Normal Range MV Vmax 1.2 m/sec - MV VTI 44 cm - MV peak gradient 6 mmHg - MV mean gradient 2 mmHg - MV PHT 106 msec - MVA (PHT) 2.1 cm2 - MVA (continuity VTI) 1 cm2 - Name Value Normal Range TR Vmax 2 m/sec - TR peak gradient 16 mmHg - RAP 15 mmHg - RVSP 31 mmHg - IVC diameter 3.8 cm - Name Value Normal Range PV Vmax 0.4 m/sec - PV peak gradient 1 mmHg - Wallmotion BAS Not Seen BA Not Seen BAL Not Seen SERGEY Not Seen BI Not Seen BIS Not Seen MAS Not Seen MA Not Seen MAL Not Seen MIL Not Seen OK Hypokinetic MIS Not Seen Akinetic AA Akinetic AL Akinetic AI Akinetic APEX Akinetic
[2018-02-06] MEDS: Pregabalin CAP(*) 25 MG PO SCH ×2 (10:38→13:50)
[2018-02-06] MEDS: NF:Umeclidin/Vilant 62.5 MDI 62.5/25 mcg 14 INH ELLIPTA DEVICE INH SCH (10:39)
--- NOTE | 2018-02-06 11:37 | DS ---
Patient Name: Elidia Hutton Admission Date: 02/05/18 Discharge Date: 02/06/18 Attending Physician: Ceasar Florentino Primary Care Physician: Nancy Consulting Physician(s): Jose David Blood MD, Orlando Velez Condition on Discharge: Stable Final Diagnosis: Current Active Problems Acute respiratory failure (Acute) J96.00 Acute systolic CHF (congestive heart failure) (Acute) I50.21 Acute myocardial infarction (Acute) I21.9 CAD (coronary artery disease) (Acute) I25.10 Procedures: CXR 02/05 IMPRESSION: CARDIOMEGALY. INTERSTITIAL EDEMA CONSISTENT WITH CHF. THERE APPEARS TO BE A LARGE HIATAL HERNIA NOTED TTE 02/06 Conclusions There is moderate to severely decreased left ventricular systolic function. The estimated ejection fraction is 30-35%. The apical septal, apical anterior, apical lateral, and apical inferior wall segments are akinetic (score 3). The mid inferior wall segment is hypokinetic (score 2). The left ventricular chamber size is normal. There is an E to A reversal in the mitral valve flow pattern suggestive of diastolic dysfunction. The left atrium is mildly dilated. There is mild aortic regurgitation. There is mild aortic stenosis. There is mild mitral stenosis. There is mild dilatation of the aortic root. There is mild dilatation of the ascending aorta. Since the prior echocardiogram completed 12/09/17, the pertinent change is prior normal left ventricular function with no wall motion abnormalities reported. History of Present Illness: 67F with htn, diasolic chf, depression, chronic pain, h/o dvt/pe on coumadin, h/ o breast ca s/p mastectomy, copd presents from [facility] with chest pain and shortness of breath. She was found to have new twi on her ekg, and an elevated troponin. She was transferred to [facility] for evaluation for [facility]. On arrival to ICU she was markedly hypoxic and her cxr was suggestive of CHF. She was started on bipap and given lasix. Overnight she became hypotensive and the night team started small boluses of iv fluids. The patient currently denies chest pain but remains on bipap and requiring supplemental o2 to maintain adequate oxygenation. UA at the outside hospital was positive. Laboratory/Data Laboratory Results - last 24 hr 02/05/18 02/05/18 02/05/18 15:20 15:20 15:20 WBC 10.1 RBC 4.43 Hgb 13.4 Hct 41 MCV 93 MCH 30 MCHC 33 RDW 18 H Plt Count 185 MPV 9.2 Neut % (Auto) 83.9 H Lymph % (Auto) 7.8 L Canadian % (Auto) 6.8 Eos % (Auto) 0.9 Baso % (Auto) 0.6 Absolute Neuts (auto) 8.5 H Absolute Lymphs (auto) 0.8 L Absolute Monos (auto) 0.7 Absolute Eos (auto) 0.1 Absolute Basos (auto) 0.1 Absolute Nucleated RBC 0 Nucleated RBC % 0.1 INR (Anticoag Therapy) Patient Temperature ABG pH ABG pH (Temp Correct) ABG pCO2 ABG pCO2 (Temp Corrct ABG pO2 ABG pO2 (Temp Correct ABG HCO3 ABG O2 Saturation ABG Base Excess VBG pH VBG pCO2 VBG pO2 VBG HCO3 VBG O2 Saturation VBG Base Excess Respiration Rate O2 Delivery Device Ventilator Type Vent Mode FiO2 Inspiratory Time PEEP Pressure Support Pressure Control EPAP IPAP BiPAP Sodium 141 Potassium 3.8 Chloride 109 Carbon Dioxide 26 Anion Gap 6 BUN 15 Creatinine 1.16 H Est GFR ( Amer) 56.7 Est GFR (Non-Af Amer) 46.9 BUN/Creatinine Ratio 12.9 Glucose 111 H Hemoglobin A1c Lactic Acid 1.8 Calcium 9.1 Magnesium 2.1 Total Bilirubin 0.90 AST 22 ALT 12 Alkaline Phosphatase 116 H Troponin I 0.46 H* C-Reactive Protein 19.96 H Total Protein 6.7 Albumin 3.6 Globulin 3.1 Albumin/Globulin Ratio 1.2 Triglycerides Cholesterol LDL Cholesterol HDL Cholesterol Urine Color Urine Appearance Urine pH Ur Specific Berthold Urine Protein Urine Ketones Urine Blood Urine Nitrate Urine Bilirubin Urine Urobilinogen Ur Leukocyte Esterase Urine WBC (Auto) Urine RBC (Auto) Ur Squamous Epith Cells Urine Bacteria Hyaline Casts Urine Glucose 02/05/18 02/05/18 02/05/18 15:20 17:40 19:10 WBC RBC Hgb Hct MCV MCH MCHC RDW Plt Count MPV Neut % (Auto) Lymph % (Auto) Canadian % (Auto) Eos % (Auto) Baso % (Auto) Absolute Neuts (auto) Absolute Lymphs (auto) Absolute Monos (auto) Absolute Eos (auto) Absolute Basos (auto) Absolute Nucleated RBC Nucleated RBC % INR (Anticoag Therapy) 2.63 H Patient Temperature Not Reportable Not Reportable ABG pH 7.32 L 7.37 ABG pH (Temp Correct) Not Reportable Not Reportable ABG pCO2 43 40 ABG pCO2 (Temp Corrct Not Reportable Not Reportable ABG pO2 67 L 78 L ABG pO2 (Temp Correct Not Reportable Not Reportable ABG HCO3 21.7 23.2 ABG O2 Saturation 94.6 L 96.7 ABG Base Excess -3.9 L -2.0 VBG pH VBG pCO2 VBG pO2 VBG HCO3 VBG O2 Saturation VBG Base Excess Respiration Rate Not Reportable Not Reportable O2 Delivery Device bipap Ventilator Type Not Reportable Not Reportable Vent Mode Not Reportable Not Reportable FiO2 100 60 Inspiratory Time Not Reportable Not Reportable PEEP Not Reportable Not Reportable Pressure Support Not Reportable Not Reportable Pressure Control Not Reportable Not Reportable EPAP Not Reportable 8 IPAP Not Reportable 16 BiPAP Not Reportable Not Reportable Sodium Potassium Chloride Carbon Dioxide Anion Gap BUN Creatinine Est GFR ( Amer) Est GFR (Non-Af Amer) BUN/Creatinine Ratio Glucose Hemoglobin A1c Lactic Acid Calcium Magnesium Total Bilirubin AST ALT Alkaline Phosphatase Troponin I C-Reactive Protein Total Protein Albumin Globulin Albumin/Globulin Ratio Triglycerides Cholesterol LDL Cholesterol HDL Cholesterol Urine Color Urine Appearance Urine pH Ur Specific Ber[place]old Urine Protein Urine Ketones Urine Blood Urine Nitrate Urine Bilirubin Urine Urobilinogen Ur Leukocyte Esterase Urine WBC (Auto) Urine RBC (Auto) Ur Squamous Epith Cells Urine Bacteria Hyaline Casts Urine Glucose 02/06/18 02/06/18 02/06/18 04:27 04:27 04:27 WBC 6.4 RBC 3.81 L Hgb 11.5 L Hct 35 MCV 93 MCH 30 MCHC 33 RDW 18 H Plt Count 163 MPV 9.3 Neut % (Auto) 74.4 Lymph % (Auto) 13.6 L Canadian % (Auto) 10.5 H Eos % (Auto) 0.5 Baso % (Auto) 1.0 Absolute Neuts (auto) 4.8 Absolute Lymphs (auto) 0.9 L Absolute Monos (auto) 0.7 Absolute Eos (auto) 0 Absolute Basos (auto) 0.1 Absolute Nucleated RBC 0 Nucleated RBC % 0.1 INR (Anticoag Therapy) Patient Temperature ABG pH ABG pH (Temp Correct) ABG pCO2 ABG pCO2 (Temp Corrct ABG pO2 ABG pO2 (Temp Correct ABG HCO3 ABG O2 Saturation ABG Base Excess VBG pH VBG pCO2 VBG pO2 VBG HCO3 VBG O2 Saturation VBG Base Excess Respiration Rate O2 Delivery Device Ventilator Type Vent Mode FiO2 Inspiratory Time PEEP Pressure Support Pressure Control EPAP IPAP BiPAP Sodium 140 Potassium 3.7 Chloride 110 Carbon Dioxide 27 Anion Gap 3 BUN 16 Creatinine 1.31 H Est GFR ( Amer) 49.3 Est GFR (Non-Af Amer) 40.7 BUN/Creatinine Ratio 12.2 Glucose 125 H Hemoglobin A1c 5.0 Lactic Acid Calcium 8.3 L Magnesium Total Bilirubin AST ALT Alkaline Phosphatase Troponin I C-Reactive Protein Total Protein Albumin Globulin Albumin/Globulin Ratio Triglycerides 74 Cholesterol 82 LDL Cholesterol 42 HDL Cholesterol 25.7 Urine Color Urine Appearance Urine pH Ur Specific Ber[place]old Urine Protein Urine Ketones Urine Blood Urine Nitrate Urine Bilirubin Urine Urobilinogen Ur Leukocyte Esterase Urine WBC (Auto) Urine RBC (Auto) Ur Squamous Epith Cells Urine Bacteria Hyaline Casts Urine Glucose 02/06/18 02/06/18 02/06/18 04:27 08:05 08:35 WBC RBC Hgb Hct MCV MCH MCHC RDW Plt Count MPV Neut % (Auto) Lymph % (Auto) Canadian % (Auto) Eos % (Auto) Baso % (Auto) Absolute Neuts (auto) Absolute Lymphs (auto) Absolute Monos (auto) Absolute Eos (auto) Absolute Basos (auto) Absolute Nucleated RBC Nucleated RBC % INR (Anticoag Therapy) 2.83 H Patient Temperature ABG pH ABG pH (Temp Correct) ABG pCO2 ABG pCO2 (Temp Corrct ABG pO2 ABG pO2 (Temp Correct ABG HCO3 ABG O2 Saturation ABG Base Excess VBG pH 7.29 L VBG pCO2 55 H VBG pO2 37 VBG HCO3 23.5 L VBG O2 Saturation 69.4 L VBG Base Excess -0.9 L Respiration Rate O2 Delivery Device Ventilator Type Vent Mode FiO2 Inspiratory Time PEEP Pressure Support Pressure Control EPAP IPAP BiPAP Sodium Potassium Chloride Carbon Dioxide Anion Gap BUN Creatinine Est GFR ( Amer) Est GFR (Non-Af Amer) BUN/Creatinine Ratio Glucose Hemoglobin A1c Lactic Acid Calcium Magnesium Total Bilirubin AST ALT Alkaline Phosphatase Troponin I C-Reactive Protein Total Protein Albumin Globulin Albumin/Globulin Ratio Triglycerides Cholesterol LDL Cholesterol HDL Cholesterol Urine Color Yellow Urine Appearance Cloudy Urine pH 5.0 Ur Specific Ber[place] 1.009 L Urine Protein Negative Urine Ketones Negative Urine Blood 3+ A Urine Nitrate Negative Urine Bilirubin Negative Urine Urobilinogen Negative Ur Leukocyte Esterase 3+ A Urine WBC (Auto) 3+(>20/hpf) A Urine RBC (Auto) 3+(>10/hpf) A Ur Squamous Epith Cells Present A Urine Bacteria 1+ A Hyaline Casts Present A Urine Glucose Negative 02/06/18 09:40 WBC RBC Hgb Hct MCV MCH MCHC RDW Plt Count MPV Neut % (Auto) Lymph % (Auto) Canadian % (Auto) Eos % (Auto) Baso % (Auto) Absolute Neuts (auto) Absolute Lymphs (auto) Absolute Monos (auto) Absolute Eos (auto) Absolute Basos (auto) Absolute Nucleated RBC Nucleated RBC % INR (Anticoag Therapy) Patient Temperature ABG pH ABG pH (Temp Correct) ABG pCO2 ABG pCO2 (Temp Corrct ABG pO2 ABG pO2 (Temp Correct ABG HCO3 ABG O2 Saturation ABG Base Excess VBG pH VBG pCO2 VBG pO2 VBG HCO3 VBG O2 Saturation VBG Base Excess Respiration Rate O2 Delivery Device Ventilator Type Vent Mode FiO2 Inspiratory Time PEEP Pressure Support Pressure Control EPAP IPAP BiPAP Sodium Potassium Chloride Carbon Dioxide Anion Gap BUN Creatinine Est GFR ( Amer) Est GFR (Non-Af Amer) BUN/Creatinine Ratio Glucose Hemoglobin A1c Lactic Acid Calcium Magnesium Total Bilirubin AST ALT Alkaline Phosphatase Troponin I 0.26 H* C-Reactive Protein Total Protein Albumin Globulin Albumin/Globulin Ratio Triglycerides Cholesterol LDL Cholesterol HDL Cholesterol Urine Color Urine Appearance Urine pH Ur Specific Ber[place]old Urine Protein Urine Ketones Urine Blood Urine Nitrate Urine Bilirubin Urine Urobilinogen Ur Leukocyte Esterase Urine WBC (Auto) Urine RBC (Auto) Ur Squamous Epith Cells Urine Bacteria Hyaline Casts Urine Glucose Hospital Course The patient was admitted to the ICU. She had an echo that showed new regional wall motion abnormalities. She required bipap for hypoxic respiratory failure. She was evaluated by interventional cardiology who felt that the patient would be a high risk PCI and may need mechanical cardiac support which our facility does not have available. Arrangements were made to transfer the patient to a higher level of care. Discharge Medications Acetaminophen (Tylenol Tab*) 650 mg PO Q4H PRN PRN Reason: FEVER/PAIN Aspirin (Aspirin 81 Mg Chew Tab*) 81 mg PO DAILY [facility] Last Admin: 02/06/18 07:56 Dose: 81 mg Atorvastatin Calcium (Lipitor*) 80 mg PO 1700 [facility] Last Admin: 02/05/18 15:52 Dose: 80 mg Docusate Sodium (Colace Cap*) 100 mg PO DAILY [facility] Last Admin: 02/06/18 07:55 Dose: 100 mg Ceftriaxone Sodium 1 gm/ (Sodium Chloride) 50 mls @ 200 mls/hr IVPB Q24H [facility] Last Admin: 02/05/18 16:07 Dose: 200 mls/hr Sodium Chloride (Ns 0.9% 1000 Ml*) 250 mls @ 250 mls/hr IV .ENTER RATE [facility] Last Admin: 02/06/18 04:03 Dose: 999 mls/hr Norepinephrine Bitartrate (Levophed 16 Mcg/Ml Premix Bag*) 4,000 mcg in 250 mls @ 18.75 mls/hr IV .INITIAL RATE [facility]; Protocol Levalbuterol HCl (Xopenex 1.25 Mg/0.5 Ml Neb.Grace*) 1.25 mg INH Q2H PRN PRN Reason: SOB/WHEEZING Morphine Sulfate (Morphine Vial*) 2 mg IV Q4H PRN PRN Reason: Pain/SOB Last Admin: 02/05/18 22:31 Dose: 2 mg Multi-Ingredient Ointment (Hydrocerin*) 1 applic TOPICAL TID [facility] Last Admin: 02/06/18 07:58 Dose: 1 applic Nystatin (Nystatin Top Powder*) 1 applic TOPICAL TID [facility] Last Admin: 02/06/18 07:58 Dose: 1 applic Ondansetron HCl (Zofran Inj*) 4 mg IV Q6H PRN PRN Reason: NAUSEA/VOMITING Last Admin: 02/05/18 15:48 Dose: 4 mg Oxycodone HCl (Oxycontin(*)) 10 mg PO BID [facility] Last Admin: 02/06/18 07:55 Dose: 10 mg Oxycodone/Acetaminophen (Percocet 5/325 Tab*) 1 tab PO Q6H PRN PRN Reason: PAIN Paroxetine HCl (Paxil Tab*) 20 mg PO QAM [facility] Last Admin: 02/06/18 08:46 Dose: 20 mg Phenyleph/Shark Oil/Min Oil/Petrol (Preparation H*) 1 applic TOPICAL Q6H PRN PRN Reason: HEMORRHOIDAL PAIN Potassium Chloride (Klor Con Er Tab*) 20 meq PO BID [facility] Last Admin: 02/06/18 07:56 Dose: 20 meq Pramipexole Dihydrochloride (Mirapex Tab*) 2 mg PO QAM [facility] Last Admin: 02/06/18 07:58 Dose: 2 mg Pregabalin (Lyrica Cap(*)) 50 mg PO TID [facility] Last Admin: 02/06/18 10:38 Dose: 50 mg Senna (Senokot Tab*) 1 tab PO DAILY [facility] Last Admin: 02/06/18 07:55 Dose: 1 tab Umeclidinium/Vilanterol (Anoro 62.5/25 Ellipta Device (Nf)) 1 inh INH DAILY [facility] Last Admin: 02/06/18 10:39 Dose: Not Given Discharge Instructions Please follow up with your medical team at the [facility]. Code Status Full Code
[2018-02-06] MEDS: cefTRIAXone(*) 1 GM in NS 0.9% 50 ML* 50 ML IVPB SCH (15:10)
--- NOTE | 2018-02-06 15:47 | PN ---
Subjective Date of Service: 02/06/18 Interval History: Patient seen this AM, c/o SOB sudden onset night. Objective Active Medications: Acetaminophen (Tylenol Tab*) 650 mg PO Q4H PRN PRN Reason: FEVER/PAIN Aspirin (Aspirin 81 Mg Chew Tab*) 81 mg PO DAILY [facility] Last Admin: 02/06/18 07:56 Dose: 81 mg Atorvastatin Calcium (Lipitor*) 80 mg PO 1700 [facility] Last Admin: 02/05/18 15:52 Dose: 80 mg Docusate Sodium (Colace Cap*) 100 mg PO DAILY [facility] Last Admin: 02/06/18 07:55 Dose: 100 mg Ceftriaxone Sodium 1 gm/ (Sodium Chloride) 50 mls @ 200 mls/hr IVPB Q24H [facility] Last Admin: 02/06/18 15:10 Dose: 200 mls/hr Sodium Chloride (Ns 0.9% 1000 Ml*) 250 mls @ 250 mls/hr IV .ENTER RATE [facility] Last Admin: 02/06/18 04:03 Dose: 999 mls/hr Norepinephrine Bitartrate (Levophed 16 Mcg/Ml Premix Bag*) 4,000 mcg in 250 mls @ 18.75 mls/hr IV .INITIAL RATE [facility]; Protocol Levalbuterol HCl (Xopenex 1.25 Mg/0.5 Ml Neb.Grace*) 1.25 mg INH Q2H PRN PRN Reason: SOB/WHEEZING Morphine Sulfate (Morphine Vial*) 2 mg IV Q4H PRN PRN Reason: Pain/SOB Last Admin: 02/05/18 22:31 Dose: 2 mg Multi-Ingredient Ointment (Hydrocerin*) 1 applic TOPICAL TID [facility] Last Admin: 02/06/18 13:33 Dose: 1 applic Nystatin (Nystatin Top Powder*) 1 applic TOPICAL TID [facility] Last Admin: 02/06/18 13:32 Dose: 1 applic Ondansetron HCl (Zofran Inj*) 4 mg IV Q6H PRN PRN Reason: NAUSEA/VOMITING Last Admin: 02/05/18 15:48 Dose: 4 mg Oxycodone HCl (Oxycontin(*)) 10 mg PO BID [facility] Last Admin: 02/06/18 07:55 Dose: 10 mg Oxycodone/Acetaminophen (Percocet 5/325 Tab*) 1 tab PO Q6H PRN PRN Reason: PAIN Paroxetine HCl (Paxil Tab*) 20 mg PO QAM [facility] Last Admin: 02/06/18 08:46 Dose: 20 mg Phenyleph/Shark Oil/Min Oil/Petrol (Preparation H*) 1 applic TOPICAL Q6H PRN PRN Reason: HEMORRHOIDAL PAIN Potassium Chloride (Klor Con Er Tab*) 20 meq PO BID [facility] Last Admin: 02/06/18 07:56 Dose: 20 meq Pramipexole Dihydrochloride (Mirapex Tab*) 2 mg PO QAM [facility] Last Admin: 02/06/18 07:58 Dose: 2 mg Pregabalin (Lyrica Cap(*)) 50 mg PO TID [facility] Last Admin: 02/06/18 13:50 Dose: 50 mg Senna (Senokot Tab*) 1 tab PO DAILY [facility] Last Admin: 02/06/18 07:55 Dose: 1 tab Umeclidinium/Vilanterol (Anoro 62.5/25 Ellipta Device (Nf)) 1 inh INH DAILY [facility] Last Admin: 02/06/18 10:39 Dose: Not Given Vital Signs - 8 hr 02/06/18 02/06/18 02/06/18 07:42 07:55 07:58 Temperature 97.5 F Pulse Rate 65 Respiratory 13 19 Rate Blood Pressure 103/48 (mmHg) O2 Sat by Pulse 99 Oximetry 02/06/18 02/06/18 02/06/18 08:00 08:01 09:00 Temperature Pulse Rate 61 63 65 Respiratory 13 27 17 Rate Blood Pressure 92/52 (mmHg) O2 Sat by Pulse 97 100 100 Oximetry 02/06/18 02/06/18 02/06/18 09:01 10:00 10:53 Temperature Pulse Rate 64 70 69 Respiratory 15 19 15 Rate Blood Pressure 90/62 117/72 96/63 (mmHg) O2 Sat by Pulse 100 95 97 Oximetry 02/06/18 02/06/18 02/06/18 11:00 11:15 11:50 Temperature 98.5 F Pulse Rate 65 Respiratory 15 9 Rate Blood Pressure 105/64 (mmHg) O2 Sat by Pulse 96 Oximetry 02/06/18 02/06/18 02/06/18 12:00 12:01 13:00 Temperature Pulse Rate 92 60 67 Respiratory 4 0 21 Rate Blood Pressure 96/56 (mmHg) O2 Sat by Pulse 92 92 97 Oximetry 02/06/18 02/06/18 02/06/18 13:01 14:00 14:01 Temperature Pulse Rate 66 68 67 Respiratory 17 17 9 Rate Blood Pressure 113/70 107/54 (mmHg) O2 Sat by Pulse 98 100 100 Oximetry 02/06/18 15:00 Temperature Pulse Rate 68 Respiratory 18 Rate Blood Pressure 104/70 (mmHg) O2 Sat by Pulse 100 Oximetry Oxygen Devices in Use Now: High Flow Heated Nasal Cannula Appearance: Partly up in ICU bed. Eyes: No Scleral Icterus Respiratory: Symmetrical Chest Expansion and Respiratory Effort, Clear to Percussion, - - mild wheezing BL Abdominal: NL Sounds; No Tenderness; No Distention, No Hepatosplenomegaly, - Extremities: No Edema, No Clubbing, Cyanosis, - Skin: No Rash or Ulcers, No Nodules or Sclerosis, - Neurological: Alert and Oriented x 3, NL Sensation Result Diagrams: 02/06/18 04:27 02/06/18 04:27 Assess/Plan/Problems-Billing Assessment: - Patient Problems (1) CAD (coronary artery disease) Current Visit: No Status: Acute Code(s): I25.10 - ATHSCL HEART DISEASE OF [place] CORONARY ARTERY W/O ANG PCTRS SNOMED Code(s): 36715510 Comment: CHF clinically. Low BP and poor oxygenation are indicators of severe disease. I have aske Dr. Florentino to see the patient. He subsequently has arranged for transfer to [facility]. (2) COPD (chronic obstructive pulmonary disease) Current Visit: Yes Status: Acute Code(s): J44.9 - CHRONIC OBSTRUCTIVE PULMONARY DISEASE, UNSPECIFIED SNOMED Code(s): 63783818 Comment: Levalbuterol ordered. (3) Tobacco abuse Current Visit: Yes Status: Acute Code(s): Z72.0 - TOBACCO USE SNOMED Code( s): 085159223 Comment: Pt states she last smoked 3 days prior to admission. Status and Disposition: Patient in process of being transferred to [facility].
[2018-02-06 16:38] VITALS: BP 92/60
== END 2018-02-06 16:25 | disposition short-term general hospital (02) | DRG 280 ==
LOC: ICU 12:57
PROVIDERS: ADMIT Internal Medicine; ATTEND Internal Medicine
PROC: 05HM33Z Insertion of Infusion Device into Right Internal Jugular Vein, Percutaneous Approach (ICD-10-PCS; principal; 2018-02-05)
PROC: B543ZZA Ultrasonography of Right Jugular Veins, Guidance (ICD-10-PCS; 2018-02-05)
PROC: 5A09457 Assistance with Respiratory Ventilation, 24-96 Consecutive Hours, Continuous Positive Airway Pressure (ICD-10-PCS; 2018-02-05)
DX: I21.4 Non-ST elevation (NSTEMI) myocardial infarction (principal); I50.33 Acute on chronic diastolic (congestive) heart failure; J96.01 Acute respiratory failure with hypoxia; K92.1 Melena; N39.0 Urinary tract infection, site not specified; N17.9 Acute kidney failure, unspecified; Z68.41 Body mass index [BMI] 40.0-44.9, adult; I95.9 Hypotension, unspecified; I11.0 Hypertensive heart disease with heart failure; E66.01 Morbid (severe) obesity due to excess calories; J44.9 Chronic obstructive pulmonary disease, unspecified; M41.9 Scoliosis, unspecified; G25.81 Restless legs syndrome; G89.29 Other chronic pain; F32.9 Major depressive disorder, single episode, unspecified; F17.210 Nicotine dependence, cigarettes, uncomplicated; K44.9 Diaphragmatic hernia without obstruction or gangrene; I87.2 Venous insufficiency (chronic) (peripheral); Z86.718 Personal history of other venous thrombosis and embolism; Z86.711 Personal history of pulmonary embolism; Z79.01 Long term (current) use of anticoagulants; Z79.891 Long term (current) use of opiate analgesic; Z79.899 Other long term (current) drug therapy; Z88.8 Allergy status to other drugs, medicaments and biological substances; Z91.048 Other nonmedicinal substance allergy status; Z85.3 Personal history of malignant neoplasm of breast; Z82.69 Family history of other diseases of the musculoskeletal system and connective tissue; Z82.3 Family history of stroke; Z83.3 Family history of diabetes mellitus
CPT/HCPCS: 36415; 36600; 71045; 80048; 80053; 80061; 81003; 81015; 82803; 83036; 83605; 83735; 84484; 85025; 85610; 86140; 87040; 87086; 93005; 93306; 94640; 94660; A9270-GY; J0696; J1940; J2270; J2405; J3480